=== PATIENT | male | born 1990 | race Caucasian/White ===

== ENCOUNTER → 2020-02-22 15:01 | Outpatient (BNVA) | payer OTHER, SELFPAY | PROVIDERS: PCP Internal Medicine; Visit Provider Internal Medicine Gastroenterology | DX: Z76.89 Persons encountering health services in other specified circumstances (principal) ==

== ENCOUNTER → 2020-03-20 10:11 | Outpatient (BNVA) | payer OTHER, SELFPAY | PROVIDERS: PCP Internal Medicine; Visit Provider Nurse Practitioner Family ==

== ENCOUNTER 2020-04-11 07:03 | Outpatient (REF) | payer OTHER, SELFPAY | END 2020-04-11 07:04 | disposition home or self-care (01) | LOC: HO.RADIR 07:03 | PROVIDERS: Visit Provider Anesthesiology | DX: Z13.89 Encounter for screening for other disorder (principal) ==

== ENCOUNTER 2020-05-02 06:09 | Outpatient (REF) | payer OTHER, SELFPAY ==
--- NOTE | ~2020-05-02 | FL_ITS ---
EXAMINATION: XR FLUOROSCOPY WITH IMAGES CLINICAL INFORMATION: Alcohol and diffuse chronic pancreatitis. COMPARISON: None. TECHNIQUE: Fluoroscopy performed by RHYS Vázquez. Fluoroscopy time: 11.4 minutes DAP: 13.1 Gycm2 Images: 2 FINDINGS: There is a AP and lateral views of the dorsal thoracic or lumbar spine. There is a needle introduced with a right-sided approach in the retroperitoneal region with contrast opacifying right and left retroperitoneal space. No gross bony abnormality seen. FL/FL guidance in treatment room IMPRESSION: Fluoroscopy guidance was utilized by the referring physician for retroperitoneal space opacification..
== END 2020-05-02 06:10 | disposition home or self-care (01) ==
LOC: HO.RADIR 06:09
PROVIDERS: Visit Provider Anesthesiology
DX: K86.0 Alcohol-induced chronic pancreatitis (principal); R10.9 Unspecified abdominal pain; G89.29 Other chronic pain
CPT/HCPCS: 64680; J3300; Q9967

== ENCOUNTER 2020-05-07 09:57 | Emergency (ER) | payer OTHER, SELFPAY ==
--- NOTE | ~2020-05-07 | CT_ITS ---
EXAMINATION: CT ABDOMEN AND PELVIS WITH CONTRAST CLINICAL INFORMATION: Abdominal pain. COMPARISON: Most recent prior CT of the abdomen and pelvis dated 09/28/2019. TECHNIQUE: Multidetector volumetric images were obtained from the superior aspect of the liver through the pubic symphysis following administration of 75 mL of Omnipaque 350 intravenous contrast. Sagittal and coronal reformatted images were obtained on the technologist's workstation. Oral contrast: No This CT examination was performed using dose optimization techniques as appropriate, variously including the following: *Automated exposure control *Adjustment of mA and/or kV according to patient size (this includes techniques or standardized protocols for targeted exams where dose is matched to indication/reason for exam; i.e. extremities or head) *Use of iterative reconstruction technique DLP: 351 mGy-cm FINDINGS: LUNG BASES: The visualized lung bases are unremarkable. LIVER, GALLBLADDER, AND BILIARY TREE: The liver is normal in size, shape, and attenuation. Subtle linear hypodensity around the falciform ligament, most consistent with focal fatty infiltration is noted, similar to prior study. No biliary ductal dilatation is present. The gallbladder is unremarkable with no evidence of radiopaque gallstones, gallbladder wall thickening, or obvious pericholecystic inflammatory changes. PANCREAS: Abnormal, shows diffuse punctate calcifications throughout the entire pancreatic gland, similar to prior study, consistent with chronic calcific pancreatitis. No evidence of any peripancreatic fluid collection, ductal dilatation, mass or lymphadenopathy present, unchanged. SPLEEN: Unremarkable. ADRENAL GLANDS: Unremarkable. KIDNEYS AND URETERS: The kidneys are normal in size, shape, and attenuation. No hydronephrosis, hydroureter, or calculi seen. No perinephric stranding. BLADDER: Distended, likely physiologic. GASTROINTESTINAL TRACT: The small and large bowel are unremarkable. The appendix is unremarkable (image #37 series 5). ABDOMINAL WALL: No significant hernia is appreciated. LYMPH NODES: Normal. VASCULAR: Unremarkable. PELVIC VISCERA: Unremarkable. No evidence of any free fluid or free air present. Multiple phleboliths are seen. OSSEOUS STRUCTURES: Unremarkable. CT/CT abdomen pelvis w con IMPRESSION: 1. No CT evidence of any acute intra-abdominal and/or intrapelvic pathology is present. 2. Evidence of chronic calcific pancreatitis without any superimposed acute complication, appears similar to prior study dated 09/28/2019. 3. Distended urinary bladder, likely physiologic.
[2020-05-07 10:14] VITALS: BP 123/86; BP 142/90; PULSE 65; PULSE 82; RESP 20; TEMP 36.7; O2SAT 100; O2SAT 99; BMI 21.5
--- NOTE | 2020-05-07 11:08 | ED.ABDPAIN ---
HPI - Abdominal Pain General Chief Complaint: Abdominal Pain Stated Complaint: abd pain, chronic pancreatitis Time Seen by Provider: 05/07/20 10:57 Source: EMS Mode of arrival: EMS Limitations: no limitations History of Present Illness HPI narrative: 29-year-old male with history of anxiety disorder and chronic pancreatitis in the setting of alcohol abuse has had chronic recurrent abdominal pain secondary to this last drink alcohol 2 years ago being seen by Gastroenterology here as well as pain management most recently on 05/02/2020 (5 days ago) has had celiac plexus block pain management here he presents via EMS with complaint of diffuse upper abdominal pain in the epigastrium and left upper quadrant states it feels like bout of pancreatitis. States he has had significant pain and associated nausea with several episodes of vomiting. States the nerve block felt like it helped for a day however has not had much relief since. Denies any diarrhea, fever, chest pain or shortness of breath. No recent URI. MD elicited complaint: abdominal pain Onset (ago): hour(s) Pain Consistency: constant Location: diffuse Severity: severe Quality: aching and sharp Migration to: no migration Exacerbating factors: eating Relieving factors: nothing Associated symptoms: nausea and vomiting Related Data Home Medications Medication Instructions Recorded Confirmed clonazepam 2 mg tablet 1 mg PO BID 02/22/20 05/07/20 diclofenac potassium 50 mg tablet 50 mg PO DAILY 02/22/20 05/07/20 trazodone 100 mg tablet 100 mg PO BID 03/20/20 05/07/20 Previous Rx's Medication Instructions Recorded mirtazapine 15 mg tablet 15 mg PO BEDTIME #30 tab 02/22/20 enqfpb-gdyytjdo-odqriyn 3 cap PO TID 30 Days #270 cap 03/16/20 12,000-38,000-60,000 unit capsule,delayed rel hyoscyamine sulfate 0.125 mg 0.125 mg PO BID-QID PRN #60 tab 03/30/20 disintegrating tablet linaclotide 290 mcg capsule 290 mcg PO QAM 30 Days #30 cap 04/19/20 diazepam 5 mg tablet 5 mg PO ONCE PRN #2 tab 04/30/20 dicyclomine 20 mg PO BID #10 tab 05/07/20 ondansetron HCl [Zofran] 4 mg PO Q8H PRN #10 tab 05/07/20 Allergies Allergy/AdvReac Type Severity Reaction Status Date / Time No Known Allergies Allergy Verified 05/02/20 14:50 [No Known Allergies*] Review of Systems Review of Systems Constitutional: No Weight loss, No Fever, No Chills, No Night Sweats, No Fatigue, No Malaise ENT/Mouth: No Hearing loss, No Ear Pain, No Nasal Congestion, No Sinus Pain, No Hoarseness, No sore throat, No Rhinorrhea, No Swallowing Difficulty Eyes: No Eye Pain, No Swelling, No Redness, No Foreign Body, No Discharge, No Vision Changes Cardiovascular: No Chest Pain, No SOB, No Dyspnea on Exertion, No Orthopnea, No Edema, No Palpitations Respiratory: No Cough, No Sputum, No Wheezing, No Smoke Exposure, No Dyspnea Gastrointestinal: As noted per HPI, No Hematochezia, No Melena Genitourinary: No Dysuria, No Urinary Frequency, No Hematuria, No Urinary Incontinence, No Urgency, No Flank Pain, No Urinary Flow Changes, No Hesitancy Musculoskeletal: No joint pain, No Myalgias, No Joint Swelling Skin: No Skin Lesions, No rash Neuro: No Weakness, No Numbness, No Paresthesias, No Loss of Consciousness, No Dizziness, No Headache Psych: No Anxiety/Panic, No Depression, No SI/HI/AH/VH Heme/Lymph: No Bruising, No Bleeding,No Lymphadenopathy Endocrine: No Polyuria, No Polydipsia, No Temperature Intolerance Yes all other systems are reviewed and are negative Physical Exam Vital Signs: Vital Signs: Last Vital Signs Temp 97.6 F 05/07/20 12:49 Pulse 82 05/07/20 15:38 Resp 16 05/07/20 15:38 BP 130/72 05/07/20 15:38 Pulse Ox 97 05/07/20 15:38 Body Mass Index 21.5 Reviewed Const: General: acute distress (Appears uncomfortable in pain grimacing) moderate; No intoxicated appearing Nutritional Appearance: average body habitus Orientation/consciousness: patient oriented x3 HENMT: Head: Yes normal to inspection Ears: hearing grossly normal bilaterally Eyes: General: appearance normal, both eyes and all related structures Visual Rolle: normal visual rolle by confrontation Neck: Neck: Yes normal visual inspection, No positive Brudzinski's sign, No positive Kernig's sign and No tender Thyroid: Thyroid normal Chest: Chest palpation & inspection: normal inspection of the chest Resp: Effort & Inspection: normal respiratory effort Auscultation: clear to auscultation bilaterally Cardio: Jugular venous distension: no JVD Rhythm: regular rhythm Heart sounds: S1 normal heart sound present and S2 normal heart sound present GI: Inspection: Yes normal to inspection Palpation (GI): Soft to palpation and Tenderness to palpation present (GI) in the epigastrum and in the LUQ Percussion: Yes normal to percussion Auscultation: normal bowel sounds : General: Yes no CVA tenderness Back/Spine/Pelvis: Back: no CVA tenderness Skin: General skin exam: no rashes or lesions noted Neuro: General: patient oriented x3 Extrem: General: Yes normal to inspection Psych: Other: Anxious appearing MDM - Abdominal Pain MDM Narrative Medical decision making narrative: Requiring several rounds of pain medication though labs were stable given the significant pain CT of the abdomen pelvis done to rule out acute pathology this was negative. After receiving hydromorphone felt better at this time would like to go home and will follow-up closely with GI and pain management. Will give her short course of Zofran and Bentyl. Mass pat reviewed he is already on maintenance tramadol. Tolerating p.o. intake well. Abdominal exam remained stable. No evidence of peritonitis. Stable for discharge. Differential Diagnosis Differential diagnosis: Likely abdominal pain, gastritis and pancreatitis; Unlikely aortic dissection, acute appendicitis, bowel perforation, calculus of kidney, constipation, diverticulitis, endometriosis, gastroenteritis, renal colic and small bowel obstruction Medical Records Attestation: I reviewed the patient's medical records. Medical records narrative: Pain management note from 05/02/2020 regarding the nerve block GI note from 02/22/2020 Lab Data Attestation: I reviewed the patient's lab results. Result diagrams: 05/07/20 12:00 05/07/20 12:00 Labs: Lab Results 05/07/20 05/07/20 05/07/20 Range/Units 12:00 12:00 12:00 WBC 7.4 (4.8-10.8) X10*3/uL RBC 4.78 (4.60-5.80) X10*6/uL Hgb 14.4 (14.0-18.0) g/dl Hct 41.6 L (42-52) % MCV 87.0 (80-98) fL MCH 30.1 (27.0-33.0) pg MCHC 34.6 (31.0-36.0) g/dl RDW 11.9 (11.0-16.0) % Plt Count 278 (160-400) X10*3/uL MPV 11.6 (9.4-12.4) fL Immature Gran % (Auto) 0.3 (0.0-0.4) % Neut % (Auto) 73.6 H (45-73) % Lymph % (Auto) 20.4 (20-40) % [place] % (Auto) 5.4 (2-11) % Eos % (Auto) 0.0 (0-4) % Baso % (Auto) 0.3 (0-2) % Lymph # (Auto) 1.5 (1.2-4.9) X10*3/uL [place] # (Auto) 0.4 (0.1-1.2) X10*3/uL Eos # (Auto) 0.0 (0.0-0.4) X10*3/uL Baso # (Auto) 0.0 (0.0-0.2) X10*3/uL Abs Immat Gran (auto) 0.02 (0.00-0.03) X10*3/uL Absolute Neuts (auto) 5.4 (2.0-8.3) X10*3/uL Absolute Nucleated RBC 0.000 (0.0-0.012) X10*3/uL Nucleated RBC % (auto) 0.0 (0.0-0.2) /100WBC PT 13.5 H (10.8-13.0) SEC INR 1.1 (0.9-1.1) APTT 33.1 (24.1-38.0) SEC Sodium 139 (135-145) mmol/L Potassium 4.0 (3.3-5.1) mmol/L Chloride 102 (96-108) mmol/L Carbon Dioxide 21 L (22-29) mmol/L Anion Gap 20 (12-20) BUN 18 H (9-16) mg/dL Creatinine 0.81 (0.5-1.4) mg/dL Estim Creat Clear Calc 127.1 Estimated GFR > 60 Random Glucose 106 (60-115) mg/dL Calcium 10.5 H (8.4-10.2) mg/dL Total Bilirubin 1.0 (0.0-1.0) mg/dL AST 15 (5-37) U/L ALT 10 (0-40) U/L Alkaline Phosphatase 74 (39-117) U/L Total Protein 9.2 H (6.5-8.0) g/dL Albumin 5.5 H (3.5-5.0) g/dL Amylase (28-100) U/L Lipase (8-78) U/L Ethyl Alcohol mg/dL 05/07/20 05/07/20 Range/Units 12:00 12:00 WBC (4.8-10.8) X10*3/uL RBC (4.60-5.80) X10*6/uL Hgb (14.0-18.0) g/dl Hct (42-52) % MCV (80-98) fL MCH (27.0-33.0) pg MCHC (31.0-36.0) g/dl RDW (11.0-16.0) % Plt Count (160-400) X10*3/uL MPV (9.4-12.4) fL Immature Gran % (Auto) (0.0-0.4) % Neut % (Auto) (45-73) % Lymph % (Auto) (20-40) % [place] % (Auto) (2-11) % Eos % (Auto) (0-4) % Baso % (Auto) (0-2) % Lymph # (Auto) (1.2-4.9) X10*3/uL [place] # (Auto) (0.1-1.2) X10*3/uL Eos # (Auto) (0.0-0.4) X10*3/uL Baso # (Auto) (0.0-0.2) X10*3/uL Abs Immat Gran (auto) (0.00-0.03) X10*3/uL Absolute Neuts (auto) (2.0-8.3) X10*3/uL Absolute Nucleated RBC (0.0-0.012) X10*3/uL Nucleated RBC % (auto) (0.0-0.2) /100WBC PT (10.8-13.0) SEC INR (0.9-1.1) APTT (24.1-38.0) SEC Sodium (135-145) mmol/L Potassium (3.3-5.1) mmol/L Chloride (96-108) mmol/L Carbon Dioxide (22-29) mmol/L Anion Gap (12-20) BUN (9-16) mg/dL Creatinine (0.5-1.4) mg/dL Estim Creat Clear Calc Estimated GFR Random Glucose (60-115) mg/dL Calcium (8.4-10.2) mg/dL Total Bilirubin (0.0-1.0) mg/dL AST (5-37) U/L ALT (0-40) U/L Alkaline Phosphatase (39-117) U/L Total Protein (6.5-8.0) g/dL Albumin (3.5-5.0) g/dL Amylase 76 (28-100) U/L Lipase 12 (8-78) U/L Ethyl Alcohol < 10 mg/dL Imaging Data Abdomen/pelvis IV contrast: Radiologist's impression: [address] [id number] Scan ReportSigned Patient: Kt IbrahimMR#: [id number]: [id number]:[id number]/Sex: 29 / MADM Date: 05/07/20Loc: [address] Dr: Ordering Physician: James Chavez NP Date of Service: 05/07/20 Procedure(s): CT abdomen pelvis w con Accession Number(s): [id number] cc: 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 COMPARISON: Most recent prior CT of the abdomen and pelvis dated 09/28/2019. TECHNIQUE: Multidetector volumetric images were obtained from the superior aspect of the liver through the pubic symphysis following administration of 75 mL of Omnipaque 350 intravenous contrast. Sagittal and coronal reformatted images were obtained on the technologist's workstation. Oral contrast: No This CT examination was performed using dose optimization techniques as appropriate, variously including the following: *Automated exposure control *Adjustment of mA and/or kV according to patient size (this includes techniques or standardized protocols for targeted exams where dose is matched to indication/reason for exam; i.e. extremities or head) *Use of iterative reconstruction technique DLP: 351 mGy-cm FINDINGS: LUNG BASES: The visualized lung bases are unremarkable. LIVER, GALLBLADDER, AND BILIARY TREE: The liver is normal in size, shape, and attenuation. Subtle linear hypodensity around the falciform ligament, most consistent with focal fatty infiltration is noted, similar to prior study. No biliary ductal dilatation is present. The gallbladder is unremarkable with no evidence of radiopaque gallstones, gallbladder wall thickening, or obvious pericholecystic inflammatory changes. PANCREAS: Abnormal, shows diffuse punctate calcifications throughout the entire pancreatic gland, similar to prior study, consistent with chronic calcific pancreatitis. No evidence of any peripancreatic fluid collection, ductal dilatation, mass or lymphadenopathy present, unchanged. SPLEEN: Unremarkable. ADRENAL GLANDS: Unremarkable. KIDNEYS AND URETERS: The kidneys are normal in size, shape, and attenuation. No hydronephrosis, hydroureter, or calculi seen. No perinephric stranding. BLADDER: Distended, likely physiologic. GASTROINTESTINAL TRACT: The small and large bowel are unremarkable. The appendix is unremarkable (image #[id number] series 5). ABDOMINAL WALL: No significant hernia is appreciated. LYMPH NODES: Normal. VASCULAR: Unremarkable. PELVIC VISCERA: Unremarkable. No evidence of any free fluid or free air present. Multiple phleboliths are seen. OSSEOUS STRUCTURES: Unremarkable. CT/CT abdomen pelvis w con IMPRESSION: 1. No CT evidence of any acute intra-abdominal and/or intrapelvic pathology is present. 2. Evidence of chronic calcific pancreatitis without any superimposed acute complication, appears similar to prior study dated 09/28/2019. 3. Distended urinary bladder, likely physiologic. 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 Follow-up pain management Return if any concerns or worsening symptoms Thank you Prescriptions: New ondansetron HCl [Zofran] 4 mg tablet 4 mg PO Q8H PRN (Reason: nausea and vomiting) Qty: 10 RF: 0 dicyclomine 20 mg tablet 20 mg PO BID Qty: 10 RF: 0 No Action Creon 12,000-38,000 -60,000 unit capsule,delayed release(DR/EC) 3 cap PO TID 30 Days Qty: 270 RF: 6 hyoscyamine sulfate 0.125 mg tablet,disintegrating 0.125 mg PO BID-QID PRN (Reason: dyspepsia) Qty: 60 RF: 2 Linzess 290 mcg capsule 290 mcg PO QAM 30 Days Qty: 30 RF: 2 diazepam [Valium] 5 mg tablet 5 mg PO ONCE PRN (Reason: anxiety) Qty: 2 RF: 0 diclofenac potassium 50 mg tablet 50 mg PO DAILY RF: 0 clonazepam 2 mg tablet 1 mg PO BID RF: 0 mirtazapine [Remeron] 15 mg tablet 15 mg PO BEDTIME Qty: 30 RF: 2 trazodone 100 mg tablet 100 mg PO BID RF: 0 Referrals: Josh Velez MD [Primary Care Provider] - 2 days Lucas Latham MD [Physician] - 2 days [facility] Past Medical History Medical History (Updated 05/07/20 @ 17:15 by James Chavez NP) Anxiety Chronic abdominal pain Chronic pancreatitis Family History Family History (Updated 02/22/20 @ 15:06 by Beth Elkins CMA) Father No problems noted. Mother No problems noted. Social History Social History (Updated 02/22/20 @ 15:27 by Lucas Latham MD) Alcohol intake: former Smoking Status: Former smoker Use of substances other than those prescribed or required for medical reasons: No Advance Directives: No Advance Directives Information Provided: No
[2020-05-07] MEDS: Morphine Sulfate 4 MG/ML CARTRIDGE IVPUSH ×2 (11:37→12:40)
[2020-05-07] MEDS: diphenhydrAMINE HCL 50 MG/ML VIAL 25 MG IVPUSH (11:39)
[2020-05-07] MEDS: Lidocaine HCl Viscous 2 % 15 ML SOLUTION 10 ML MUCOUS MEM (11:46)
[2020-05-07] MEDS: Magnesium Hydrox/Alum Hydrox 30 ML ORAL.SUSP PO (11:46)
[2020-05-07] MEDS: 0.9 % Sodium Chloride 1,000 ML 999 ML IV (11:47)
[2020-05-07 11:48] VITALS: BP 123/80
[2020-05-07 12:09] LABS: MANUAL DIFF FLAG NO
[2020-05-07 12:11] LABS: Basophils Percent Auto 0.3 % (0-2); Hematocrit 41.6 % (42-52); Hemoglobin 14.4 g/dl (14.0-18.0); Imm Gran Abs Auto 0.02 X10*3/uL (0.00-0.03); Imm Gran Pct Auto 0.3 % (0.0-0.4); Lymphocytes Absolute Auto 1.5 X10*3/uL (1.2-4.9); Lymphocytes Percent Auto 20.4 % (20-40); Mean Corpuscular HGB Conc 34.6 g/dl (31.0-36.0); Mean Corpuscular Hemoglobin 30.1 pg (27.0-33.0); Mean Platelet Volume 11.6 fL (9.4-12.4); Monocytes Absolute Auto 0.4 X10*3/uL (0.1-1.2); Monocytes Percent Auto 5.4 % (2-11); Neutrophils Absolute Auto 5.4 X10*3/uL (2.0-8.3); Neutrophils Percent Auto 73.6 % (45-73); Platelet Count 278 X10*3/uL (160-400); Red Blood Count 4.78 X10*6/uL (4.60-5.80); Red Cell Distribution Width 11.9 % (11.0-16.0); White Blood Count 7.4 X10*3/uL (4.8-10.8)
[2020-05-07 12:16] LABS: INTERNATIONAL NORM RATIO 1.1 (0.9-1.1); Prothrombin Time 13.5 SEC (10.8-13.0)
[2020-05-07 12:19] LABS: Partial Thromboplastin Time 33.1 SEC (24.1-38.0)
[2020-05-07 12:30] LABS: Ethanol < 10 mg/dL
[2020-05-07 12:40] LABS: Alanine Aminotransferase 10 U/L (0-40); Albumin Level 5.5 g/dL (3.5-5.0); Alkaline Phosphatase 74 U/L (39-117); Anion Gap 20 (12-20); Aspartate Amino Transferase 15 U/L (5-37); Blood Urea Nitrogen 18 mg/dL (9-16); Calcium 10.5 mg/dL (8.4-10.2); Carbon Dioxide 21 mmol/L (22-29); Chloride 102 mmol/L (96-108); Creatinine Clr Calc Pharmacy 127.1; Estimated Glomerular Filt Rate > 60; Glucose Random 106 mg/dL (60-115); Sodium 139 mmol/L (135-145); Total Protein 9.2 g/dL (6.5-8.0)
[2020-05-07 12:42] LABS: Amylase 76 U/L (28-100); Lipase 12 U/L (8-78)
[2020-05-07 12:49] VITALS: BP 126/82; PULSE 57; TEMP 36.4; O2SAT 100
[2020-05-07] MEDS: iohexoL 350 MG/ML 75 ML INFUS..BTL IV (14:38)
[2020-05-07 15:38] VITALS: BP 130/72; PULSE 82; RESP 16; O2SAT 97
[2020-05-07] MEDS: HYDROmorphone HCl 0.5 MG/0.5 ML SYRINGE IVPUSH (16:15)
[2020-05-07] MEDS: oxyCODONE HCl Immed Release 5 MG TABLET 10 MG PO (18:05)
== END 2020-05-07 18:33 | disposition home or self-care (01) ==
PROVIDERS: Nurse Practitioner Primary Care; Emergency Provider Emergency Medicine; PCP Internal Medicine
DX: K86.0 Alcohol-induced chronic pancreatitis (principal); Z79.899 Other long term (current) drug therapy
CPT/HCPCS: 36415; 74177; 80053; 80320; 82150; 83690; 85025; 85610; 85730; 96361; 96365; 96375; 96376; 99284; J1170; J1200; J2270; Q9967

== ENCOUNTER → 2020-05-17 09:52 | Outpatient (BNVA) | payer OTHER, SELFPAY | PROVIDERS: PCP Internal Medicine; Visit Provider Nurse Practitioner Family ==

== ENCOUNTER → 2020-06-06 09:07 | Outpatient (BNVA) | payer OTHER, SELFPAY | PROVIDERS: PCP Internal Medicine; Visit Provider Internal Medicine Gastroenterology ==

== ENCOUNTER → 2020-07-13 15:27 | Outpatient (BNVA) | payer OTHER, SELFPAY | PROVIDERS: PCP Internal Medicine; Visit Provider Internal Medicine Gastroenterology ==

== ENCOUNTER → 2021-02-16 08:25 | Outpatient (BNVA) | payer OTHER, SELFPAY | PROVIDERS: PCP Internal Medicine; Visit Provider Internal Medicine Gastroenterology ==

== ENCOUNTER 2021-05-25 16:06 | Outpatient (REF) | payer OTHER, SELFPAY ==
[2021-05-25 17:46] LABS: MANUAL DIFF FLAG NO
[2021-05-25 18:01] LABS: Estimated Average Glucose 120 mg/dL; Hemoglobin A1C 152.4806 umol/L; Hemoglobin A1c % 5.8 %
[2021-05-25 18:11] LABS: Alanine Aminotransferase 76 U/L (0-40); Albumin Level 4.9 g/dL (3.5-5.0); Alkaline Phosphatase 107 U/L (39-117); Anion Gap 18 (12-20); Aspartate Amino Transferase 46 U/L (5-37); Bilirubin Total 0.5 mg/dL (0.0-1.0); Blood Urea Nitrogen 14 mg/dL (9-16); Calcium 10.3 mg/dL (8.4-10.2); Carbon Dioxide 26 mmol/L (22-29); Chloride 100 mmol/L (96-108); Estimated Glomerular Filt Rate > 60; Glucose Random 82 mg/dL (60-115); Potassium 4.4 mmol/L (3.3-5.1); Sodium 140 mmol/L (135-145); Total Protein 8.8 g/dL (6.5-8.0)
[2021-05-25 18:16] LABS: Basophils Percent Auto 0.4 % (0-2); Hematocrit 43.2 % (42.0-52.0); Hemoglobin 14.3 g/dl (14.0-18.0); Imm Gran Abs Auto 0.03 X10*3/uL (0.00-0.03); Imm Gran Pct Auto 0.4 % (0.0-0.4); Lymphocytes Absolute Auto 3.4 X10*3/uL (1.2-4.9); Lymphocytes Percent Auto 40.6 % (20-40); Mean Corpuscular HGB Conc 33.1 g/dl (31.0-36.0); Mean Corpuscular Hemoglobin 28.9 pg (27.0-33.0); Mean Corpuscular Volume 87.4 fL (80.0-98.0); Monocytes Absolute Auto 0.6 X10*3/uL (0.1-1.2); Neutrophils Absolute Auto 4.3 x10*3/uL (2.0-8.3); Neutrophils Percent Auto 51.6 % (45-73); Platelet Count 288 X10*3/uL (160-400); Red Blood Count 4.94 X10*6/uL (4.60-5.80); Red Cell Distribution Width 12.6 % (11.0-16.0); White Blood Count 8.3 X10*3/uL (4.8-10.8)
[2021-05-25 18:35] LABS: Thyroid Stimulating Hormone 1.65 uIU/mL (0.32-4.0)
== END 2021-05-25 16:07 | disposition home or self-care (01) ==
LOC: HO.MANLDS 16:06
PROVIDERS: PCP Internal Medicine; Visit Provider Internal Medicine
DX: R63.5 Abnormal weight gain (principal)
CPT/HCPCS: 36415; 80053; 83036; 84443; 85025

== ENCOUNTER → 2021-06-06 14:49 | Outpatient (BNVA) | payer OTHER, SELFPAY | PROVIDERS: PCP Internal Medicine; Visit Provider Anesthesiology | DX: Z13.89 Encounter for screening for other disorder (principal) ==

== ENCOUNTER → 2021-06-15 10:14 | Outpatient (BNVA) | payer OTHER, SELFPAY | PROVIDERS: PCP Internal Medicine; Visit Provider Internal Medicine Gastroenterology | DX: Z13.89 Encounter for screening for other disorder (principal) ==

== ENCOUNTER 2021-12-26 09:58 | Outpatient (REF) | payer OTHER, MEDICAID, SELFPAY ==
--- NOTE | ~2021-12-26 | MR_ITS ---
EXAMINATION: MRI ABDOMEN WITH AND WITHOUT CONTRAST CLINICAL INFORMATION: Alcohol-induced chronic pancreatitis. COMPARISON: CT 05/07/2020 TECHNIQUE: Multiple routine MRI sequences through the abdomen were obtained on a high-field 1.5 Gme MRI before and after the uneventful administration of 10 mL of Gadavist gadolinium-based IV contrast. Dynamic post-contrast images were obtained. FINDINGS: LUNG BASES: Lung bases are clear. LIVER: Mild loss of signal on opposed phase gradient echo T1 weighted images suggesting mild hepatic steatosis. Liver enhances normally. No focal lesion seen. Hepatic and portal veins enhance normally. GALLBLADDER AND BILIARY TREE: There are 2 tiny 1 to 2 mm T2 dark structures along the dependent posterior wall of the gallbladder series 4 image 12/25. These could represent tiny stones or polyps. They were not definitely seen on prior CT scan. Gallbladder otherwise well distended with no pericholecystic fluid or inflammatory changes. SPLEEN: Normal. Normal size. No focal lesion. PANCREAS: The pancreas is mildly atrophic. There is diffuse irregularity and mild dilation of the pancreatic duct measuring up to 4 mm. The pancreatic duct in the head of the pancreas is not visualized extending to the distal common bile duct at the ampulla. No accessory duct is visualized. ADRENAL GLANDS: Normal. No adrenal mass. KIDNEYS AND URETERS: Normal symmetric renal enhancement. No hydronephrosis or mass. LYMPHOVASCULAR STRUCTURES: Normal caliber aorta. IVC patent. No pathologically enlarged abdominal or retroperitoneal lymphadenopathy by short axis size criteria. OSSEOUS STRUCTURES: No acute or suspicious osseous abnormalities. MR/MR abdomen wo/w con IMPRESSION: Abnormal appearance of the pancreatic duct which is diffusely irregular and mildly dilated, consistent with findings of chronic calcific pancreatitis on prior CT scan. No discrete pancreatic mass seen. No acute peripancreatic inflammatory changes. There is an approximately 1 cm segment of the pancreatic duct in the head of the pancreas which is not visualized. This could be due to a stricture and/or obstructing calculus. Pancreas divisum is not seen. 2 tiny 1-2 mm nodular structures along the posterior wall the gallbladder could represent tiny stones or polyps. Consider correlation with ultrasound.
== END 2021-12-26 09:59 | disposition home or self-care (01) ==
LOC: HO.MRI 09:58
PROVIDERS: PCP Internal Medicine; Visit Provider Internal Medicine Gastroenterology
DX: K86.0 Alcohol-induced chronic pancreatitis (principal); G89.4 Chronic pain syndrome
CPT/HCPCS: 74183; A9585

== ENCOUNTER → 2022-04-12 11:16 | Outpatient (BNVA) | payer MEDICAID, OTHER, SELFPAY | PROVIDERS: PCP Internal Medicine; Visit Provider Internal Medicine Gastroenterology | DX: Z13.89 Encounter for screening for other disorder (principal) ==

== ENCOUNTER → 2022-06-07 09:59 | Outpatient (BNVA) | payer MEDICAID, OTHER, SELFPAY | PROVIDERS: PCP Internal Medicine; Visit Provider Internal Medicine Gastroenterology ==

== ENCOUNTER 2022-07-12 10:15 | Outpatient (REF) | payer MEDICARE, MEDICAID, SELFPAY ==
--- NOTE | ~2022-07-12 | MR_ITS ---
EXAMINATION: MRI ABDOMEN WITH AND WITHOUT CONTRAST CLINICAL INFORMATION: H/O PANCREATITIS COMPARISON: Prior studies including the 12/26/2021 MRI TECHNIQUE: Multiple routine MRI sequences through the abdomen were obtained on a high-field 1.5Tesla MRI. Pre-and postcontrast images with 9 mL of Gadavist intravenous contrast were obtained. This included a dynamic contrast-enhanced technique. FINDINGS: Lung bases: The visualized lung bases are unremarkable. Liver: The liver is normal in size, shape, and signal. No suspicious focal hepatic lesions seen. Specifically no suspicious arterial phase enhancing lesions or suspicious washout of contrast on later phases. No biliary ductal dilatation. No intraluminal filling defects seen within the common bile duct Gallbladder: Gallbladder is currently contracted but otherwise unremarkable. No suspicious gallstones or filling defects. No gallbladder wall thickening or pericholecystic inflammatory changes. Pancreas: There is diffuse loss of the normal T1 bright pancreatic parenchymal signal suggesting sequela of prior pancreatitis. I do not appreciate any acute peripancreatic inflammatory changes or fluid. Pancreatic duct is irregular in contour measuring up to 0.5 cm in maximal diameter in the pancreatic head/neck region. I do not appreciate significant acinarization. Even on the thin slice images the pancreatic duct in the region of the distal pancreatic head is not well assessed or well visualized. Again this could represent sequela of prior pancreatitis. Extensive pancreatic parenchymal calcifications seen on the prior CT scan are not readily apparent on the MRI. Spleen: Unremarkable Adrenals: Unremarkable Kidneys: Kidneys are normal in size, shape, and signal. No suspicious renal mass lesion seen. No hydronephrosis or perinephric edema. Other: No bulky adenopathy MR/MR abdomen wo/w con IMPRESSION: There is diffuse loss of the normal T1 signal within the pancreas suggesting sequela of prior pancreatitis. I do not appreciate any acute peripancreatic inflammatory changes or fluid. The pancreatic duct is irregular in contour measuring up to 0.5 cm in maximal diameter in the pancreatic head/neck region. Even on the thin slice images the pancreatic duct in the region of the distal pancreatic head is not well assessed or well visualized. Again these findings likely represent sequela of prior/chronic pancreatitis. Extensive pancreatic parenchymal calcifications seen on the prior CT scan are not readily apparent on the MRI.
== END 2022-07-12 10:16 | disposition home or self-care (01) ==
LOC: HO.MRI 10:15
PROVIDERS: PCP Internal Medicine; Visit Provider Internal Medicine Gastroenterology
DX: G89.4 Chronic pain syndrome (principal); K86.1 Other chronic pancreatitis
CPT/HCPCS: 74183; A9585

== ENCOUNTER 2022-09-16 06:07 | Outpatient (REF) | payer MEDICARE, MEDICAID, SELFPAY ==
--- NOTE | ~2022-09-16 | XR_ITS ---
EXAMINATION: XR ABDOMEN KUB CLINICAL INDICATION: Chronic pain syndrome COMPARISON: 05/07/2020 TECHNIQUE: AP view of the abdomen. FINDINGS: No gross evidence of intra-abdominal free air and supine positioning. Bowel gas pattern is nonobstructive. Large amount of stool is present. Pancreatic calcifications are consistent with chronic pancreatitis. Phleboliths are present in the pelvis. Limited included lung bases appear well-aerated. XR/XR KUB IMPRESSION: Large volume of stool. Chronic pancreatitis.
== END 2022-09-16 06:08 | disposition home or self-care (01) ==
LOC: HO.XRAY 06:07
PROVIDERS: PCP Internal Medicine; Visit Provider Internal Medicine Gastroenterology
DX: R10.9 Unspecified abdominal pain (principal); G89.4 Chronic pain syndrome
CPT/HCPCS: 74018

== ENCOUNTER 2022-10-11 08:55 | Outpatient (AMB) | payer MEDICARE, MEDICAID, SELFPAY ==
--- NOTE | 2022-10-11 08:55 | A.OFFVIS_ITS ---
Intake Intake Visit Reasons: Medication discuss Intake Note: Kt presents as a video call today. CC: He feels like he wants to switch to Amitriptline and stop medication that he is currently on. He is having discomfort and pains in his pancreas area. On and off between constipation and diarrhea. Linzess seems to be helping. 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 he was c/o general body aches ? he feels constipated and takes miralax which helps, if not taking will not go to toilet for 1 week ? been that way for years, since even as a young child ? lots of anxiety ? has abdominal pain around umbilicus, soreness, can be 10/10 in severity ? if he passes stool or gas helps reduce pain ? appetite is fair, trying gluten free diet ? occ gerd, no dysphagia ? has joint pains, aches in general, no swollen joints he was on lyrica for pain but was changed to gabapentin He has been alcohol free for long time now ? CTe abdo-- 09/2019--calcified and atrophic pancreas, mild accentuation of the valvulae conniventes mid to distal jejunum and mid ileum without focal wall thickening He had been following up with pain mx, he had celiac axis blockade with short term benefit, he also failed nerve stimulator Gene testing: neg for SPINK and CFTR, for some reason PRSS was not checked MRI: 12/2021 atrophic pancreas, dilated, irreg PD, possible stricture of panc head but not well visualized MRI 2022 PD 5 mm--irregular sequela of chronic panc noted, no masses ? INTERIM: He is asking to try TCA for pain control and depression he was recently commenced on viladozone, and has been titrated up just now to 40 mg he feels it has not helped his depression at all or pain he is taking trazodone v occasionally, has also been given topirimate but he doesn't like taking it as he feels it does not help pain comes and goes, constipaiton also a problem, but linazlotide helps, taking gabapentin 600 mg TID occ nausea --no vomiting, appetite has been fair He thinks trental does help but can forget to take EXAM: relaxed, talking easily not distressed good color Assessment & Plan (1) Chronic calcific pancreatitis: Assessments ? 1. epigastric pain 2/2 Alcohol-induced chronic pancreatitis , ongoing not fully controlled with meds, he might benefit from Beatriz or Puestow procedure but he wants to try TCA first --have to [facility] 2. constipation--managed with linaclotide, ? PLAN 1/? ?cont with DIANA 600 mg TID, cont trental--can take BID, 2/ check with his psych provider abt stopping vilazodne and adding TCA-- refer surgery for Puestow procedure if ongoing issues ?? [facility] Medical History Anxiety Chronic abdominal pain Chronic pain syndrome Chronic pancreatitis Family History Father No problems noted. Mother No problems noted. Maternal Grandmother Pancreatic cancer Social History Household Members: Family and None Alcohol intake: current Alcohol intake frequency: does not drink Substance Use Type: Marijuana Assessment & Plan Assessment & Plan (1) Chronic pain syndrome: Code(s): G89.4 - Chronic pain syndrome (2) Chronic pancreatitis: Code(s): K86.1 - Other chronic pancreatitis Qualifiers: Pancreatitis type: alcohol induced Qualified Code(s): K86.0 - Alcohol- induced chronic pancreatitis Telehealth Telehealth Location of provider rendering services: practice address Location of patient: address on file Patient Identification confirmed using: Name, : Yes Telehealth method: video Patient verbally consented to treatment: Yes Patient verbally consented to billing insurance company: Yes Patient informed of any privacy concerns related to visit: Yes Minutes spent on Phone/Video with Pt.: 15 Coding Level of Care Code Tele Est Pt Level 3 (15721) Diagnoses Chronic pain syndrome G89.4 Chronic pancreatitis K86.0 Pancreatitis type: alcohol induced
== END 2022-10-11 10:14 | disposition home or self-care (01) ==
LOC: HO.HGI 08:55
PROVIDERS: PCP Internal Medicine; Visit Provider Internal Medicine Gastroenterology
DX: G89.4 Chronic pain syndrome (principal); K86.0 Alcohol-induced chronic pancreatitis; R10.13 Epigastric pain
CPT/HCPCS: 99213

== ENCOUNTER → 2022-10-11 08:55 | Outpatient (BNVA) | payer MEDICARE, MEDICAID, SELFPAY | PROVIDERS: PCP Internal Medicine; Visit Provider Internal Medicine Gastroenterology | DX: K86.0 Alcohol-induced chronic pancreatitis (principal); G89.4 Chronic pain syndrome | CPT/HCPCS: Q3014 ==

== ENCOUNTER 2023-02-10 10:29 | Outpatient (AMB) | payer MEDICARE, MEDICAID, SELFPAY ==
--- NOTE | 2023-02-10 10:29 | MHC.OFFVIS ---
Intake Intake Visit Reasons: 4 month follow up Intake Note: Kt presents as a video call for a 4 month follow up. CC: Food not digesting from his stomach to pancreas and he feels a lot of pressure and pains. Having both constipation and diarrhea. Allergies No Known Allergies [No Known Allergies*] Allergy (Verified 02/10/23 10:30) HPI 4 month follow up HPI Details 32 yr old m being called for f/u for chronic pancreatitis RECAP; Hx of chronic pancreatitis related to alcohol he was c/o general body aches he feels constipated and takes miralax which helps, if not taking will not go to toilet for [address] for years, since even as a young child lots of anxiety has abdominal pain around umbilicus, soreness, can be 10/10 in severity if he passes stool or gas helps reduce pain appetite is fair, trying gluten free diet occ gerd, no dysphagia has joint pains, aches in general, no swollen joints he was on lyrica for pain but was changed to gabapentin He has been alcohol free for long time now CTe abdo-- 09/2019--calcified and atrophic pancreas, mild accentuation of the valvulae conniventes mid to distal jejunum and mid ileum without focal wall thickening He had been following up with pain mx, he had celiac axis blockade with short term benefit, he also failed nerve stimulator Gene testing: neg for SPINK and CFTR, for some reason PRSS was not checked MRI: 12/2021 atrophic pancreas, dilated, irreg PD, possible stricture of panc head but not well visualized MRI 2022 PD 5 mm--irregular sequela of chronic panc noted, no masses INTERIM: he still has issues with constipation and fullness he takes MOM which seems to work the best depression can be low at times he got changed from vilazodone to lexapro, and seems to be helping depression pain can be strong and intense at times linaclotide every day also helps trental not really helping weight has been going down a little occ nausea -doesnt last long though has EGD coming up for further evaluation EXAM: relaxed, talking easily not distressed good color Assessments 1. epigastric pain 2/2 Alcohol-induced chronic pancreatitis , ongoing not fully controlled with meds, he might benefit from Beatriz or Puestow procedure ((Latosha Rios, [facility], ), might have superimposed epigastric pain syndrome 2. constipation--managed with linaclotide, MOM, lactulose PLAN 1/ trial of reglan for short time to see if helps, only on lexapro 10 mg, advised to call me if any movement problems, jerking etc --might help constipation as well 2/ refer surgery for Puestow procedure if ongoing issues but wait for EGD first with balloon dilation of pylorus PFSH Medical History Anxiety Chronic abdominal pain Chronic pain syndrome Chronic pancreatitis Family History Father No problems noted. Mother No problems noted. Maternal Grandmother Pancreatic cancer Social History Household Members: Family and None Alcohol intake: current Alcohol intake frequency: does not drink Substance Use Type: Marijuana Assessment & Plan Assessment & Plan (1) Chronic pancreatitis: Code(s): K86.1 - Other chronic pancreatitis Qualifiers: Pancreatitis type: alcohol induced Qualified Code(s): K86.0 - Alcohol-induced chronic pancreatitis Plan see above Medications: New metoclopramide HCl 5 mg PO DAILY 10 tabs 0RF Refilled lactulose 30 mL PO BID 946 mL 2RF Discontinued pentoxifylline ER must administer with a meal/food Discontinued Reason: Doctor's Order 400 mg PO TID 90 tabs 2RF Telehealth Telehealth Location of provider rendering services: practice address Location of patient: address on file Patient Identification confirmed using: Name, : Yes Telehealth method: video Patient verbally consented to treatment: Yes Patient verbally consented to billing insurance company: Yes Patient informed of any privacy concerns related to visit: Yes Minutes spent on Phone/Video with Pt.: 15 Coding Level of Care Code Tele Est Pt Level 3 (41560) Diagnoses Alcohol-induced chronic pancreatitis K86.0 Pancreatitis type: alcohol induced
== END 2023-02-10 13:58 | disposition home or self-care (01) ==
LOC: HO.HGI 10:29
PROVIDERS: PCP Internal Medicine; Visit Provider Internal Medicine Gastroenterology
DX: K86.0 Alcohol-induced chronic pancreatitis (principal)
CPT/HCPCS: 99213

== ENCOUNTER → 2023-02-10 10:29 | Outpatient (BNVA) | payer MEDICARE, MEDICAID, SELFPAY | PROVIDERS: PCP Internal Medicine; Visit Provider Internal Medicine Gastroenterology ==

== ENCOUNTER 2023-03-06 10:58 | Day surgery (SDC) | payer MEDICARE, MEDICAID, SELFPAY ==
[2023-03-06] VITALS (7 sets, daily range): BP systolic 93–112; BP diastolic 55–70; PULSE 58–65; RESP 16–19; TEMP 36.3–36.7; O2SAT 98–100; BMI 27.3
--- NOTE | 2023-03-06 11:49 | PC.NURSE ---
fleets enema given x2 with clear results patients sts no appetite for mths havenot eaten solid food for 3 days only drinking water
--- NOTE | 2023-03-06 12:20 | HO.ANESPROP2 ---
Documented by User: Hardeep Roach MD 03/06/23 12:22 [facility] Active Problems Active Problems: All Active Problems (Updated 03/06/23 @ 11:34 by Rosario Stevens RN) Chronic pain syndrome (Acute) Anxiety (Acute) Chronic pancreatitis (Acute) Chronic abdominal pain (Acute) Past Medical History Medical History Depression Chronic pain syndrome Anxiety Chronic abdominal pain Chronic pancreatitis Family History Family History Father No problems noted. Mother No problems noted. Maternal Grandmother Pancreatic cancer Social History Social History Household Members: Family and None Alcohol intake: current Alcohol intake frequency: does not drink Patient Tobacco Use Status: Former Tobacco user Tobacco use type: Smokeless Tobacco Substance Use Type: Marijuana Are you DNR?: No Advance Directives: No Advance Directives Information Provided: Yes Recently lost weight without trying: Yes Meds Allergies Allergy/AdvReac Type Severity Reaction Status Date / Time No Known Allergies Allergy Verified 02/10/23 10:30 [No Known Allergies*] Active Medications: Current Medications Lactated Ringer's (Lr) 1,000 mls @ 50 mls/hr IVCONT .Q20H BARTOLOME Last Admin: 03/06/23 11:30 Dose: 50 mls/hr Ondansetron HCl (Ondansetron Hcl 4 Mg/2 Ml Vial) 4 mg IVPUSH ONCE PRN PRN Reason: Nausea and Vomiting Sodium Biphosphate/Sodium Phosphate (Sodium Phosphate,[place]-Dibasic 133 Ml Enema) 133 ml NH ONCE PRN PRN Reason: Consult order Last Admin: 03/06/23 11:45 Dose: 133 ml Home Medications Medication Instructions Recorded Confirmed Last Taken Type atomoxetine 18 mg capsule 18 mg PO QAM 12/07/21 03/06/23 03/05/23 History buspirone 15 mg tablet 15 mg PO TID 12/07/21 03/06/23 03/05/23 History clonazepam 1 mg tablet 1 mg PO DAILY PRN anxiety 12/07/21 03/06/23 03/06/23 History tizanidine 4 mg tablet 4 mg PO Q6H PRN Spasms 10/11/22 03/06/2303/05/24 History escitalopram oxalate 10 mg tablet 10 mg PO DAILY 02/10/23 03/06/23 03/05/23 History mirtazapine 15 mg tablet 15 mg PO BEDTIME 02/10/23 03/06/23 03/05/23 History Exam Height,Weight and Vital Signs: Height 5 ft 10 in Weight 86.409 kg Last Vital Signs Temp 98.1 F 03/06/23 11:15 Pulse 65 03/06/23 11:15 Resp 19 03/06/23 11:15 BP 108/67 03/06/23 11:21 Pulse Ox 98 03/06/23 11:15 O2 Del Method Room Air 03/06/23 11:15 Documented by User: Noah Grissom MD 03/06/23 12:39 HPI - Anesthesia Eval Consult details Narrative: Chronic Pancreatitis PMFSH Past Medical History Medical History Depression Chronic pain syndrome Anxiety Chronic abdominal pain Chronic pancreatitis Family History Family History Father No problems noted. Mother No problems noted. Maternal Grandmother Pancreatic cancer Family history of problems with anesthesia: No Surgical History History of Problems with Anesthesia: No Social History Social History Household Members: Family and None Alcohol intake: current Alcohol intake frequency: does not drink Patient Tobacco Use Status: Former Tobacco user Tobacco use type: Smokeless Tobacco Substance Use Type: Marijuana Are you DNR?: No Advance Directives: No Advance Directives Information Provided: Yes Recently lost weight without trying: Yes Meds Allergies Allergy/AdvReac Type Severity Reaction Status Date / Time No Known Allergies Allergy Verified 02/10/23 10:30 [No Known Allergies*] Home Medications Medication Instructions Recorded Confirmed Last Taken Type atomoxetine 18 mg capsule 18 mg PO QAM 12/07/21 03/06/23 03/05/23 History buspirone 15 mg tablet 15 mg PO TID 12/07/21 03/06/23 03/05/23 History clonazepam 1 mg tablet 1 mg PO DAILY PRN anxiety 12/07/21 03/06/23 03/06/23 History tizanidine 4 mg tablet 4 mg PO Q6H PRN Spasms 10/11/22 03/06/23 03/05/23 History escitalopram oxalate 10 mg tablet 10 mg PO DAILY 02/10/23 03/06/23 03/05/23 History mirtazapine 15 mg tablet 15 mg PO BEDTIME 02/10/23 03/06/23 03/05/23 History Exam Airway Mallampati Class: II TM Dist: >3cm Neck ROM: Full Loose/Missing/Broken Teeth: No Heart: [id number]+[id number] Lungs: cta b/l Assessment and Plan Assessment Anesthesia Assessment: Anesthesia Plan Discussed and Chart Reviewed Final Anesthetic Review Family History of Problems with Anesthesia: No History of Problems with Anesthesia: No NPO: Yes ASA Class: III Final Preanesthetic Review: No Changes in Pt Med Stat, Meds/Allgs Chart Reviewed, Consent Obtained/Reviewed and Anes Risks/Benef Reviewed Patient Risk: Intermediate Procedure Risk: Intermediate Assessment/Block/Sedation in SS: Assess/Block/Sedation-SS Anesthetic Plan Anesthetic Plan: MAC: and Agree w/ Assess. and Plan Disposition: Standard PACU
--- NOTE | 2023-03-06 12:31 | MHC.SHP ---
Pre-Procedural Eval Section A Date of Service: 03/06/23 Section B Chief Complaint: Other chronic pancreatitis,chronic pain Relevant Family History (Specify if Yes): No Relevant Social History: None Present Medications: see Short Stay Collaborative assessment Medical History: Significant History (anxiety, pancreatitis, ex alcohol abuse) History of Previous Operations: No relevant previous surgery Allergies: Allergies Allergy/AdvReac Type Severity Reaction Status Date / Time No Known Allergies Allergy Verified 02/10/23 10:30 [No Known Allergies*] Review of Systems Sugical H&P ROS: Negative: Constitution, Cardiovascular, Respiratory, Neurological, Psychiatric, Hem-Onc, Allergic/Immunologic, Gastrointestinal, Genitourinary, Musculoskeletal, Integumentary, Endocrine and Eyes/Ears/Nose/Throat Exam Surgical H&P Exam: Normal: HEENT, Normal: Heart, Normal: Lungs, Normal: Extremities, Normal: Abdomen, Normal: Skin and Normal: Neurological Plan Diagnosis/Plan: Unchanged I have reviewed the history and physical and performed a pertinent physical examination on my patient. No changes have occurred unless specified. Time Spent With Patient Time: Total time managing care of this patient today ____ minutes.
--- NOTE | 2023-03-06 12:32 | W.PM.OPN ---
Operative Note Operative Note Date of Service: 03/06/23 Narrative: Procedure Description: EGD Indication: abdominal pain and constipation, chronic Anesthesia: MAC FLEXIBLE TRANSORAL UPPER GASTROINTESTINAL ENDOSCOPY UPPER ENDOSCOPY Consent: Indications for the procedure and potential complications of bleeding, perforation, reaction to medications and missed diagnosis were discussed with the patient and informed consent was obtained. Instrument: Olympus GIF H 190 J mid size upper endoscope Monitoring: Vital signs and clinical assessment, continuous EKG monitoring, Pulse oximetry, Carbon Dioxide monitoring and blood pressure monitoring were done throughout the procedure. Procedure: The patient was placed in the left lateral decubitis position and pre-procedure medications were administered and a bite block was placed. The endoscope was inserted into the mouth and advanced under direct vision to the third part of duodenum. A careful inspection was made as the upper endoscope was withdrawn including a retroflexed examination of the proximal stomach; Findings and interventions are described below. Findings: Larynx:normal Esophagus: GE junction at 38 cm, diaphragm hiatus at 38 cm, no varices or esophagitis. Stomach: Diffuse patchy gastric erythema with bile acid refluxate noted. Biopsies were obtained. Grade 2 flap valve on retroflexed examination of the cardia. The pylorus was dilated with wire guided balloon and increased peristalsis was noted thereafter. Duodenum: Normal bulb and descending duodenum, Intervention: Biopsies as noted above, wire guided balloon dilation Sigmoidoscopy Instrument: Upper endoscope Colonoscopy Monitoring: Vital signs and clinical assessment, continuous EKG monitoring, Pulse oximetry, Carbon Dioxide monitoring and blood pressure monitoring were done throughout the procedure. Procedure: The patient was placed in the left lateral decubitis position and pre-procedure medications were administered. After a digital rectal examination of the ano-rectum, the video colonoscope was inserted into the rectum and advanced through the colon to the transverse colon. The scope was slowly withdrawn in a retrograde panoramic fashion and the colon mucosa was carefully examined including a retroflexed view of the rectum. Findings and interventions are described below. Procedure Difficulty: easy Findings: Transverse Colon -normal Descending Colon:normal Sigmoid Colon: normal Rectum: Retroflexion with small internal hemorrhoids, grade I--From mid rectum a codl snare was used to take a tissue sample for r/o Hirschsprungs.The area was bleeding and x 4 clips applied with hemospray with good effect Anorectum - normal Colon preparation: good Impression and Post Procedure Diagnosis: internal hemorrhoids bile acid reflux gastritis Plan: trial of bile acid binder- welchol US doppler r/o SMA thrombosis await rectal bx Above findings were reviewed with the patient and relevant handouts were provided if indicated.
== END 2023-03-06 14:52 | disposition home or self-care (01) ==
PROVIDERS: PCP Internal Medicine; Visit Provider Internal Medicine Gastroenterology
PROC: 0DJ08ZZ Inspection of Upper Intestinal Tract, Via Natural or Artificial Opening Endoscopic (ICD-10-PCS; CPT 43235; principal; 2023-03-06 14:40)
DX: G89.4 Chronic pain syndrome (principal); K59.04 Chronic idiopathic constipation; K64.0 First degree hemorrhoids; K63.89 Other specified diseases of intestine; K86.1 Other chronic pancreatitis; K86.81 Exocrine pancreatic insufficiency; K31.9 Disease of stomach and duodenum, unspecified; R19.2 Visible peristalsis; E78.70 Disorder of bile acid and cholesterol metabolism, unspecified; K29.50 Unspecified chronic gastritis without bleeding; B96.81 Helicobacter pylori [H. pylori] as the cause of diseases classified elsewhere; K44.9 Diaphragmatic hernia without obstruction or gangrene
CPT/HCPCS: 45338; 43245; 43239; 88305; 88341; 88342; C1726; J2704; J3010

== ENCOUNTER → 2023-03-06 10:58 | Outpatient (BNV) | payer MEDICARE, MEDICAID, SELFPAY | PROVIDERS: PCP Internal Medicine; Visit Provider Internal Medicine Gastroenterology | DX: K59.04 Chronic idiopathic constipation (principal); K29.70 Gastritis, unspecified, without bleeding | CPT/HCPCS: 43239; 43245; 45385 ==

== ENCOUNTER 2023-05-12 09:03 | Outpatient (AMB) | payer MEDICARE, MEDICAID, SELFPAY ==
--- NOTE | 2023-05-12 09:04 | A.OFFVIS_ITS ---
Intake Intake Visit Reasons: s/P EGD; Dr. Latham Intake Note: Kt presents as a video to go over results of last procedures. CC: significant weight gain since procedures. Has had both constipation and diarrhea. E Business Specialist Required: No Allergies No Known Allergies [No Known Allergies*] Allergy (Verified 05/12/23 09:04) HPI s/P EGD; Dr. Latham HPI Details 32 yr old m being called for f/u for chr onic pancreatitis RECAP; Hx of chronic pancreatitis related to alcohol he was c/o general body aches he feels constipated and takes miralax which helps, if not taking will not go to toilet for [address] for years, since even as a young child lots of anxiety has abdominal pain around umbilicus, soreness, can be 10/10 in severity if he passes stool or gas helps reduce pain appetite is fair, trying gluten free diet occ gerd, no dysphagia has joint pains, aches in general, no swollen joints he was on lyrica for pain but was changed to gabapentin He has been alcohol free for long time now CTe abdo-- 09/2019--calcified and atrophic pancreas, mild accentuation of the valvulae conniventes mid to distal jejunum and mid ileum without focal wall thickening He had been following up with pain mx, he had celiac axis blockade with short term benefit, he also failed nerve stimulator Gene testing: neg for SPINK and CFTR, for some reason PRSS was not checked MRI: 12/2021 atrophic pancreas, dilated, irreg PD, possible stricture of panc head but not well visualized MRI 2022 PD 5 mm--irregular sequela of chronic panc noted, no masses EGD/colo: 03/2023 Impression and Post Procedure Diagnosis: internal hemorrhoids bile acid reflux gastritis Plan: trial of bile acid binder- welchol US doppler r/o SMA thrombosis await rectal bx bx: pos h pylori, pos ganglion cells on staining, some rectal congestion INTERIM: he completed course of H pylori treatment, he feels his digestion is improved since procedure he takes linalcotide and MOM for constipation which helps he is worried about weight gain, not as physically depression is not too bad, but 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 constipation, controlled 2. h pylori 3. chronic pancreatitis due to alcohol, stable PLAN: / --h pylori breath test 2/ advised on diet and exercise, can loo k at intermittent fasting, increase exe rcise, [place] >2500 [place] , [place] [address] 3/ offered nutrition consult --declined [facility] Medical History Depression Chronic pain syndrome Anxiety Chronic abdominal pain Chronic pancreatitis Family History Father No problems noted. Mother No problems noted. Maternal Grandmother Pancreatic cancer Social History Household Members: Family and None Alcohol intake: current Alcohol intake frequency: does not drink Patient Tobacco Use Status: Former Tobacco user Tobacco use type: Smokeless Tobacco Substance Use Type: Marijuana Assessment & Plan Assessment & Plan (1) Chronic pancreatitis: Code(s): K86.1 - Other chronic pancreatitis Qualifiers: Pancreatitis type: alcohol induced Qualified Code(s): K86.0 - Alcohol- induced chronic pancreatitis Plan: Assessments 1. constipation, controlled 2. h pylori PLAN: /1 --h pylori breath test 2/ advised on diet and exercise, can look at intermittent fasting, increase exercise, [place] >2500 [place] , [place] [address] 3/ offered nutrition consult --declined Telehealth Telehealth Location of provider rendering services: practice address Location of patient: address on file Patient Identification confirmed using: Name, : Yes Telehealth method: video Patient verbally consented to treatment: Yes Patient verbally consented to billing insurance company: Yes Patient informed of any privacy concerns related to visit: Yes Minutes spent on Phone/Video with Pt.: 11 Coding Level of Care Code Tele Est Pt Level 3 (70767) Diagnoses Alcohol-induced chronic pancreatitis K86.0 Pancreatitis type: alcohol induced
== END 2023-05-12 09:47 | disposition home or self-care (01) ==
LOC: HO.HGI 09:03
PROVIDERS: PCP Internal Medicine; Visit Provider Internal Medicine Gastroenterology
DX: K86.0 Alcohol-induced chronic pancreatitis (principal)
CPT/HCPCS: 99213

== ENCOUNTER → 2023-05-12 09:03 | Outpatient (BNVA) | payer MEDICARE, MEDICAID, SELFPAY | PROVIDERS: PCP Internal Medicine; Visit Provider Internal Medicine Gastroenterology ==

== ENCOUNTER 2023-05-22 08:21 | Outpatient (REF) | payer MEDICARE, MEDICAID, SELFPAY ==
[2023-05-24 14:38] LABS: H Pylori Breath Test Negative (Negative)
== END 2023-05-22 08:22 | disposition home or self-care (01) ==
LOC: HO.LNP 08:21
PROVIDERS: PCP Internal Medicine; Visit Provider Internal Medicine Gastroenterology
DX: Z11.2 Encounter for screening for other bacterial diseases (principal)
CPT/HCPCS: 83013; 99211

== ENCOUNTER 2023-08-06 09:53 | Day surgery (SDC) | payer MEDICARE, MEDICAID, SELFPAY ==
--- NOTE | 2023-08-05 10:10 | P.CONAN_ITS ---
Documented by User: Carlee Beyer NP 08/05/23 10:11 HPI - Anesthesia Eval Consult details Narrative: 32yo M for Upper Endoscopy with pyloric Dilitation s/p EGD 03/2023 with MAC PMFSH Active Problems Active Problems: All Active Problems Weight gain (Acute) Chronic pain syndrome (Acute) Anxiety (Acute) Chronic pancreatitis (Acute) Chronic abdominal pain (Acute) Past Medical History Medical History (Updated 08/06/23 @ 10:53 by Noelle Pearson RN) GERD (gastroesophageal reflux disease) Depression Chronic pain syndrome Anxiety Chronic abdominal pain Chronic pancreatitis Family History Family History Father No problems noted. Mother No problems noted. Maternal Grandmother Pancreatic cancer Family history of problems with anesthesia: No Surgical History Surgical History (Updated 08/06/23 @ 10:53 by Noelle Pearson RN) History of esophagogastroduodenoscopy (EGD) History of Problems with Anesthesia: No Social History Social History Household Members: Family and None Alcohol intake: current Alcohol intake frequency: former alcohol drinker Patient Tobacco Use Status: Current everyday Tobacco user Tobacco use type: Smokeless Tobacco Substance Use Type: Marijuana Meds Allergies Allergy/AdvReac Type Severity Reaction Status Date / Time No Known Allergies Allergy Verified 08/06/23 10:53 [No Known Allergies*] Home Medications ?Medication ?Instructions ?Recorded ?Confirmed ?Last Taken ?Type atomoxetine 18 mg capsule 18 mg PO QAM 12/07/21 03/06/23 03/05/23 History buspirone 15 mg tablet 15 mg PO TID 12/07/21 03/06/23 03/05/23 History clonazepam 1 mg tablet 1 mg PO DAILY PRN anxiety 12/07/21 03/06/23 03/06/23 History tizanidine 4 mg tablet 4 mg PO Q6H PRN Spasms 10/11/22 03/06/23 03/05/23 History mirtazapine 15 mg tablet 15 mg PO BEDTIME 02/10/23 03/06/23 03/05/23 History escitalopram oxalate 20 mg tablet mg PO 05/12/23 Unknown History Assessment and Plan Assessment Anesthesia Assessment: Chart Reviewed Final Anesthetic Review Family History of Problems with Anesthesia: No History of Problems with Anesthesia: No Documented by User: Shabnam Simeon MD 08/06/23 11:32 [facility] Past Medical History Medical History (Updated 08/06/23 @ 10:53 by Noelle Pearson, RN) GERD (gastroesophageal reflux disease) Depression Chronic pain syndrome Anxiety Chronic abdominal pain Chronic pancreatitis Family History Family History Father No problems noted. Mother No problems noted. Maternal Grandmother Pancreatic cancer Surgical History Surgical History (Updated 08/06/23 @ 10:53 by Noelle Pearson RN) History of esophagogastroduodenoscopy (EGD) Social History Social History Household Members: Family and None Alcohol intake: current Alcohol intake frequency: former alcohol drinker Patient Tobacco Use Status: Current everyday Tobacco user Tobacco use type: Smokeless Tobacco Substance Use Type: Marijuana Meds Allergies Allergy/AdvReac Type Severity Reaction Status Date / Time No Known Allergies Allergy Verified 08/06/23 10:53 [No Known Allergies*] Home Medications ?Medication ?Instructions ?Recorded ?Confirmed ?Last Taken ?Type atomoxetine 18 mg capsule 18 mg PO QAM 12/07/21 03/06/23 03/05/23 History buspirone 15 mg tablet 15 mg PO TID 12/07/21 03/06/23 03/05/23 History clonazepam 1 mg tablet 1 mg PO DAILY PRN anxiety 12/07/21 03/06/23 03/06/23 History tizanidine 4 mg tablet 4 mg PO Q6H PRN Spasms 10/11/22 03/06/23 03/05/23 History mirtazapine 15 mg tablet 15 mg PO BEDTIME 02/10/23 03/06/23 03/05/23 History escitalopram oxalate 20 mg tablet mg PO 05/12/23 Unknown History Exam Airway Mallampati Class: II TM Dist: >3cm Neck ROM: Full Heart: rrr Lungs: cta Assessment and Plan Assessment Anesthesia Assessment: Anesthesia Plan Discussed Final Anesthetic Review NPO: Yes ASA Class: III Final Preanesthetic Review: No Changes in Pt Med Stat, Meds/Allgs Chart Reviewed and Consent Obtained/Reviewed Patient Risk: Intermediate Procedure Risk: Intermediate Anesthetic Plan Anesthetic Plan: MAC: Disposition: Standard PACU
[2023-08-06 10:42] VITALS: BMI 30.8
[2023-08-06 10:54] VITALS: BP 113/69; PULSE 66; RESP 15; TEMP 36.7; O2SAT 97
--- NOTE | 2023-08-06 11:09 | PC.NURSE ---
pt states passes out with ivs sometimes. laid flat, o2 2l applied and cool cloth to forehead. iv tolerated well. didn''t pass out but hr down to 33 with average in mid 40's and dizzy. bp 99/44. bolusing ivf. recheck bp 104/67. dizziness subsided and sat up.
[2023-08-06] MEDS: Lactated Ringers 1,000 ML 100 ML IVCONT (11:19)
--- NOTE | 2023-08-06 12:57 | P.HPSUR_ITS ---
Pre-Procedural Eval Section A - 24 Hr Update-Section A only Date of Service: 08/06/23 Section B - Complete if H&P > 30 days Chief Complaint: Alcohol-induced chronic pancreatitis Relevant Family History (Specify if Yes): No Relevant Social History: Other (specify) Present Medications: see Short Stay Collaborative assessment Medical History: Significant History ( GERD (gastroesophageal reflux disease) De pression Chronic pain syndrome Anxiety Chronic abdominal pain Chronic pancreatitis) History of Previous Operations: Relevant previous surgery/procedure and date(s) ( History of esophagogastroduodenoscopy (EGD)) Allergies: Allergies Allergy/AdvReac Type Severity Reaction Status Date / Time No Known Allergies Allergy Verified 08/06/23 10:53 [No Known Allergies*] Review of Systems Sugical H&P ROS: Negative: Constitution, Cardiovascular, Respiratory, Neurological, Psychiatric, Hem-Onc, Allergic/Immunologic, Gastrointestinal, Genitourinary, Musculoskeletal, Integumentary, Endocrine and Eyes/Ears/Nose/Throat Exam Surgical H&P Exam: Normal: HEENT, Normal: Heart, Normal: Lungs, Normal: Extremities, Normal: Abdomen, Normal: Skin and Normal: Neurological Plan Diagnosis/Plan: Unchanged I have reviewed the history and physical and performed a pertinent physical examination on my patient. No changes have occurred unless specified. Time Spent With Patient Time: Total time managing care of this patient today ____ minutes.
--- NOTE | 2023-08-06 13:11 | W.PM.OPN ---
Operative Note Operative Note Date of Service: 08/06/23 Narrative: Procedure Description: EGD Indication: abdominal pain Anesthesia: MAC FLEXIBLE TRANSORAL UPPER GASTROINTESTINAL ENDOSCOPY UPPER ENDOSCOPY Consent: Indications for the procedure and potential complications of bleeding, perforation, reaction to medications and missed diagnosis were discussed with the patient and informed consent was obtained. Instrument: Olympus GIF H 190 J mid size upper endoscope Monitoring: Vital signs and clinical assessment, continuous EKG monitoring, Pulse oximetry, Carbon Dioxide monitoring and blood pressure monitoring were done throughout the procedure. Procedure: The patient was placed in the left lateral decubitis position and pre-procedure medications were administered and a bite block was placed. The endoscope was inserted into the mouth and advanced under direct vision to the third part of duodenum. A careful inspection was made as the upper endoscope was withdrawn including a retroflexed examination of the proximal stomach; Findings and interventions are described below. Findings: Larynx:normal Esophagus: GE junction at 38 cm, diaphragm hiatus at 38 cm, normal mucosa Stomach: patchy erythema and nodularity . Biopsies were obtained. Grade 2 flap valve on retroflexed examination of the cardia. Bile acid reflux noted in stomach Duodenum: Normal bulb and descending duodenum, bx taken Intervention: Biopsies as noted above, Impression/Findings: gastritis bile acid reflux PLAN: can consider trial of urosdiol or welchol and see if helps
[2023-08-06 13:21] VITALS: BP 100/58; PULSE 55; RESP 16; TEMP 36.6; O2SAT 95
[2023-08-06 13:30] VITALS: BP 105/64; PULSE 58; RESP 16; O2SAT 96
[2023-08-06 13:45] VITALS: BP 113/68; PULSE 66; RESP 16; O2SAT 97
[2023-08-06 14:00] VITALS: BP 116/67; PULSE 63; RESP 16; TEMP 36.6; O2SAT 97
[2023-08-06] MEDS: HYDROcodone Bit/Acetam 5/325 TABLET 1 TAB PO (14:19)
== END 2023-08-06 14:54 | disposition home or self-care (01) ==
PROVIDERS: PCP Internal Medicine; Visit Provider Internal Medicine Gastroenterology
PROC: (CPT 43239; principal; 2023-08-06 12:40)
DX: K29.70 Gastritis, unspecified, without bleeding (principal); E78.70 Disorder of bile acid and cholesterol metabolism, unspecified; K86.0 Alcohol-induced chronic pancreatitis
CPT/HCPCS: 43239; 88305; 88313; 88342; J2704

== ENCOUNTER → 2023-08-06 09:53 | Outpatient (BNV) | payer MEDICARE, MEDICAID, SELFPAY | PROVIDERS: PCP Internal Medicine; Visit Provider Internal Medicine Gastroenterology | DX: K29.70 Gastritis, unspecified, without bleeding (principal); K21.9 Gastro-esophageal reflux disease without esophagitis | CPT/HCPCS: 43239 ==

== ENCOUNTER 2023-09-08 08:55 | Outpatient (AMB) | payer MEDICARE, MEDICAID, SELFPAY ==
--- NOTE | 2023-09-08 08:56 | A.OFFVIS_ITS ---
Intake Visit Reasons: 4 month follow up Chronic pancreatitis Intake Note: Kt presents in the office as a 4 month follow up. CC: He states that he was diagnosed with gastroparesis and states that he is having issues with this diagnoses. Product Manager Medical Device Required: No Allergies No Known Allergies [No Known Allergies*] Allergy (Verified 08/06/23 10:53) HPI HPI 4 month follow up Chronic pancreatitis: Details: 33 yr old m being called for f/u for chronic pancreatitis RECAP; Hx of chronic pancreatitis related to alcohol he was c/o general body aches he feels constipated and takes miralax which helps, if not taking will not go to toilet for [address] for years, since even as a young child lots of anxiety has abdominal pain around umbilicus, soreness, can be 10/10 in severity if he passes stool or gas helps reduce pain appetite is fair, trying gluten free diet occ gerd, no dysphagia has joint pains, aches in general, no swollen joints he was on lyrica for pain but was changed to gabapentin He has been alcohol free for long time now CTe abdo-- 09/2019--calcified and atrophic pancreas, mild accentuation of the valvulae conniventes mid to distal jejunum and mid ileum without focal wall thickening He had been following up with pain mx, he had celiac axis blockade with short term benefit, he also failed nerve stimulator Gene testing: neg for SPINK and CFTR, for some reason PRSS was not checked MRI: 12/2021 atrophic pancreas, dilated, irreg PD, possible stricture of panc head but not well visualized MRI 2022 PD 5 mm--irregular sequela of chronic panc noted, no masses EGD/colo: 03/2023 Impression and Post Procedure Diagnosis: internal hemorrhoids bile acid reflux gastritis Plan: trial of bile acid binder- welchol US doppler r/o SMA thrombosis await rectal bx bx: pos h pylori, pos ganglion cells on staining, some rectal congestion H pylori: negative Repeat EGD 08/24 due to ongoing sx: again bile acid noted no h pylori seen INTERIM: he has appointment at [facility] for weight loss assessment he just got the colestipol right now his main complaint is feeling of being weighed down not sure if it is coming from depression not taking his depression meds regularly tried lexipro, having bad constipation --feels linaclotide helps sometimes no suicidal ideation EXAM: relaxed, talking easily not distressed good color low affect Assessments 1. constipation, controlled 2. h pylori --cured 3. 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 depression, possible causing somatic complaints PLAN: / --He will f/u with psychiatry for his lance, encouraged on hobbies, exercise --if no response from psych I would try him citalopram, also he will send me list of meds he has tried before 2/ cont with bile acid binder 3/ advised on low fat diet, exercise, PFSH Medical History GERD (gastroesophageal reflux disease) Depression Chronic pain syndrome Anxiety Chronic abdominal pain Chronic pancreatitis Surgical History History of esophagogastroduodenoscopy (EGD) Family History Father No problems noted. Mother No problems noted. Maternal Grandmother Pancreatic cancer Social History Household Members: Family and None Alcohol intake: current Alcohol intake frequency: former alcohol drinker Patient Tobacco Use Status: Current everyday Tobacco user Tobacco use type: Smokeless Tobacco Substance Use Type: Marijuana Telehealth Telehealth Telehealth Platform: [facility] Location of provider rendering services: practice address Location of patient: address on file Patient Identification confirmed using: Name, : Yes Telehealth method: video Patient verbally consented to treatment: Yes Patient verbally consented to billing insurance company: Yes Patient informed of any privacy concerns related to visit: Yes Minutes spent on Phone/Video with Pt.: 15 Assessment & Plan Assessment & Plan (1) Anxiety: Code(s): F41.9 - Anxiety disorder, unspecified Category: Medical Plan: see above Coding Level of Care Code Tele Est Pt Level 3 (29070) Diagnoses Anxiety F41.9
== END 2023-09-08 10:01 | disposition home or self-care (01) ==
LOC: HO.HGI 08:56
PROVIDERS: PCP Internal Medicine; Visit Provider Internal Medicine Gastroenterology
DX: K86.1 Other chronic pancreatitis (principal); F41.9 Anxiety disorder, unspecified
CPT/HCPCS: 99213

== ENCOUNTER → 2023-09-08 08:55 | Outpatient (BNVA) | payer MEDICARE, MEDICAID, SELFPAY | PROVIDERS: PCP Internal Medicine; Visit Provider Internal Medicine Gastroenterology ==

== ENCOUNTER 2024-01-12 08:14 | Outpatient (AMB) | payer MEDICARE, MEDICAID, SELFPAY ==
--- NOTE | 2024-01-12 08:15 | A.OFFVIS_ITS ---
Intake Visit Reasons: 4 month follow up Chronic pancreatitis Intake Note: Kt's mom and dad are presenting on his behalf today per patient. He wants Dr Latham and Parents to be on the same page as he has severe anxiety. Lauren Ibrahim [phone] Supply Technician Required: No Allergies No Known Allergies [No Known Allergies*] Allergy (Verified 01/12/24 08:16) HPI HPI 4 month follow up Chronic pancreatitis: Details: 33 yr old m being called for f/u for chronic pancreatitis RECAP; Hx of chronic pancreatitis related to alcohol he was c/o general body aches he feels constipated and takes miralax which helps, if not taking will not go to toilet for [address] for years, since even as a young child lots of anxiety has abdominal pain around umbilicus, soreness, can be 10/10 in severity if he passes stool or gas helps reduce pain appetite is fair, trying gluten free diet occ gerd, no dysphagia has joint pains, aches in general, no swollen joints he was on lyrica for pain but was changed to gabapentin He has been alcohol free for long time now CTe abdo-- 09/2019--calcified and atrophic pancreas, mild accentuation of the valvulae conniventes mid to distal jejunum and mid ileum without focal wall thickening He had been following up with pain mx, he had celiac axis blockade with short term benefit, he also failed nerve stimulator Gene testing: neg for SPINK and CFTR, for some reason PRSS was not checked MRI: 12/2021 atrophic pancreas, dilated, irreg PD, possible stricture of panc head but not well visualized MRI 2022 PD 5 mm--irregular sequela of chronic panc noted, no masses EGD/colo: 03/2023 Impression and Post Procedure Diagnosis: internal hemorrhoids bile acid reflux gastritis Plan: trial of bile acid binder- welchol US doppler r/o SMA thrombosis await rectal bx bx: pos h pylori, pos ganglion cells on staining, some rectal congestion H pylori: negative Repeat EGD 08/24 due to ongoing sx: again bile acid noted no h pylori seen INTERIM: He was admitted to [facility] for 4 d for gastroparesis and apparently he had sepsis he received ABX he feels came on after orgaine supplement, he did have diarrhea he feels better now anxiety is better he feels trental is feeling he has chronic pain from the pancreatitis, EXAM: relaxed, talking easily not distressed good color Assessments 1. gastroparesis 2. h pylori --cured 3. 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 depression, possible causing somatic complaints--seems better PLAN: /1 -- Will increase reglan to 10 mg BID, 2/ can consider motegrity, he has controlled depression, no SI 3/ refilled on trental PFSH Medical History GERD (gastroesophageal reflux disease) Depression Chronic pain syndrome Anxiety Chronic abdominal pain Chronic pancreatitis Surgical History History of esophagogastroduodenoscopy (EGD) Family History Father No problems noted. Mother No problems noted. Maternal Grandmother Pancreatic cancer Social History Household Members: Family and None Alcohol intake: current Alcohol intake frequency: former alcohol drinker Patient Tobacco Use Status: Current everyday Tobacco user Tobacco use type: Smokeless Tobacco Substance Use Type: Marijuana Telehealth Telehealth Telehealth Platform: [employer] Location of provider rendering services: practice address Location of patient: address on file Patient Identification confirmed using: Name, : Yes Telehealth method: video Patient verbally consented to treatment: Yes Patient verbally consented to billing insurance company: Yes Patient informed of any privacy concerns related to visit: Yes Assessment & Plan Assessment & Plan (1) Chronic pain syndrome: Code(s): G89.4 - Chronic pain syndrome Category: Medical Plan: see above (2) Chronic pancreatitis: Code(s): K86.1 - Other chronic pancreatitis Category: Medical Qualifiers: Pancreatitis type: alcohol induced Qualified Code(s): K86.0 - Alcohol- induced chronic pancreatitis Plan: see above Medications: New pentoxifylline ER administer with meals 400 mg PO TID 90 tabs 2RF Refilled metoclopramide HCl 5 mg PO TID 30 days PRN 90 tabs 1RF nausea and vomiting Coding Level of Care Code Tele Est Pt Level 3 (85166) Diagnoses Chronic pain syndrome G89.4 Alcohol-induced chronic pancreatitis K86.0 Pancreatitis type: alcohol induced
== END 2024-01-12 10:31 | disposition home or self-care (01) ==
LOC: HO.HGI 08:14
PROVIDERS: PCP Internal Medicine; Visit Provider Internal Medicine Gastroenterology
DX: K86.0 Alcohol-induced chronic pancreatitis (principal); G89.4 Chronic pain syndrome
CPT/HCPCS: 99213

== ENCOUNTER → 2024-01-12 08:14 | Outpatient (BNVA) | payer MEDICARE, MEDICAID, SELFPAY | PROVIDERS: PCP Internal Medicine; Visit Provider Internal Medicine Gastroenterology ==

== ENCOUNTER 2024-02-20 09:48 | Outpatient (AMB) | payer MEDICARE, MEDICAID, SELFPAY ==
--- NOTE | 2024-02-20 09:49 | A.OFFVIS_ITS ---
Intake Visit Reasons: abdominal pains Intake Note: Patient follow up for abdominal pain Patient cc: constipation, nauseas and abdominal pain. Denies any other GI issues. Gasoline Service Attendant Required: No Allergies No Known Allergies [No Known Allergies*] Allergy (Verified 02/20/24 09:49) HPI HPI abdominal pains: Details: 33 yr old m being called for f/u for chronic pancreatitis RECAP; Hx of chronic pancreatitis related to alcohol he was c/o general body aches he feels constipated and takes miralax which helps, if not taking will not go to toilet for [address] for years, since even as a young child lots of anxiety has abdominal pain around umbilicus, soreness, can be 10/10 in severity if he passes stool or gas helps reduce pain appetite is fair, trying gluten free diet occ gerd, no dysphagia has joint pains, aches in general, no swollen joints he was on lyrica for pain but was changed to gabapentin He has been alcohol free for long time now CTe abdo-- 09/2019--calcified and atrophic pancreas, mild accentuation of the valvulae conniventes mid to distal jejunum and mid ileum without focal wall thickening He had been following up with pain mx, he had celiac axis blockade with short term benefit, he also failed nerve stimulator Gene testing: neg for SPINK and CFTR, for some reason PRSS was not checked MRI: 12/2021 atrophic pancreas, dilated, irreg PD, possible stricture of panc head but not well visualized MRI 2022 PD 5 mm--irregular sequela of chronic panc noted, no masses EGD/colo: 03/2023 Impression and Post Procedure Diagnosis: internal hemorrhoids bile acid reflux gastritis Plan: trial of bile acid binder- welchol US doppler r/o SMA thrombosis await rectal bx bx: pos h pylori, pos ganglion cells on staining, some rectal congestion H pylori: negative Repeat EGD 08/24 due to ongoing sx: again bile acid noted no h pylori seen INTERIM: he has noted his bowel motions are more full he is taking linaclotide he has discomfort some times, can flare up sometimes he conts with trental and feels it helps his sx he never got call from [facility] depression is better EXAM: relaxed, talking easily not distressed good color Assessments 1. gastroparesis 2. h pylori --cured 3. 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 depression, possible causing somatic complaints--seems better PLAN: /1 add azithromycin prn for gastroparesis flare 2/ tamia [facility] referral [facility] Medical History GERD (gastroesophageal reflux disease) Depression Chronic pain syndrome Anxiety Chronic abdominal pain Chronic pancreatitis Surgical History History of esophagogastroduodenoscopy (EGD) Family History Father No problems noted. Mother No problems noted. Maternal Grandmother Pancreatic cancer Social History Household Members: Family and None Alcohol intake: current Alcohol intake frequency: former alcohol drinker Patient Tobacco Use Status: Current everyday Tobacco user Tobacco use type: Smokeless Tobacco Substance Use Type: Marijuana Telehealth Telehealth Telehealth Platform: [employer] Location of provider rendering services: practice address Location of patient: address on file Patient Identification confirmed using: Name, : Yes Telehealth method: video Patient verbally consented to treatment: Yes Patient verbally consented to billing insurance company: Yes Patient informed of any privacy concerns related to visit: Yes Minutes spent on Phone/Video with Pt.: 10 Assessment & Plan Assessment & Plan (1) Chronic pancreatitis: Code(s): K86.1 - Other chronic pancreatitis Category: Medical Qualifiers: Pancreatitis type: alcohol induced Qualified Code(s): K86.0 - Alcohol- induced chronic pancreatitis Plan see above Medications: New azithromycin for gastroparesis take for no more than 3 d prn 500 mg PO .prn 14 days 9 tabs 0RF Coding Level of Care Code Tele Est Pt Level 3 (52526) Diagnoses Alcohol-induced chronic pancreatitis K86.0 Pancreatitis type: alcohol induced
== END 2024-02-20 10:57 | disposition home or self-care (01) ==
LOC: HO.HGI 09:48
PROVIDERS: PCP Internal Medicine; Visit Provider Internal Medicine Gastroenterology
DX: K86.0 Alcohol-induced chronic pancreatitis (principal)
CPT/HCPCS: 99213

== ENCOUNTER 2024-06-28 09:40 | Outpatient (AMB) | payer MEDICARE, MEDICAID, SELFPAY ==
--- NOTE | 2024-06-28 09:42 | A.OFFVIS_ITS ---
Intake Visit Reasons: ED follow up Intake Note: Kt presents as a telehealth today. CC: States that he was seen in the ED at [facility] but unfortunately I am unable to get records at the moment. 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 he was c/o general body aches he feels constipated and takes miralax which helps, if not taking will not go to toilet for [address] for years, since even as a young child lots of anxiety has abdominal pain around umbilicus, soreness, can be 10/10 in severity if he passes stool or gas helps reduce pain appetite is fair, trying gluten free diet occ gerd, no dysphagia has joint pains, aches in general, no swollen joints he was on lyrica for pain but was changed to gabapentin He has been alcohol free for long time now CTe abdo-- 09/2019--calcified and atrophic pancreas, mild accentuation of the valvulae conniventes mid to distal jejunum and mid ileum without focal wall thickening He had been following up with pain mx, he had celiac axis blockade with short term benefit, he also failed nerve stimulator Gene testing: neg for SPINK and CFTR, for some reason PRSS was not checked MRI: 12/2021 atrophic pancreas, dilated, irreg PD, possible stricture of panc head but not well visualized MRI 2022 PD 5 mm--irregular sequela of chronic panc noted, no masses EGD/colo: 03/2023 Impression and Post Procedure Diagnosis: internal hemorrhoids bile acid reflux gastritis Plan: trial of bile acid binder- welchol US doppler r/o SMA thrombosis await rectal bx bx: pos h pylori, pos ganglion cells on staining, some rectal congestion H pylori: negative Repeat EGD 08/24 due to ongoing sx: again bile acid noted no h pylori seen INTERIM: he has had 3 attendances at ED for vomiting, fast HR and swollen legs he went to [facility] he had various tests, but nothing definitive per his report he was suggested to stop zofran ? Qtc prolongation he feels back to normal apart from mild ankle swelling he is still taking trental and linszess EXAM: relaxed, talking easily not distressed good color Assessments 1. gastroparesis 2. h pylori --cured 3. 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 depression, possible causing somatic complaints--seems better PLAN: /1 - low dose celebrex for 1 weeks for resdiual abdominal discomfort 2/ [facility] referral --still not heard 3/ rechekc ECG and get notes from [facility] 4/ [facility]rental [facility]ins[facility] Medical History GERD (gastroesophageal reflux disease) Depression Chronic pain syndrome Anxiety Chronic abdominal pain Chronic pancreatitis Surgical History History of esophagogastroduodenoscopy (EGD) Family History Father No problems noted. Mother No problems noted. Maternal Grandmother Pancreatic cancer Social History Household Members: Family and None Alcohol intake: current Alcohol intake frequency: former alcohol drinker Patient Tobacco Use Status: Current everyday Tobacco user Tobacco use type: Smokeless Tobacco Substance Use Type: Marijuana Telehealth Telehealth Telehealth Platform: [employer] Location of provider rendering services: practice address Location of patient: address on file Patient Identification confirmed using: Name, : Yes Telehealth method: video Patient verbally consented to treatment: Yes Patient verbally consented to billing insurance company: Yes Patient informed of any privacy concerns related to visit: Yes Minutes spent on Phone/Video with Pt.: 16 Assessment & Plan Assessment & Plan (1) Chronic pancreatitis: Code(s): K86.1 - Other chronic pancreatitis Category: Medical Qualifiers: Pancreatitis type: alcohol induced Qualified Code(s): K86.0 - Alcohol- induced chronic pancreatitis Plan: as above Orders: Orders ECG 12 lead EKG Today K86.0 - Alcohol-induced chronic pancreatitis Medications: New prochlorperazine maleate 5 mg (1/2 x 10 mg) PO DAILY PRN 30 tabs 1RF nausea and vomiting celecoxib (Celebrex) 100 mg PO BID 14 caps 0RF Refilled linaclotide (Linzess) 290 mcg PO QAM 30 caps 4RF pentoxifylline ER administer with meals 400 mg PO TID 90 tabs 2RF Discontinued lactulose Discontinued Reason: Doctor's Order 30 mL PO BID 946 mL 2RF peg-electrolyte soln 420 gram until fecal effluent is clear; do not exceed a total volume of 2,000 mL Discontinued Reason: No Longer Medically Relevant 240 mL PO Q10M 4,000 mL 0RF Coding Level of Care Code Tele Est Pt Level 4 (76375) Diagnoses Alcohol-induced chronic pancreatitis K86.0 Pancreatitis type: alcohol induced
--- OUTSIDE RECORDS SUMMARY | 2024-06-28 10:48 | XMS_ITS | Encounter Summary ---
Author Organization [facility] Address [address] [place] [address] Care Team Providers Care Route Relief Driver Name Role Phone Josh Velez Primary Care Provider [phone] Reason for Visit * Reason Comments Lower Extremity Issue WAS SEEN HERE 06/14 , 06/15 FOR PANCREATITIS AND NOW MY LOWER EXTREMITIES ARE SWELLING, LEFT > RIGHT Encounter Details Date Type Department Care Team (Late st Contact Info) Description 06/23/2024 10:13 PM EDT - 06/24/2024 2:49 AM EDT Emergency [facility] Emergency [address] [place] [address] Bilateral lower extremity edema (Primary Dx) Discharge Disposition: Home or Self Care Social History Tobacco Use Types Packs/Day Years Used Date Smoking Tobacco: Some Days Smokeless Tobacco: Never Comments:Current vape use wi th nicotine cartridges Alcohol Use Standard Drinks/Week Comments Not Currently 0 (1 standard drink = 0.6 oz pur e alcohol) Sober since 2018 Housing Instability Answer Date Recorde d Are you worried that in the next 2 months you may not have stable housing? Patient declined 06/06/2024 Food Access & Nutrition Answer Date Rec orded Do you have access to a vari ety of food including fruits and vegetables? Patient declined 06/06/2024 Health Literacy Answer Date Recorded How often do you need to hav e someone help you when you read instructions, pamphlets, or other written material from your doctor or pharmacy? Patient declined 06/06/2024 Caregiver: How often do you need to have someone help you when you read instructions, pamphlets, or other written material from your doctor or pharmacy? Not on file 025 Financial Risk Answer Date Recorded How hard is it for you to pa y for the very basics like food, housing, medical care, and air conditioning / heating? Patient declined 06/06/2024 Transportation Answer Date Recorded Has the lack of transportati on kept you from meetings, work, or from getting things needed for daily living? Patient declined 06/06/2024 Has the lack of transportati on kept you from medical appointments or from getting medications? Patient declined 06/06/2024 Social Isolation Answer Date Recorded How often do you feel lonely or isolated from those around you? Patient declined 06/06/2024 Food Risk Answer Date Recorded Within the past 12 months we worried whether our food would run out before we got money to buy more. Patient declined 025 Within the past 12 months th e food we bought just didn't last and we didn't have money to get more. Patient declined 08/2024 Dependent Care Answer Date Recorded Do you need help finding or paying for care for your loved ones. For example, early childhood coordinator or elderly care for an older adult? Patient declined 06/06/2024 Education Answer Date Recorded Do you think completing more education or training, like finishing a GED, going to college, or learning a trade, would be helpful for you? Patient declined 06/06/2024 Employment and Income Answer Date Recor ded During the last four weeks, have you been actively looking for work? Patient declined 06/06/2024 Living Situation Answer Date Recorded What is your living situation? 0 06/06/2024 Interpersonal Safety Answer Date Record ed Physical Abuse 06/14/2024 Verbal Abuse 06/14/2024 Sex and Gender Information Value Date Recorded Sex Assigned at Male 06/09/2024 3:18 AM EDT Legal Sex Male 6:17 PM EDT Gender Identity Male 06/09/2024 3:18 AM EDT Sexual Orientation Choose not to disclose 2024 8:13 PM EDT Sexual Orientation Straight 06/13/2024 8: 13 PM EDT documented as of this encounter Last Filed Vital Signs Vital Sign Reading Time Taken Comments Blood Pressure 146/89 06/24/2024 12:03 AM EDT Pulse 105 06/24/2024 12:03 AM EDT Temperature 36.7 ??C (98.1 ??F) 06/24/2024 12:03 AM E DT Respiratory Rate 19 06/24/2024 12:03 AM EDT Oxygen Saturation 100% 06/24/2024 12:03 AM EDT Inhaled Oxygen Concentration - - Weight 81.6 kg (180 lb) 06/23/2024 7:20 PM EDT Height 177.8 cm (5' 10 ) 06/23/2024 7:20 PM EDT Body Mass Index 25.83 06/23/2024 7:20 PM EDT documented in this encounter Functional Status * Are you deaf or do you have serious difficulty hearing? Answer Date of Assessment Author No 06/24/2024 1:04 AM EDT Yesenia Garza RN * Are you blind or do you have serious difficulty seeing, even when wearing glasses? Answer Date of Assessment Author No 06/24/2024 1:04 AM EDT Yesenia Garza RN * Do you have serious difficulty walking or climbing stairs? Answer Date of Assessment Author No 06/24/2024 1:04 AM EDT Yesenia Garza RN * Do you have serious difficulty dressing or bathing? Answer Date of Assessment Author No 06/24/2024 1:04 AM EDT Yesenia Garza RN * Because of a physical, mental, or emotional condition, do you have serious difficulty doing errandsalone such as visiting the doctor? Answer Date of Assessment Author No 06/24/2024 1:04 AM EDT Yesenia Garza RN documented as of this encounter Mental Status * Because of a physical, mental, or emotional condition, do you have serious difficulty concentrating, remembering, or making decisions? (5 years old or older) Answer Entry Date Author No 06/24/2024 1:04 AM EDT Yesenia Garza RN documented in this encounter Discharge Instructions * Discharge Instructions* DAVE Sparks - 06/24/2024 2:03 AM EDT Your physical exam was reassuring. Blood work did not show any concerning findings. EKG and cardiac enzymes (troponin levels) were normal. This does not appear to be related to your heart. I did not see any concerning findings on your chest x- ray either. The radiologist will review these images in the morning, and if they disagree with my assessment, someone from the hospital will call you with those results. Take Lasix once daily for the next 5 days. This is a water pill that will make you urinate more often. Also recommend decreasing your fluid intake, it is possible that your liquid diet is causingfluid retention. Wear compression stockings as prescribed. Follow-up with your primary care provider regarding your symptoms and your visit with us today. Continue all previously-prescribed medications. Return to the ER with any new or worsening symptoms, specifically worsening swelling, chest pain, shortness of breath, or coughing at night, or if you have any other signs or symptoms that are concerning to you. * Attachments The following attachments cannot be sent through Care Everywhere. * Edema: Leg and Ankle (Telugu) documented in this encounter Medications at Time of Discharge busPIRone (BUSPAR) 15 mg tablet Take 1 tablet (15 mg total) by mouth 3 (three) times a day. celecoxib (CeleBREX) 200 mg capsule Take 1 capsule (200 mg total) by mouth 2 (two) times a day. clonazePAM (KlonoPIN) 1 mg tablet Take 1 mg by mouth 2 times daily as needed. doxepin (SINEquan) 10 mg capsule Take 3 capsules (30 mg total) by mouth at bedtime. 06/08/2024 furosemide (LASIX) 20 mg tablet Take 1 tablet (20 mg total) by mouth 1 (one) time each day for 5 days. 5 each 06/24/2024 hyoscyamine (ANASPAZ,LEVSIN) 0.125 mg tablet Take 1 tablet (0.125 mg total) by mouth every 6 (six) hours if needed for cramping. linaCLOtide (LINZESS) 290 mcg capsule Take 1 capsule (290 mcg total) by mouth 1 (one) time each day. methadone (DOLOPHINE) 10 mg tabletIndications :opioid use disorder Take 10.5 tablets (105 mg total) by mouth 1 (one) time each day at the same time. VERIFIED WITH [facility] [address], LAST DOSED / naloxone (NARCAN) 4 mg/0.1 mL nasal sprayIndications: opioid overdose,opioid-i nduced respiratory depression Administer 1 each (4 mg total) into affected nostril(s) if needed for opioid reversal or respiratory depression. Give 4 mg (1 spray) into one nostril. May repeat every 2-3 minutes if needed, alternating nostrils, until medical assistance becomes available. 2 each 06/07/2024 6 ondansetron (ZOFRAN) 4 mg tablet Take 1 tablet (4 mg total) by mouth every 8 (eight) hours if needed for nausea or vomiting. pancrelipase, Vjc-Smao-Uacw, (CREON) 12,000-38,000 -60,000 unit capsule Take 3 Caps by mouth 3 times daily. polyethylene glycol (MIRALAX) 17 gram packet Take 17 g by mouth 1 (one) time each day if needed for constipation. 30 packet 06/07/2024 prochlorperazine (COMPAZINE) 10 mg tablet Take 1 tablet (10 mg total) by mouth 3 (three) times a day if needed for nausea. 20 tablet 06/14/2024 5 tiZANidine (ZANAFLEX) 4 mg capsule Take 2 capsules (8 mg total) by mouth every 6 (six) hours if needed for muscle spasms. vilazodone (VIIBRYD) 20 mg tablet Take 1 tablet (20 mg total) by mouth 1 (one) time each day. documented as of this encounter Ordered Prescriptions Prescription Sig Dispense Quantity Refills Last Filled Start Date End Date furosemide (LASIX) 20 mg tablet Take 1 tablet (20 mg total) by mouth 1 (one) time each day for 5 days. 5 each 06/24/2024 06/29/2024 documented in this encounter Discharge Disposition Disposition Code Departure Means Destination Comment s Home or Self Care documented in this encounter Progress Notes * Keven Holguin RN - 06/23/2024 7:19 PM EDT Pt states he has issues with swollen legs. States left leg is more swollen than right. Attempted tosee PCP about the issue and was told to come to the ED. * DAVE Sparks - 06/23/2024 6:48 PM EDT [facility] Emergency Department Encounter Note Patient Name: Kt Ibrahim Initial Evaluation: 06/23/2024 : 1990 Patient's PCP: Josh Velez DO Emergency Physician: DAVE Lopez History of Present Illness Chief Complaint: Chief Complaint Patient presents with Lower Extremity Issue WAS SEEN HERE 06/14, 06/15 FOR PANCREATITIS AND NOW MY LOWER EXTREMITIES ARE SWELLING, LEFT > RIGHT HPI: Kt is a pleasant 33-year-old male with documented history of chronic pancreatitis, gastroparesis, chronic opioid dependence maintained on methadone, history of EtOH abuse-sober since 2019, anxiety/depression; presents for evaluation of bilateral lower extremity edema. Reports this to be intermittent nature over the last 1.5 weeks now. Somewhat improved in the machine spring former hours, progressive with any standing or ambulation. He has been wearing tight socks as well as compression stockings to help alleviate some of the swelling with moderate relief. He denies any associated dyspnea or chest pains. Denies any paroxysmal nocturnal dyspnea. He states that the symptoms are isolated to his feet. Denies any trauma or skin changes. No associated fevers or chills. He does report being on a liquid diet . Review of EMR shows that he was admitted on 06/13/2024 with presenting complaints of abdominal pain,nausea/vomiting and lower extremity edema. He was found to have elevated (though downtrending) troponins and admitted for cardiac monitoring. CTA showed no aneurysm or PE. LLE ultrasound negative forDVT. TTE on 06/14/2024 showed normal left ventricular size with EF ranging between 60-65%, no regional LV wall motion abnormalities noted. He did not have any chest pain or dyspnea at the time of that admission. Patient ultimately left AMA. ROS: I have performed a ROS with the pertinent positives and negatives documented in the history ofpresent illness. Previous History Past Medical History: Diagnosis Date Anxiety Chronic alcoholic pancreatitis (CMS/HCC V24, CMS/HCC V28) Depression DX:Depression Gastroparesis History of alcohol abuse Reports Sobriety since 2019 Opioid abuse ([facility] V24, [facility] V28) On methadone / with use of nasal fentanyl Pancreatitis Chronic Pancreatitis Prolonged Q-T interval on ECG Past Surgical History: Procedure Laterality Date OTHER SURGICAL HISTORY PROCEDURE: DENIES PREVIOUS SURGERY Social History Tobacco Use Smoking status: Some Days Smokeless tobacco: Never Tobacco comments: Current vape use with nicotine cartridges Vaping Use Vaping status: Some Days Substance Use Topics Alcohol use: Not Currently Comment: Sober since 2019 Drug use: Yes Types: Fentanyl Comment: Nasal using 200 bags per day Family History Problem Relation Name Age of Onset Hypertension Other Father's Side Diabetes Other Father's Side Pancreatitis Other Mother's side has No Known Allergies. No current facility-administered medications on file prior to encounter. Current Outpatient Medications on File Prior to Encounter Medication Sig Dispense Refill busPIRone (BUSPAR) 15 mg tablet Take 1 tablet (15 mg total) by mouth 3 (three) times a day. celecoxib (CeleBREX) 200 mg capsule Take 1 capsule (200 mg total) by mouth 2 (two) times a day. clonazePAM (KlonoPIN) 1 mg tablet Take 1 mg by mouth 2 times daily as needed. doxepin (SINEquan) 10 mg capsule Take 3 capsules (30 mg total) by mouth at bedtime. hyoscyamine (ANASPAZ,LEVSIN) 0.125 mg tablet Take 1 tablet (0.125 mg total) by mouth every 6 (six) hours if needed for cramping. linaCLOtide (LINZESS) 290 mcg capsule Take 1 capsule (290 mcg total) by mouth 1 (one) time each day. methadone (DOLOPHINE) 10 mg tablet Take 10.5 tablets (105 mg total) by mouth 1 (one) time each day at the same time. VERIFIED WITH [facility] [address], LAST DOSED / naloxone (NARCAN) 4 mg/0.1 mL nasal spray Administer 1 each (4 mg total) into affected nostril(s) if needed for opioid reversal or respiratory depression. Give 4 mg (1 spray) into one nostril. May repeat every 2-3 minutes if needed, alternating nostrils, until medical assistance becomes available. 2 each 11 ondansetron (ZOFRAN) 4 mg tablet Take 1 tablet (4 mg total) by mouth every 8 (eight) hours if needed for nausea or vomiting. pancrelipase, Zcx-Ofat-Gaug, (CREON) 12,000-38,000 -60,000 unit capsule Take 3 Caps by mouth 3 times daily. polyethylene glycol (MIRALAX) 17 gram packet Take 17 g by mouth 1 (one) time each day if needed forconstipation. 30 packet 0 prochlorperazine (COMPAZINE) 10 mg tablet Take 1 tablet (10 mg total) by mouth 3 (three) times a day if needed for nausea. 20 tablet 0 tiZANidine (ZANAFLEX) 4 mg capsule Take 2 capsules (8 mg total) by mouth every 6 (six) hours if needed for muscle spasms. vilazodone (VIIBRYD) 20 mg tablet Take 1 tablet (20 mg total) by mouth 1 (one) time each day. Physical Exam ED Triage Vitals Temp Heart Rate Resp BP 06/23/24191906/23/24191906/23/24191906/23/241919 36.9 ??C (98.4 ??F) (!) 114 18 (!) 130/99 SpO2 Temp Source Heart Rate Source Patient Position 06/23/24191906/23/24191906/23/24191906/23/241919 99 % Oral Monitor Sitting BP Location FiO2 (%) 06/24/24 0003 -- Left arm GENERAL: Non-toxic appearing, no acute distress. SKIN: [place], warm, dry. HEENT: Normocephalic, atraumatic. EOMI. NECK: Supple, full ROM. CARDIOVASCULAR: 1+ pitting edema of the bilateral feet up to the level of the ankles. RRR, no MRG. PULMONARY: Breathing adequately on room air. CTAB. ABDOMINAL: Nontender throughout. Nondistended. No active GI upset. MUSCULOSKELETAL: Nonpainful and purposeful movements of all extremities bilaterally, equal strengthbilaterally NEURO: AOx3 PSYCHIATRIC: Normal affect, fluid speech, good eye contact and appropriate demeanor. Results Labs Reviewed CBC WITH AUTO DIFFERENTIAL - Abnormal Result Value WBC 9.2 RBC 4.40 (*) Hemoglobin 12.5 (*) Hematocrit 39.2 (*) MCV 89.7 MCH 28.6 MCHC 31.9 (*) RDW 15.3 (*) Platelets 277 MPV 12.4 (*) NRBC 0.0 NRBC Absolute 0.00 Neutrophils Relative 62.2 Lymphocytes Relative 28.1 Monocytes Relative 9.0 Eosinophils Relative 0.1 Basophils Relative 0.4 Immature Granulocytes Relative 0.2 Neutrophils Absolute 5.69 Lymphocytes Absolute 2.57 Monocytes Absolute 0.82 Eosinophils Absolute 0.01 Basophils Absolute 0.04 Immature Granulocytes Absolute 0.02 COMPREHENSIVE METABOLIC PANEL - Abnormal Sodium 143 Potassium 4.0 Chloride 109 CO2 26 Anion Gap 8 Glucose 117 (*) BUN 23 Creatinine 1.07 eGFR 93 BUN/Creatinine Ratio 21.5 Calcium 9.3 AST (SGOT) 49 (*) ALT (SGPT) 32 Alkaline Phosphatase 73 Total Protein 7.6 Albumin 3.9 Total Bilirubin 0.4 B-TYPE NATRIURETIC PEPTIDE - Normal BNP 29 MAGNESIUM - Normal Magnesium 2.0 TROPONIN I HIGH SENSITIVITY - Normal High Sensitivity Troponin I 14 Narrative: High levels of biotin in samples may falsely decrease hsTroponin values. Use caution when interpreting hsTroponin results in patients taking biotin who exhibit renal impairment (eGFR <60) or in patients taking more than 20 mg/day of biotin. TROPONIN I HIGH SENSITIVITY - Normal High Sensitivity Troponin I 12 Narrative: High levels of biotin in samples may falsely decrease hsTroponin values. Use caution when interpreting hsTroponin results in patients taking biotin who exhibit renal impairment (eGFR <60) or in patients taking more than 20 mg/day of biotin. CBC AND DIFFERENTIAL Narrative: The following orders were created for panel order CBC and differential. Procedure Abnormality Status --------- ------ CBC auto differential[[id number]] Abnormal Final result Please view results for these tests on the individual orders. Abnormal Labs Reviewed CBC WITH AUTO DIFFERENTIAL - Abnormal; Notable for the following components: Result Value RBC 4.40 (*) Hemoglobin 12.5 (*) Hematocrit 39.2 (*) MCHC 31.9 (*) RDW 15.3 (*) MPV 12.4 (*) All other components within normal limits COMPREHENSIVE METABOLIC PANEL - Abnormal; Notable for the following components: Glucose 117 (*) AST (SGOT) 49 (*) All other components within normal limits XR Chest 2 Views (Results Pending) I have discussed the incidental/abnormal imaging and/or lab abnormalities with the patient and haveinstructed them the need for further evaluation and workup with their primary care doctor. I have provided the patient with a paper copy of the abnormality. The laboratory results, imaging results and other diagnostic exam results were reviewed in the EMR. Differential Diagnosis Venous insufficiency Dependent edema CHF Liver failure Cellulitis-no evidence of DVT-doubt ? Medical Decision Making On initial assessment he is nontoxic-appearing, no acute distress, tachycardic to 114 otherwise hemodynamically stable and afebrile. Apart from a mild degree of bilateral lower extremity pitting edema, reassuring examination. He does not appear to be overtly fluid overloaded as he has no rales or JVD, or history of CHF as per recent echocardiogram. I am also reassured by the fact that he has no symptoms of chest pain or dyspnea. No skin changes in the form of erythema or heat to suggest underlying cellulitis, also less likely considering bilateral nature. He had a negative DVT study of the LLE with last admission, he has no significant signs or symptoms of DVT. No indication to repeat ultrasonography here today. That being said, with his elevated troponins on last admission, cardiac workup ensued. Labs showed no leukocytosis or significant anemia. No gross electrolyte abnormalities. BNP and troponins WNL. CXR does not appear to be significantly fluid overloaded or with any acute process by my independent assessment. On reassessment he remains grossly without complaint, resting comfortably. Advised to continue withcompression stockings. Will put him on a short course of Lasix. Advised to decrease his p.o. fluid intake. Medically and hemodynamically stable, safe for discharge. Discussed this plan with the patient who is agreeable. Red flag symptoms and return precautions discussed, all questions asked and answered, plan for discharge with outpatient follow-up. *All documented times are approximate and may not reflect exact time of care rendered or intervention.* Clinical Impressions as of 06/24/24 0246 Bilateral lower extremity edema Medications furosemide (LASIX) tablet 20 mg (20 mg oral Given 06/24/24 0110) ketorolac (TORADOL) injection 15 mg (15 mg intravenous Given 06/24/24 0154) ondansetron (PF) (ZOFRAN) injection 4 mg (4 mg intravenous Given 06/24/24 0209) Procedures Procedures Diagnosis 1. Bilateral lower extremity edema Disposition Discharge ED Prescriptions Medication Sig Dispense Start Date End Date Auth. Provider furosemide (LASIX) 20 mg tablet Take 1 tablet (20 mg total) by mouth 1 (one) time each day for 5 days. 5 each 06/24/2024 06/29/2024 DAVE Sparks Physician Attestation Electronically signed by DAVE Lopez PA 06/24/24 0050 DAVE Sparks 06/24/24 0246 DAVE Sparks 06/24/24 0246 Cosigned by Lorelei Cornejo MD at 06/25/2024 6:19 AM EDT documented in this encounter Plan of Treatment Not on file documented as of this encounter Procedures Procedure Name Priority Date/Time Associated Diagnosis Comments ECG ANNOTATED 06/25/2024 TROPONIN I HIGH SENSITIVITY STAT 06/24/2024 12:26 AM EDT XR CHEST 2 VIEWS STAT 06/23/2024 11:5 6 PM EDT TROPONIN I HIGH SENSITIVITY STAT 06/23/2024 11:19 PM EDT CBC WITH AUTO DIFFERENTIAL STAT 06/23/2024 11:19 PM EDT CBC AND DIFFERENTIAL STAT 06/23/2024 11:19 PM EDT B-TYPE NATRIURETIC PEPTIDE STAT 06/23/2024 11:19 PM EDT MAGNESIUM STAT 06/23/2024 11:19 PM EDT COMPREHENSIVE METABOLIC PANEL STAT 06/23/2024 11:19 PM EDT ECG 12-LEAD STAT 06/23/2024 10:22 PM EDT documented in this encounter Results * ECG-Annotated (06/25/2024) Provider Onbase MD ECG ORDERABLES Final Result * Troponin I high sensitivity (06/24/2024 12:26 AM EDT) High Sensitivity Troponin I 12 <=79 ng/L LAB CHEMISTRY METHOD 06/24/2024 2:18 AM EDT [facility] Blood Venous blood specimen / Unknown Venipuncture / Unknown 06/24/2024 12:26 AM EDT 06/24/2024 1:38 AM EDT Narrative [facility] - 06/24/2024 2:18 AM EDT High levels of biotin in samples may falsely decrease hsTroponin values. ??Use caution when interpreting hsTroponin results in patients taking biotin who exhibit renal impairment (eGFR <60) or in patients taking more than 20 mg/day of biotin. Bart [facility] LAB BLOOD ORDERABLES Huma l Result [facility] [address] [place] [address], * XR Chest 2 Views (06/23/2024 11:56 PM EDT) Anatomical Region Laterality Modality Body Radiographic Soumya ging 06/24/2024 8:05 AM EDT Impressions 06/24/2024 8:05 AM EDT No acute findings. -------- FINAL REPORT -------- Dictated By: Clovis Wagner Dictated Date: 06/24/2024 08:05 ET Assigned Physician: Clovis Wagner Reviewed and Electronically Signed By: Clovis Wagner Signed Date: 06/24/2024 08:05 ET Workstation ID: [id number] Transcribed By: Self Edit Transcribed Date: 06/24/2024 08:05 ET Narrative 06/24/2024 8:05 AM EDT PROCEDURE: PA and lateral radiographs of the chest. HISTORY: pain. COMPARISON: 06/13/2024. FINDINGS: Incidental note of an azygos fissure. ??Lungs, pleural spaces, pulmonary vasculature, and cardiomediastinal contours are normal. Procedure Note Clovis Wagner MD - 06/24/2024 PROCEDURE: PA and lateral radiographs of the chest. HISTORY: pain. COMPARISON: 06/13/2024. FINDINGS: Incidental note of an azygos fissure. Lungs, pleural spaces, pulmonaryvasculature, and cardiomediastinal contours are normal. IMPRESSION: No acute findings. -------- FINAL REPORT -------- Dictated By: Clovis Wagner Dictated Date: 06/24/2024 08:05 ET Assigned Physician: Clovis Wagner Reviewed and Electronically Signed By: Clovis Wagner Signed Date: 06/24/2024 08:05 ET Workstation ID: [id number] Transcribed By: Self Edit Transcribed Date: 06/24/2024 08:05 ET us Bart [facility] IMG XR PROCEDURES Final R esult * (ABNORMAL) Comprehensive metabolic panel (06/23/2024 11:19 PM EDT) Sodium 143 133 - 145 mmol/L LAB CHEMISTRY METHOD 06/24/2024 12:22 AM [facility] Potassium 4.0 3.5 - 5.5 mmol/L LAB CHEMISTRY METHOD 06/24/2024 12:22 AM [facility] Comment:Hemolysis present Chloride 109 96 - 110 mmol/L LAB CHEMISTRY METHOD 06/24/2024 12:22 AM [facility] CO2 26 21 - 32 mmol/L LAB CHEMISTRY METHOD 06/24/2024 12:22 AM [facility] Anion Gap 8 3 - 11 LAB CHEMISTRY METHOD 06/24/2024 12:22 AM [facility] Glucose 117(H) 70 - 100 mg/dL LAB CHEMISTRY METHOD 06/24/2024 12:22 AM [facility] BUN 23 5 - 25 mg/dL LAB CHEMISTRY METHOD 06/24/2024 12:22 AM [facility] Creatinine 1.07 0.70 - 1.30 mg/dL LAB CHEMISTRY METHOD 06/24/2024 12:22 AM [facility] eGFR 93 >=60 mL/min/1. 73m2 LAB CHEMISTRY METHOD 06/24/2024 12:22 AM [facility] Comment:Calculation based on the??Chronic Kidney Disease Epidemiology Collaboration (CKD-EPI) equation refit??without adjustment for race. BUN/Creatinine Ratio 21.5 LAB CHEMISTRY METHOD 06/24/2024 12:22 AM [facility] Calcium 9.3 8.5 - 10.5 mg/dL LAB CHEMISTRY METHOD 06/24/2024 12:22 AM [facility] AST (SGOT) 49(H) 10 - 42 unit/L LAB CHEMISTRY METHOD 06/24/2024 12:22 AM [facility] Comment:Hemolysis present ALT (SGPT) 32 10 - 60 unit/L LAB CHEMISTRY METHOD 06/24/2024 12:22 AM [facility] Alkaline Phosphatase 73 42 - 121 unit/L LAB CHEMISTRY METHOD 06/24/2024 12:22 AM [facility] Total Protein 7.6 6.0 - 8.0 g/dL LAB CHEMISTRY METHOD 06/24/2024 12:22 AM [facility] Albumin 3.9 3.2 - 5.0 g/dL LAB CHEMISTRY METHOD 06/24/2024 12:22 AM [facility] Total Bilirubin 0.4 0.0 - 1.4 mg/dL LAB CHEMISTRY METHOD 06/24/2024 12:22 AM [facility] Blood Venous blood specimen / Unknown Venipuncture / Unknown 06/23/2024 11:19 PM EDT 06/23/2024 11:42 PM EDT us Bart ACOSTA LAB BLOOD ORDERABLES Huma cartwright Result [facility] [address] [place] [address], [place] [phone] * (ABNORMAL) CBC auto differential (06/23/2024 11:19 PM EDT) WBC 9.2 4.8 - 10.8 K/mcL LAB HEMETOLOGY METHOD 06/23/2024 11:49 PM EDT [facility] RBC 4.40(L) 4.50 - 5.50 M/mcL LAB HEMETOLOGY METHOD 06/23/2024 11:49 PM EDT [facility] Hemoglobin 12.5(L) 13.5 - 17.5 g/dL LAB HEMETOLOGY METHOD 06/23/2024 11:49 PM EDT [facility] Hematocrit 39.2(L) 42.0 - 54.0 % LAB HEMETOLOGY METHOD 06/23/2024 11:49 PM EDT [facility] MCV 89.7 79.0 - 98.0 FL LAB HEMETOLOGY METHOD 06/23/2024 11:49 PM EDT [facility] MCH 28.6 27.0 - 32.0 pcg LAB HEMETOLOGY METHOD 06/23/2024 11:49 PM EDT [facility] MCHC 31.9(L) 32.0 - 37.0 g/dL LAB HEMETOLOGY METHOD 06/23/2024 11:49 PM EDT [facility] RDW 15.3(H) 11.0 - 15.0 % LAB HEMETOLOGY METHOD 06/23/2024 11:49 PM EDT [facility] Platelets 277 130 - 400 K/mcL LAB HEMETOLOGY METHOD 06/23/2024 11:49 PM [facility] MPV 12.4(H) 7.0 - 11.0 FL LAB HEMETOLOGY METHOD 06/23/2024 11:49 PM [facility] NRBC 0.0 <1.0 % LAB HEMETOLOGY METHOD 06/23/2024 11:49 PM [facility] NRBC Absolute 0.00 <0.10 K/mcL LAB HEMETOLOGY METHOD 06/23/2024 11:49 PM [facility] Neutrophils Relative 62.2 % LAB HEMETOLOGY METHOD 06/23/2024 11:49 PM [facility] Lymphocytes Relative 28.1 % LAB HEMETOLOGY METHOD 06/23/2024 11:49 PM [facility] Monocytes Relative 9.0 % LAB HEMETOLOGY METHOD 06/23/2024 11:49 PM [facility] Eosinophils Relative 0.1 % LAB HEMETOLOGY METHOD 06/23/2024 11:49 PM [facility] Basophils Relative 0.4 % LAB HEMETOLOGY METHOD 06/23/2024 11:49 PM [facility] Immature Granulocytes Relative 0.2 % LAB HEMETOLOGY METHOD 06/23/2024 11:49 PM [facility] Neutrophils Absolute 5.69 1.50 - 7.00 K/mcL LAB HEMETOLOGY METHOD 06/23/2024 11:49 PM [facility] Lymphocytes Absolute 2.57 1.00 - 5.00 K/mcL LAB HEMETOLOGY METHOD 06/23/2024 11:49 PM [facility] Monocytes Absolute 0.82 0.20 - 1.00 K/mcL LAB HEMETOLOGY METHOD 06/23/2024 11:49 PM [facility] Eosinophils Absolute 0.01 0.00 - 0.50 K/mcL LAB HEMETOLOGY METHOD 06/23/2024 11:49 PM EDT [facility] Basophils Absolute 0.04 0.00 - 0.20 K/[facility] LAB HEMETOLOGY METHOD 06/23/2024 11:49 PM EDT [facility] Immature Granulocytes Absolute 0.02 0.00 - 0.03 K/[facility] LAB HEMETOLOGY METHOD 06/23/2024 11:49 PM EDT [facility] Blood Venous blood specimen / Unknown Venipuncture / Unknown 06/23/2024 11:19 PM EDT 06/23/2024 11:42 PM EDT Bart ACOSTA LAB BLOOD ORDERABLES Huma l Result Performing Organization Address [facility] Co de Phone Number [facility] [address] [place] [address], * Troponin I high sensitivity (06/23/2024 11:19 PM EDT) [facility] High Sensitivity Troponin I 14 <=79 ng/L LAB CHEMISTRY METHOD 06/24/2024 12:08 AM EDT [facility] Blood Venous blood specimen / Unknown Venipuncture / Unknown 06/23/2024 11:19 PM EDT 06/23/2024 11:42 PM EDT Narrative [facility] - 06/24/2024 12:08 AM EDT High levels of biotin in samples may falsely decrease hsTroponin values. ??Use caution when interpreting hsTroponin results in patients taking biotin who exhibit renal impairment (eGFR <60) or in patients taking more than 20 mg/day of biotin. Bart ACOSTA LAB BLOOD ORDERABLES Huma l Result Performing Organization Address [facility]/ZIP Co de Phone Number [facility] [address] [place] [address], * Magnesium (06/23/2024 11:19 PM EDT) Pathologist [facility] Magnesium 2.0 1.9 - 2.6 mg/dL LAB CHEMISTRY METHOD 06/24/2024 12:22 AM EDT [facility] Comment:Hemolysis present Blood Venous blood specimen / Unknown Venipuncture / Unknown 06/23/2024 11:19 PM EDT 06/23/2024 11:42 PM EDT Bart ACOSTA LAB BLOOD ORDERABLES Huma l Result [facility] [address] [place] [address], [place] [phone] * B-type natriuretic peptide (06/23/2024 11:19 PM EDT) [facility] BNP 29 <=100 pcg/mL LAB CHEMISTRY METHOD 06/24/2024 12:15 AM EDT [facility] Blood Venous blood specimen / Unknown Venipuncture / Unknown 06/23/2024 11:19 PM EDT 06/23/2024 11:42 PM EDT Bart ACOSTA LAB BLOOD ORDERABLES Huma l Result [facility] [address] [place] [address], [place] [phone] * ECG 12 lead (06/23/2024 10:22 PM EDT) Pathologist [facility] Ventricular Rate ECG 107 BPM GEMUSE Atrial Rate 107 BPM GEMUSE P-R Interval 168 ms GEMUSE QRS Duration 80 ms GEMUSE Q-T Interval 314 ms GEMUSE QTc 419 ms GEMUSE P Wave Proctor 59 degrees GEMUSE R Proctor 44 degrees GEMUSE T Proctor 74 degrees GEMUSE ECG Interpretation Sinus tachycardia Possible Left atrial enlargement Borderline ECG When compared with ECG of 14-JUN-2024 09:42, No significant change was found Confirmed by Lu HENDRICKS YUFENG ([id number]) on 06/24/2024 12:54:49 PM GEMUSE 06/23/2024 10:2 2 PM EDT 06/24/2024 12:54 PM EDT us Bart ACOSTA ECG ORDERABLES Final Res ult GEMVICKIE documented in this encounter Visit Diagnoses Diagnosis Bilateral lower extremity edema- Primary Acute cystitis with hematuria Hyperglycemia Other abnormal glucose documented in this encounter Administered Medications Inactive Administered Medications - up to 3 most recent administrations Medication Order MAR Action Action Date Dose Rate Site furosemide (LASIX) tablet 20 mg 20 mg, oral, Once, On Poornima 06/24/24 at 0042, For 1 dose Given 06/24/2024 1:10 AM EDT 20 mg ketorolac (TORADOL) injection 15 mg 15 mg, intravenous, Once, On Poornima 06/24/24 at 0136, For 1 dose Given 06/24/2024 1:54 AM EDT 15 mg ondansetron (PF) (ZOFRAN) injection 4 mg 4 mg, intravenous, Once, On Poornima 06/24/24 at 0203, For 1 dose Given 06/24/2024 2:09 AM EDT 4 mg documented in this encounter Active and Recently Administered Medications Times are shown in EDT. Scheduled Medication Order 06/22/2024 06/23/2024 06/24/2024 furosemide (LASIX) tablet 20 mg (COMPLETED) 20 mg, oral, Once, On Poornima 06/24/24 at 0042, For 1 dose 0110 (Given - Provid er: Yesenia Garza RN) ketorolac (TORADOL) injection 15 mg (COMPLETED) 15 mg, intravenous, Once, On Poornima 06/24/24 at 0136, For 1 dose 0154 (Given - Provid er: Yesenia Garza, RN) ondansetron (PF) (ZOFRAN) injection 4 mg (COMPLETED) 4 mg, intravenous, Once, On Poornima 06/24/24 at 0203, For 1 dose 0209 (Given - Provid er: Yesenia Garza, RN) documented in this encounter Orders Medications Ordered That Russ ht Not Have Been Administered Count Last Ordered Date First Ordered Date cefTRIAXone (ROCEPHIN) 1 g i n sterile water 10 mL IV syringe 1 06/23/2024 HYDROmorphone (PF) injection 0.5 mg 1 06/23 General Supply Count Last Ordered Date First Or dered Date COMPRESSION STOCKINGS 1 06/24/2024 documented in this encounter Care Teams Route Relief Driver Relationship Specialty Start Date End Date Josh Velez DO [address] [facility] [address] [place], [place] PCP - General Internal Medicine 06/06/24 documented as of this encounter
--- OUTSIDE RECORDS SUMMARY | 2024-06-28 10:49 | XMS_ITS | Data Portability ---
Author Organization [facility] Address [address] [place] [address] Assessment Encounter Date Assessment Date Assessment LastModified by Organization Details LastModified Time 04/10/2022 04/10/2022 Patient agreed and verbally consents to this audio and video Telehealth appt via a secure platform [email or web address] Not available 04/10/2022 11:53:29 08/13/2022 08/13/2022 Patient agreed and verbally consents to this audio and video Telehealth appt via a secure platform [email or web address] Not available 08/13/2022 15:55:38 12/20/2022 12/20/2022 Patient agreed and verbally consents to this audio and video Telehealth appt via a secure platform [email or web address] Not available 12/20/2022 11:45:23 04/02/2023 04/02/2023 Patient agreed and verbally consents to this audio and video Telehealth appt via a secure platform [email or web address] Not available 04/02/2023 11:04:41 04/07/2024 04/07/2024 Patient agreed and verbally consents to this audio and video Telehealth appt via a secure platform [email or web address] Not available 04/07/2024 13:58:38 Plan of Treatment Reminders Order Date Submit Date Provider Last Modified By Organization Details Last Modified Time Details Appointments None recorded. Lab None recorded. Referral None recorded. Procedures None recorded. Surgeries None recorded. Imaging None recorded. Medication Orders erythromyci n 250 mg tablet 2024 025 [id number], [address], [place], [id number], 5 14:17:28 sucralfate 1 gram tablet 2024 025 [facility] #[id number], [address], [place], [id number], 5 14:17:31 celecoxib 200 mg capsule 2024 025 [facility] #[id number], [address], [place], [id number], 5 14:17:32 tizanidine 4 mg tablet 2023 024 [facility] #[id number], [address], [place], [id number], 4 11:04:27 suvorexant 10 mg tablet 2022 023 [facility][id number], [address] [place], [address], 3 12:16:09 tizanidine 4 mg tablet 2022 023 [facility] #[id number], [address], [place], [id number], 3 11:40:12 tramadol 50 mg tablet 2022 023 [facility] #[id number], [address], [place], [id number], 4 10:58:07 tizanidine 2 mg tablet 2022 023 [facility] #[id number], [address], [place], [id number], 3 11:40:20 prednisone 20 mg tablet 2022 023 [facility] #54705, [address], [place], [id number], 4 11:03:19 nabumetone 750 mg tablet 2022 023 [facility] #[id number], [address], [place], [id number], 4 11:02:08 Patient TargetsNo targets recorded. Patient InstructionsNo instructions recorded. Reason for Referral None Reported. Results Created Date Observation Date Name Description Value Unit Range Abnormal Flag Note LastModifiedBy Organization Detail LastModifiedTime 12/26/19 24 12/26/2023 XR, chest , 2 view No observ ation record ed. [facility] [address] [place], [address], 04/07/2024 14:23:09 12/26/19 24 12/26/2023 CT, abdom en + pelvi s, w/o contr ast No observ ation record ed. [facility] [address] [place], [address], 04/07/2024 14:23:09 12/27/19 24 12/27/2023 XR, abdom en No observ ation record ed. [facility] [address] [place], [address], 04/07/2024 14:23:09 Result Notes None recorded. Problems Name Problem SNOMED Code Status Onset Date Resolution Date Notes Provider Name and Address Organization Details Recorded Time History of Lyme disease 928406162 Active 2019 OMAR Lebron [address] [place], [address], [facility] 0 16:06:20 Chronic pancreat itis 927436556 Active 2019 Josh Velez DO [address] [place], [address], [facility] 0 16:34:38 Cellulit is of left lower limb [id number] 898237 Active 2020 Josh Velez DO [address] [place] [address], [address], [facility] 1 12:09:20 Substanc e abuse 71784959 Active 2020 DAVE BERGER [address] [place] [address], [address], [facility] 1 15:22:24 Spasm of back muscles 013265595 Active 2022 DAVE BERGER [address] [place] [address], [address], [facility] 3 11:48:30 Muscle pain 23557509 Active 2022 DAVE BERGER [address] [place] [address], [address], [facility] 3 11:52:50 Insomnia 585707507 Active 2022 DAVE BERGER [address] [place] [address], [address], [facility] 3 11:43:48 Chronic insomnia 894075228 Active 2022 Josh Velez DO [address] [place] [address], [address], [facility] 3 08:44:37 Alcohol dependen ce 17452938 Active 2023 DAVE BERGER [address] [place] [address], [address], [facility] 4 11:04:45 Panic attack 021321716 Active 2023 DAVE BERGER [address] [place] [address], [address], [facility] 4 08:35:[address] of pancreas 303134503 Active 2023 Josh A. Bigda, [address], [address], [facility] 4 09:33:58 Steatoti c liver disease 413820420 Active 2023 Josh Velez, [address], [address], [facility] 4 09:34:15 Gastropa resis syndrome 968246224 Active 2024 DAVE BERGER [address] [place] [address], [address], [facility] 5 13:58:18 Acute pancreat itis 847857562 Completed 201702/07/2020/2 to ETOH Josh Velez, [address], [address], [facility] 0 16:32:50 Anxiety 77345211 [facility] 8 11:29:44 History of depressi on 488821510 [facility] 8 11:29:58 Harmful pattern of use of alcohol 89738303 [facility] [address], [address], [facility] 8 16:15:50 Attentio n deficit hyperact ivity disorder 736901544 Active 2017 [facility] [address], [address], [facility] 8 16:42:44 Depressi ve disorder 27347535 Active 2017 [facility] [address], [address], [facility] 8 16:45:52 Problem Notes None recorded. Procedures Surgical History None recorded. Imaging Results Imaging Date Name Status LastModified by Organiz ation Details LastModified Time 12/26/2023 XR, chest, 2 view completed [facility] [address] [place], [address], 04/07/2024 14:23:09 12/26/2023 CT, abdomen + pelvis, w/o contrast completed [facility] [address] [place], [address], 04/07/2024 14:23:09 12/27/2023 XR, abdomen completed [facility] [address] [place], [address], 04/07/2024 14:23:09 Procedure Notes None recorded. Medical Equipment None Reported. Allergies No known drug allergies Medications Name Sig Start Date Stop Date Status Note LastModified by Organization Details LastModified Time carisoprodo l 350 mg tablet TK 1 T PO TID PRN 02/06 completed Not Available Not Available Not Available quetiapine 25 mg tablet TAKE 1 TABLET BY MOUTH TWICE DAILY active Not Available Not Available No t Available celecoxib 200 mg capsule TAKE 1 CAPSULE BY MOUTH TWICE DAILY active Not Available Not Available No t Available cyclobenzap rine 10 mg tablet TAKE 1 TABLET BY MOUTH THREE TIMES DAILY FOR 7 DAYS 05/25 completed Not Available Not Available Not Available amoxicillin 500 mg capsule TAKE ONE CAPSULE BY MOUTH TWICE DAILY FOR 14 DAYS 04/02 completed Not Available Not Available Not Available methocarbam ol 500 mg tablet 05/25 completed Not Available Not Available Not Available buspirone 5 mg tablet TAKE 1 TABLET BY MOUTH 2 TO 3 TIMES A DAY DIRECTED 04/02 completed Not Available Not Available Not Available doxepin 50 mg capsule 03/05 completed Not Available Not Available Not Available clonidine HCl 0.1 mg tablet TAKE 1 TABLET BY MOUTH THREE TIMES DAILY 05/25 completed Not Available Not Available Not Available venlafaxine ER 75 mg capsule,ext ended release 24 hr 03/05 completed Not Available Not Available Not Available gabapentin 600 mg tablet TAKE 1 TABLET BY MOUTH THREE TIMES DAILY 04/07 completed Not Available Not Available Not Available nabumetone 750 mg tablet TAKE 1 TABLET BY MOUTH TWICE DAILY WITH MEALS 04/02 completed Not Available Not Available Not Available tizanidine 2 mg tablet TAKE 1 TABLET BY MOUTH EVERY 6 HOURS FOR 7 DAYS NEEDED 12/20 completed Not Available Not Available Not Available trazodone 50 mg tablet TAKE 1 TABLET BY MOUTH AT BEDTIME FOR SLEEP 12/20 completed Not Available Not Available Not Available Lidocaine Viscous 2 % mucosal solution 07/04 completed Not Available Not Available Not Available tizanidine 4 mg tablet Take 2 tables po q 6 hours prn 2024 active Not Available Not Available Not Avai lable sucralfate 1 gram tablet TAKE 1 TABLET BY MOUTH FOUR TIMES DAILY FOR 14 DAYS DIRECTED active Not Available Not Available No t Available naltrexone 50 mg tablet 07/04 completed Not Available Not Available Not Available ondansetron HCl 4 mg tablet TAKE 1 TABLET BY MOUTH EVERY 8 HOURS NEEDED FOR NAUSEA OR VOMITING active Not Available Not Available No t Available prednisone 20 mg tablet TAKE 1 TABLET BY MOUTH EVERY DAY FOR 7 DAYS 04/02 completed Not Available Not Available Not Available clonazepam 0.5 mg tablet TAKE 2 TABLETS BY MOUTH DAILY. MAY TAKE AN ADDITIONA L 0.5 MG TABLET NEEDED FOR SEVERE ANXIETY 09/22 completed Not Available Not Available Not Available gabapentin 400 mg capsule TAKE 2 CAPSULES BY MOUTH TWICE DAILY 04/02 completed Not Available Not Available Not Available clonazepam 1 mg tablet TAKE 1 TABLET BY MOUTH TWICE DAILY NEEDED active Not Available Not Available No t Available Milk of Magnesia 400 mg/5 mL oral suspension TAKE 5MLS BY MOUTH EVERY DAY NEEDED FOR STOMACH UPSET 04/02 completed Not Available Not Available Not Available phentermine 15 mg capsule TAKE 1 CAPSULE BY MOUTH EVERY DAY IN THE MORNING 04/07 completed Not Available Not Available Not Available hydroxyzine pamoate 50 mg capsule TAKE ONE CAPSULE BY MOUTH EVERY 8 HOURS NEEDED FOR ANXIETY OR SLEEP 11/28 completed Not Available Not Available Not Available topiramate 25 mg tablet TAKE 1 TABLET BY MOUTH EVERY DAY 12/20 completed Not Available Not Available Not Available risperidone 0.25 mg tablet TAKE 1 TABLET BY MOUTH EVERY DAY 04/02 completed Not Available Not Available Not Available acetaminoph en 300 mg-codeine 30 mg tablet 07/04 completed Not Available Not Available Not Available levofloxaci n 250 mg tablet TAKE 1 TABLET BY MOUTH DAILY WITH BREAKFAST 04/02 completed Not Available Not Available Not Available doxepin 10 mg capsule TAKE 3 CAPSULES BY MOUTH EVERY NIGHT AT BEDTIME active Not Available Not Available No t Available peg-electro lyte solution 420 gram oral solution USE DIRECTED 04/02 completed Not Available Not Available Not Available omeprazole 40 mg capsule,del ayed release TAKE 1 CAPSULE BY MOUTH DAILY 04/02 completed Not Available Not Available Not Available tramadol 50 mg tablet Take 1 tablet every 8 hours by oral route as needed for 7 days. 04/02 completed Not Available Not Available Not Available amoxicillin 500 mg tablet 07/04 completed Not Available Not Available Not Available pentoxifyll ine ER 400 mg tablet,exte nded release TAKE 1 TABLET BY MOUTH THREE TIMES DAILY WITH MEALS active Not Available Not Available No t Available lamotrigine 25 mg tablet TAKE 1 TABLET BY MOUTH EVERY DAY 04/02 completed Not Available Not Available Not Available pantoprazol e 20 mg tablet,ruben yed release TAKE 1 TABLET BY MOUTH TWICE DAILY FOR 2 WEEKS 04/07 completed Not Available Not Available Not Available erythromyci n 250 mg tablet TAKE 1 TABLET BY MOUTH EVERY 8 HOURS NEEDED active Not Available Not Available No t Available Vistaril 100 mg capsule Take 1 capsule twice a day by oral route. 03/05 completed Not Available Not Available Not Available amitriptyli ne 25 mg tablet TAKE 1 TABLET BY MOUTH EVERY DAY 04/02 completed Not Available Not Available Not Available metoclopram negro 5 mg tablet TAKE 1 TABLET BY MOUTH THREE TIMES DAILY NEEDED FOR NAUSEA OR VOMITING active Not Available Not Available No t Available methocarbam ol 750 mg tablet TAKE 1 TABLET BY MOUTH THREE TIMES DAILY FOR 7 DAYS NEEDED 05/25 completed Not Available Not Available Not Available trazodone 100 mg tablet TAKE 1 TABLET BY MOUTH AT BEDTIME FOR SLEEP 12/20 completed Not Available Not Available Not Available dicyclomine 20 mg tablet TAKE 1 TABLET BY MOUTH THREE TIMES DAILY 12/20 completed Not Available Not Available Not Available lorazepam 2 mg tablet TAKE 1 TABLET BY MOUTH TWICE A DAY NEEDED FOR 3 DAYS 05/08 completed Not Available Not Available Not Available diazepam 2 mg tablet Take 1 tablet twice a day by oral route. 03/05 completed Not Available Not Available Not Available hyoscyamine 0.125 mg disintegrat ing tablet DISSOLVE 1 TABLET ON THE TONGUE 2 TO 4 TIMES A DAY NEEDED FOR INDIGESTI ON 04/02 completed Not Available Not Available Not Available cephalexin 500 mg capsule Take 1 capsule every 6 hours by oral route for 7 days. 05/08 completed Not Available Not Available Not Available nortriptyli ne 10 mg capsule TAKE 2 CAPSULES BY MOUTH AT BEDTIME 06/14 completed Not Available Not Available Not Available mirtazapine 30 mg tablet TAKE 1 TABLET BY MOUTH AT BEDTIME 11/28 completed Not Available Not Available Not Available trazodone 150 mg tablet TAKE 1 TABLET BY MOUTH AT BEDTIME FOR SLEEP 12/20 completed Not Available Not Available Not Available buspirone 10 mg tablet TAKE 1 TABLET BY MOUTH TWICE DAILY 05/25 completed Not Available Not Available Not Available hyoscyamine 0.125 mg sublingual tablet DISSOLVE 1 TABLET UNDER THE TONGUE 2 TO 4 TIMES A DAY NEEDED FOR INDIGESTI ON 04/07 completed Not Available Not Available Not Available clonazepam 2 mg tablet TAKE 1 TABLET BY MOUTH EVERY DAY NEEDED active Not Available Not Available No t Available nicotine 21 mg/24 hr daily transdermal patch APPLY ONE PATCH DAILY EVERY 24 HOURS 04/07 completed Not Available Not Available Not Available dextroamphe tamine-amph etamine 15 mg tablet Take 1 tablet every day by oral route for 30 days. 04/21 completed Not Available Not Available Not Available Gas Relief Extra Strength 125 mg capsule TAKE ONE CAPSULE BY MOUTH FOUR TIMES DAILY NEEDED FOR ABDOMINAL PAIN 04/02 completed Not Available Not Available Not Available pramipexole 0.25 mg tablet 03/05 completed Not Available Not Available Not Available gabapentin 300 mg capsule TAKE 1 CAPSULE BY MOUTH AT BEDTIME 04/02 completed Not Available Not Available Not Available diclofenac sodium 75 mg tablet,ruben yed release TAKE 1 TABLET BY MOUTH TWICE DAILY NEEDED 05/25 completed Not Available Not Available Not Available simethicone 125 mg chewable tablet CHEW AND SWALLOW 1 TABLET BY MOUTH THREE TIMES DAILY NEEDED FOR ABDOMINAL PAIN 12/20 completed Not Available Not Available Not Available folic acid 1 mg tablet 05/25 completed Not Available Not Available Not Available hydroxyzine HCl 25 mg tablet TAKE 1 TABLET BY MOUTH FOUR TIMES DAILY NEEDED FOR ANXIETY 11/28 completed Not Available Not Available Not Available mupirocin 2 % topical ointment APPLY A SMALL AMOUNT TO THE AFFECTED AREA BY TOPICAL ROUTE 4 TIMES PER DAY 05/09 completed Not Available Not Available Not Available furosemide 20 mg tablet Take 1 tablet every day by oral route. 2024 active Not Available Not Available Not Avai lable mirtazapine 15 mg tablet TAKE 1 TABLET BY MOUTH EVERY NIGHT 04/07 completed Not Available Not Available Not Available gabapentin 100 mg capsule TAKE 1 CAPSULE BY MOUTH TWICE DAILY 11/20 completed Not Available Not Available Not Available ibuprofen 600 mg tablet 05/25 completed Not Available Not Available Not Available cefuroxime axetil 500 mg tablet 03/05 completed Not Available Not Available Not Available polyethylen e glycol 3350 17 gram/dose oral powder MIX 17 GRAMS IN LIQUID AND DRINK BY MOUTH DAILY active Not Available Not Available No t Available dextroamphe tamine-amph etamine ER 30 mg 24hr capsule,ext end release Take 1 capsule every day by oral route for 30 days. 04/21 completed Not Available Not Available Not Available propranolol 20 mg tablet TAKE 1 TABLET BY MOUTH TWICE A DAY 02/06 completed Not Available Not Available Not Available colestipol 5 gram oral packet TAKE 5 GRAMS BY MOUTH TWICE DAILY 04/02 completed Not Available Not Available Not Available fluoxetine 20 mg capsule TAKE 1 CAPSULE BY MOUTH EVERY MORNING 04/02 completed Not Available Not Available Not Available colestipol 1 gram tablet 04/07 completed Not Available Not Available Not Available doxycycline hyclate 100 mg tablet TAKE 1 TABLET BY MOUTH TWICE DAILY WITH MEALS FOR ACUTE OPIOID THERAPY DAYS 04/10 completed Not Available Not Available Not Available dicyclomine 10 mg capsule TAKE 1 CAPSULE BY MOUTH THREE TIMES DAILY 04/07 completed Not Available Not Available Not Available risperidone 0.5 mg tablet TAKE 1 TABLET BY MOUTH EVERY DAY 04/02 completed Not Available Not Available Not Available diazepam 5 mg tablet TAKE 1 TO2 TABLETS BY MOUTH 1 HOURS BEFORE PROCEDURE . DONT TAKE WITH CLONAZEPA M 05/16 completed Not Available Not Available Not Available finasteride 1 mg tablet TAKE ONE TABLET BY MOUTH ONCE DAILY 04/02 completed Not Available Not Available Not Available amoxicillin 875 mg-potassiu m clavulanate 125 mg tablet TAKE 1 TABLET BY MOUTH TWICE DAILY 04/07 completed Not Available Not Available Not Available buspirone 15 mg tablet TAKE 1 TABLET BY MOUTH THREE TIMES DAILY active Not Available Not Available No t Available hydroxyzine pamoate 25 mg capsule TAKE 1 CAPSULE BY MOUTH TWICE DAILY NEEDED FOR ANXIETY 05/25 completed Not Available Not Available Not Available C-1000 1,000 mg tablet TAKE 1 TABLET BY MOUTH EVERY DAY 04/07 completed Not Available Not Available Not Available dextroamphe tamine-amph etamine ER 25 mg 24hr capsule,ext end release 10/03 completed Not Available Not Available Not Available azithromyci n 500 mg tablet TAKE 1 TABLET BY MOUTH FOR 14 DAYS NEEDED FOR GASTROPAR ESIS TAKE FOR NO MORE THAN 3 DAILY 04/07 completed Not Available Not Available Not Available escitalopra m 10 mg tablet TAKE 1 TABLET BY MOUTH EVERY DAY 04/02 completed Not Available Not Available Not Available escitalopra m 20 mg tablet TAKE 1 TABLET BY MOUTH DAILY 04/07 completed Not Available Not Available Not Available aripiprazol e 10 mg tablet TAKE 1 TABLET BY MOUTH EVERY DAY 04/02 completed Not Available Not Available Not Available atomoxetine 18 mg capsule TAKE 1 CAPSULE BY MOUTH EVERY MORNING 04/02 completed Not Available Not Available Not Available cyclobenzap rine 5 mg tablet TAKE 1 TABLET BY MOUTH THREE TIMES DAILY NEEDED FOR MUSCLE SPAMS 12/20 completed Not Available Not Available Not Available aripiprazol e 5 mg tablet TAKE 1 TABLET BY MOUTH EVERY DAY 04/02 completed Not Available Not Available Not Available escitalopra m 5 mg tablet TAKE 1 TABLET BY MOUTH EVERY DAY 04/02 completed Not Available Not Available Not Available topiramate 50 mg tablet TAKE 1 TABLET BY MOUTH EVERY DAY 04/02 completed Not Available Not Available Not Available glycerin (adult) rectal suppository UNWRAP AND INSERT 1 SUPPOSITO RY RECTALLY DAILY NEEDED FOR CONSTIPAT ION 04/07 completed Not Available Not Available Not Available mirtazapine 7.5 mg tablet TAKE 1 TABLET BY MOUTH EVERY NIGHT 04/07 completed Not Available Not Available Not Available acamprosate 333 mg tablet,ruben yed release 07/04 completed Not Available Not Available Not Available duloxetine 20 mg capsule,del ayed release TAKE 1 CAPSULE BY MOUTH TWICE DAILY 05/25 completed Not Available Not Available Not Available duloxetine 30 mg capsule,del ayed release 05/08 completed Not Available Not Available Not Available duloxetine 60 mg capsule,del ayed release TAKE 1 CAPSULE BY MOUTH EVERY DAY active Not Available Not Available No t Available lactulose 10 gram/15 mL oral solution TAKE 30 ML BY MOUTH TWICE DAILY 04/07 completed Not Available Not Available Not Available eszopiclone 2 mg tablet TAKE 1 TABLET BY MOUTH AT BEDTIME 04/02 completed Not Available Not Available Not Available eszopiclone 1 mg tablet TAKE 1 TABLET BY MOUTH AT BEDTIME 04/02 completed Not Available Not Available Not Available pregabalin 75 mg capsule TAKE 1 CAPSULE BY MOUTH TWICE DAILY 01/10 completed Not Available Not Available Not Available pregabalin 100 mg capsule TAKE 1 CAPSULE BY MOUTH TWICE DAILY 01/11 completed Not Available Not Available Not Available ramelteon 8 mg tablet TAKE 1 TABLET BY MOUTH AT BEDTIME 04/02 completed Not Available Not Available Not Available Effexor 06/30 completed Not Available Not Available Not Available Lexapro 06/30 completed Not Available Not Available Not Available Cymbalta 30mg 03/05 completed Not Available Not Available Not Available lubiproston e 24 mcg capsule TAKE 1 CAPSULE BY MOUTH TWICE DAILY 04/02 completed Not Available Not Available Not Available aripiprazol e 2 mg tablet TAKE 1 TABLET BY MOUTH EVERY DAY 04/02 completed Not Available Not Available Not Available Creon 12,000-38,0 00-60,000 unit capsule,del ayed release TAKE 3 CAPSULES BY MOUTH THREE TIMES DAILY active Not Available Not Available No t Available Creon 6,000-19,00 0-30,000 unit capsule,del ayed release Take 3 capsules 3 times a day by oral route for 14 days. 04/02 completed Not Available Not Available Not Available Xifaxan 550 mg tablet 05/25 completed Not Available Not Available Not Available doxepin 3 mg tablet TAKE 1 TABLET BY MOUTH AT BEDTIME 12/20 completed Not Available Not Available Not Available buprenorphi ne 8 mg-naloxone [address] ONE FILM UNDER THE TONGUE ONCE A DAY 04/02 completed Not Available Not Available Not Available Viibryd 10 mg tablet 03/05 completed Not Available Not Available Not Available vilazodone 40 mg tablet TAKE 1 TABLET BY MOUTH EVERY DAY 12/20 completed Not Available Not Available Not Available vilazodone 20 mg tablet TAKE 1 TABLET BY MOUTH DAILY active Not Available Not Available No t Available Viokace 20,880 unit-78,300 unit-78,300 unit tablet TAKE 1 TO 3 TABLETS BY MOUTH WITH THE FIRST BITE OF EACH MAIN MEAL 04/02 completed Not Available Not Available Not Available Linzess 145 mcg capsule TAKE 1 CAPSULE BY MOUTH DAILY 08/11 completed Not Available Not Available Not Available Linzess 290 mcg capsule TAKE 1 CAPSULE BY MOUTH EVERY MORNING active Not Available Not Available No t Available Suboxone 12 mg-[address] 1 film every day by sublingua l route. 05/09 completed Not Available Not Available Not Available suvorexant 10 mg tablet Take 1 tablet every day by oral route at bedtime for 10 days. 12/27 completed Not Available Not Available Not Available duloxetine 40 mg capsule,del ayed release TAKE 1 CAPSULE BY MOUTH EVERY DAY 06/08 completed Not Available Not Available Not Available E-200 90 mg (200 unit) capsule TAKE ONE CAPSULE BY MOUTH EVERY DAY 04/02 completed Not Available Not Available Not Available Narcan 4 mg/actuatio n nasal spray 05/25 completed Not Available Not Available Not Available Linzess 72 mcg capsule TAKE 1 CAPSULE BY MOUTH DAILY 04/02 completed Not Available Not Available Not Available Vitals None Recorded Social History Question Answer Notes LastModified by Organizat ion Details LastModified Time Tobacco Smoking Status Former Smoker Not Available [facility] 03:36:23 What Was The Date Of Your Most Recent Tobacco Screening? 05/25/2021 [email or web address] Information not available 04/02/2023 How Many Years Have You Smoked Tobacco? 5 [id number] Information not available 01/04/2020 Do You Or Have You Ever Used Any Other Forms Of Tobacco Or Nicotine? No [email or web address] Information not available 04/02/2023 Sex: Unknown Functional Status None recorded. Mental Status None recorded. Family History Nothing Reported. Medical History No medical history recorded. Immunizations Vaccine Type Date Status Note Provider Bert e and Address Organization Details Recorded Time COVID-19, mRNA, LNP-S, PF, 30 mcg/0.3 mL dose 05/20/2020 completed Marissa hargrove [facility] 07/11/2020 11:06:28 COVID-19, mRNA, LNP-S, PF, 30 mcg/0.3 mL dose 06/14/2020 completed Marissa hargrove [facility] 07/11/2020 11:06:33 Past Encounters Encounter ID Performer Location Encounter Start Date Encounter Closed Date Diagnosis/Indication Diagnosis SNOMED-CT Code Diagnosis ICD10 Code Diagnosis Note [id number] June Vi, [facility] [address] [facility],[place] [address] 07/04/2017 15:56:39 07/04/2017 16:41:12 Harmful pattern of use of alcohol 71288354 F10.10 [id number] June [facility] [address] [facility],[place] [address] 08/04/2017 16:18:50 08/04/2017 17:01:51 Harmful pattern of use of alcohol 35248320 F10.10 he does seem to be cutting back. he's on quite a few medication s which I don't particular ly approve of given his alcohol abuse, but this is being managed by his psychiatri st, who per the patient, is aware of the alcohol abuse. he has already had the topamax refilled I've asked patient to reach out to his psychiatri st to let him know that he was started on the topamax for alcohol abuse. he does not consent today for us to send a letter of his summary of care today. continue therapy with [facility]. Anxiety 72905387 F41.[address] khan Depressive disorder 3548 9002 F32.[address] khan Attention deficit hyperactivity disorder 369748905 F90.[address] khan Tick bite 48438025 S00.9 6XA will monitor for bullseye rash [id number] Madai Huang NP, [facility] [address] [facility],[place] [address] 06/17/2018 09:21:30 06/17/2018 13:49:38 Edema of lower extremity 900471191 R60.0 Harmful pa ttern of use of alcohol 80815767 F10.10 [id number] Madai Huang NP, [facility] [address] [facility],[place] [address] 06/30/2018 16:03:16 07/01/2018 09:14:37 Alcohol dependence 94901087 F10.20 Currently sober History of depression 16 8790441 Z86.59 will try low dose Cymbalta Attention deficit hyperactivity disorder 419829386 F90.9 will discuss when returns to work Anxiety 17210320 F41.9 NO BENZO's, will contact psychiatri st Edema of l ower extremity 220112327 R60.0 improved, nml labs [id number] Josh Velez [facility] [address] [facility],[place] [address] 03/05/2019 16:08:10 03/05/2019 16:55:15 Impetigo 24270351 L01.00 try bactroban and cephalexin [id number] [facility] [address] [facility],[place] [address] 05/10/2019 15:14:18 05/10/2019 16:22:09 Depressive disorder 03360842 F32.[address] khan Anxiety 84410307 F41.[address] khan Chronic al coholism in remission 943586853 F10.21 did a rehab in [place], has been sober for 1 year! Adverse re action to drug 06996909 T50.907S will stop the 20 mg dose and write for the 40 mg dose and reevaluate will also get us labs from [facility] [id number] Mine [facility] [place] [facility] [address] [facility],[place] [address] 05/21/2019 15:36:54 05/21/2019 16:17:34 Loss of hair 621625770 L65.9 Anxiety 84740549 F41.9 much better with increased dose of cymbalta Fatigue 77284322 R53.83 no too bad right now will check labs above as well [id number] MINAL ContrerasCINDY [facility] [address] [facility],[place] [address] 06/09/2019 15:56:45 06/09/2019 16:37:55 Anti-nuclear factor detected 793731358 R76.8 1:40 nuclear speckled Muscle pain 31418153 M79 .10 unclear etiology with low positive EDILBERTO, will refer to rheum trial nabumetone Diarrhea 48381404 R19.7 mixed diarrhea/c onstipatio n suggests IBS consider fodmaps diet Constipation 15787300 K5 9.00 Anxiety 82840683 F41.9 much better with increased dose of cymbalta Fatigue 54763323 R53.83 Vitamin D deficiency 347 04428 E55.9 [id number] Josh Velez DO [facility] [address] [facility], [place] [facility] [place] [address] 07/05/2019 15:55:27 07/05/2019 16:26:49 Chronic nonspecific abdominal pain 944373950 R10.9 will consider poss IBD or even biliary as source but will wait for input from GI dr and the Hematology Anxiety 04657450 F41.9 [id number] DAVE BERGER [facility] [address] [facility], [place] [facility] [place] [address] 10/04/2019 09:07:46 10/04/2019 09:49:08 Ankle pain 210563922 M25.579 APAP not helping and Diclofenac is not advised given stomach issues he is currently experienci ng will give him 15 days of tramadol in the meantime for the pain advised to elevate leg and ice it throughout the day will stop Keflex as it is bothering his stomach Harmful pa ttern of use of alcohol 18350466 F10.10 patient is still drinking which may be contributi ng to his stomach, abdominal pain hx of pancreatit is Attention deficit hyperactivity disorder 309598366 F90.9 stable per patient Anxiety 19985864 F41.9 stable per patient Abdominal pain 61528922 R10.9 following up with GI will wait for consult note to see what is going on [id number] Josh Velez [facility] [address] [facility],[place] [address] 11/03/2019 11:22:16 11/03/2019 12:30:35 Tobacco user 073997933 Z72.0 Anxiety 57039205 F41.9 [id number] Josh Velez [facility] [address] [facility],[place] [address] 02/07/2020 15:57:44 02/07/2020 16:42:32 Cellulitis of left lower limb 4973740644 9020666 L03.116 we will need to treat the leg before anything as this is clearly not resolved Chronic pancreatitis 235 704124 K86.1 would like to have kwan see a real pain management spec for the chronic pancreatit is and small bowel dis we will try the nortript route with nsaid and oipening pain meds to try to break the cycle of chronic pain cont to use the creon [id number] Josh Velez [facility] Internal [facility] [address] [facility],[place] [address] 02/18/2020 16:07:21 02/18/2020 16:28:49 Chronic pancreatitis 005594954 K86.1 would like to have kwan see a real pain management spec for the chronic pancreatit is and small bowel dis we will try the nortript route with nsaid and oipening pain meds to try to break the cycle of chronic pain cont to use the creon Intractabl e abdominal pain 0649028282 6856162 R10.9 will refer to a pain management as he is clearly debilitate d by this will go back to tramadol [id number] Josh Velez [facility] [address] [facility],[place] [address] 02/28/2020 12:03:43 02/28/2020 13:56:07 Harmful pattern of use of alcohol 35917787 F10.10 Chronic pancreatitis 235 200064 K86.1 would like to have kwan see a real pain management spec for the chronic pancreatit is and small bowel dis we will try the nortript route with nsaid and oipening pain meds to try to break the cycle of chronic pain cont to use the creon [id number] DAVE BERGER [facility] [address] [facility],[place] [address] 05/08/2020 10:01:38 05/08/2020 10:27:37 Harmful pattern of use of alcohol 26892537 F10.10 patient is still drinking, currently drinking water only, supposed to be no solids Chronic pancreatitis 235 473428 K86.1 will fu with pain management for pain control [id number] Josh Velez DO [facility] [address] [facility],[place] [address] 05/16/2020 11:47:14 05/16/2020 12:26:25 Chronic pancreatitis 492856089 K86.1 seeing pain management and they are trying ti get him some pump device for his chronic pancreatit is in meantime i will cont the tramadol currently is holding his own Cellulitis of left lower limb 7176808861 1758192 L03.116 we will need to treat the leg before anything as this is clearly not resolved [id number] Josh Velez DO [facility] [address] [facility],[place] [address] 06/14/2020 12:00:37 06/14/2020 12:44:26 Cellulitis of left lower limb 1626828347 5296459 L03.116 we will need to treat the leg before anything as this is clearly not resolved Chronic pancreatitis 235 556585 K86.1 seeing pain management and they are trying ti get him some pump device for his chronic pancreatit is in meantime i will cont the tramadol currently is holding his own Auditory hallucinations 40047858 R44.0 [id number] Josh Velez DO [facility] [address] [place] [address] 07/12/2020 12:04:45 07/12/2020 14:29:24 Chronic pancreatitis 554019974 K86.1 seeing pain management and they are trying ti get him some pump device for his chronic pancreatit is in meantime i will cont the tramadol currently is holding his own Cellulitis of left lower limb 9563169829 7680457 L03.116 we will need to treat the leg before anything as this is clearly not resolved Verbal aud itory hallucinations 022908472 R44.0 will speak with his psychiatri st we will wait and see about the meds per the psych visit and if no changes then we thaddeus increase the seroquel to 50 bid. [id number] Josh Velez DO [facility] [address] [facility],[place] [address] 08/11/2020 15:11:58 08/11/2020 16:31:47 Cellulitis of left lower limb 0552413391 6636874 L03.116 we will need to treat the leg before anything as this is clearly not resolved Harmful pa ttern of use of alcohol 13154877 F10.10 he is in recovery History of depression 16 2742280 Z86.59 he is back on abilify and has been on for abput 2 weeks Depressive disorder 7138 9007 F32.9 overall is about the same even on the abilify 2 weeks in to tx and still having the voices Chronic al coholism in remission 488881101 F10.21 relates that he has had a fermented tea called Kampuchea Chronic pancreatitis 235 112259 K86.1 seeing pain management and they are trying ti get him some pump device for his chronic pancreatit is in meantime i will cont the tramadol currently is holding his own [id number] DAVE BERGER [facility] [address] [facility],[place] [address] 11/28/2020 08:17:20 11/28/2020 16:03:59 Anxiety 11250514 F41.1 will start buspar at 5 mg onlyAdvise d patient fu with his psychiatri st for other medication sdiscussed with LUZ Harmful pa ttern of use of alcohol 22719737 F10.10 patient is still drinking, currently drinking water only, supposed to be no solids Substance abuse 03734404 F19.180 stable currently per patient Chronic pancreatitis 235 154454 K86.1 will fu with pain management for pain controlno narcotics through this office due to pain management contract and hx of substance abuse [id number] Josh Velez [facility] [address] [facility],[place] [place] [address] 12/20/2020 10:52:13 12/20/2020 11:33:26 Depressive disorder 58795350 F32.9 overall is about the same even on the abilify 2 weeks in to tx and still having the voices Anxiety 72301260 F41.9 we are contacting cordero abhay for disch summary as he was treated with diazepam and this seemed to help more than others in the past and is requesting for short term use when anxiety becomes uncontroll jeremiah then present nate to dr Khan for aknowledge ment first [id number] Josh Velez [facility] [address] [facility],[place] [address] 05/25/2021 15:14:49 05/25/2021 16:41:32 Chronic pancreatitis 836360222 K86.1 seeing pain management and they are trying ti get him some pump device for his chronic pancreatit is in meantime i will cont the tramadol currently is holding his own Unintentio nal weight gain 7892361225 18531 R63.5 believe this is due to the nethadone 95 he is now taking for the chronic pain of pancreatit iswe will look into livier to see if therie is a counter to the weight gain Substance abuse 79368844 F19.180 he is stable and is currently on methadone 95 [id number] DAVE BERGER [facility] [address] [facility],[place] [address] 04/10/2022 09:11:31 04/10/2022 15:12:52 Spasm of back muscles 411831501 M62.830 will do a combo of short pred burst with nabumetone and tizanidine between every 6 hours as needed Muscle pain 19033769 M79 .18 will up date me with progress on friday [id number] DAVE BERGER [facility] [address] [facility],[place] [address] 08/13/2022 09:25:49 08/13/2022 16:04:09 Spasm of back muscles 197207795 M62.830 will up his dose of tizanidine which seems to work the best Chronic pancreatitis 235 369812 K86.1 MB okay with tramadol7 days courseno other narcotics per contract Substance abuse 92047105 F19.180 stable currently per patient [id number] DAVE BERGER [facility] [address],[place] [facility] [place] [address] 12/20/2022 10:14:04 12/20/2022 12:11:35 Insomnia 548916428 G47.09 will do a week trial, see if we can promote health sleep habits and a week course of belsomra [id number] DAVE BERGER [facility] [address],[place] [address] 04/02/2023 09:04:47 04/02/2023 11:42:14 Spasm of back muscles 425277412 M62.830 will up his dose of tizanidine which seems to work the best Alcohol dependence 37913 003 F10.21 stable Chronic pancreatitis 235 508416 K86.1 will cont monitor through GI Substance abuse 01831696 F19.180 stable per patient [id number] DAVE BERGER [facility] [address],[place] [address] 04/07/2024 11:04:40 04/07/2024 14:46:25 Gastroparesis syndrome 430048509 K31.84 trial alt for better control Chronic pancreatitis 235 235270 K86.1 journavx not on market yet, will check for it when it is available Substance abuse 10429200 F19.180 stable per patient Health Concerns Section Related Observation LastModified by Organization Detai ls LastModified Time None Recorded Concern Status LastModified by Organization Details LastModified Time None Recorded Advance Directives Directive None Recorded Payers Encounter Date Sequence Insurance Name Policy Number Policy Ta Covered Member ID Ta Member ID Guarantor Name 08/13/2022 1 [place] [employer] Kwan Ibrahim [id number] Kwan Ibrahim 08/13/2022 2 [place] Kwan [place] [id number] Kwan [place] 12/20/2022 1 [place] Kwan D [place] [id number] Kwan [place] 12/20/2022 2 [place] Kwan [place] [id number] Kwan [place] 04/02/2023 1 [place] [employer] Kwan D [place] [id number] Kwan [place] 04/02/2023 2 [place] Kwan [place] [id number] Kwan [place] 04/07/2024 1 [place] [employer] Kwan D [place] [id number] Kwan [place] 04/07/2024 2 [place] [facility] Kwan [place] [id number] Kwan [place] Notes Date Note Type Note Provider Name and Address Organization Details Recorded Time 3 text/html c/o back muscle pain the patient has had mid to low back pain, with radiation into the low back from the mid backthe patient reports muscle spasms with tightnessthe patient reports hard time walking due to the discomfortthe patient reports that it worsens with laying flat on his back or sitting up rightthe patient endorses that nothing has been particularly helpful denies bowel changes, urinary changes agreed to a three med treatment plan since he has had variable success in the past with just a MSK or just an anti-inflammatory DAVE BERGER [address] [place], [address], [facility] 04/10/2022 11:55:20 3 text/html f/u pancreatitis flare uptelemed phone callpt consents to phone call the patient is still having pain with his chronic pancreatitisthe patient is now having it radiate to his thoracic backnormal flare upagreed to up tizanidine dosagegiven one course for 7 days of tramadolis not allowed narcotics due to substance abuse hx and with his current medications DAVE BERGER [address] [place], [address], [facility] 08/13/2022 16:00:33 3 text/html c/o insomnia tele-med phone callpatient does not consents to phone call the patient is having trouble with sleepingthe patient is having trouble with staying asleepthe patient denies any changes in his health history has been on several medicationshesitant about ambien due to past drug use hx did concede to trial belsomra, only 7 days to promote healthy sleep and healthy sleep habitswill need to monitor his pancrease and liver functions as well due to current flare up from lack of sleep DAVE BERGER [address] [place], [address], [facility] 12/20/2022 11:49:08 4 text/html medication f/u The patient is participating in this appointment via telemedicine communication with a phone call/video calling service (Doxy)The patient consents to use of these platforms in place of an in-person appointment due to either sick symptoms the patient is presenting with or current office closure due to COVID exposure in order to keep our office staff and patients safe doing okayrecent GI appt with endoscopefound to have H. Pylori, started on treatmentdoes have a fu with them, they may repeat to endo or just do the breath test but theyll need to check for resolution of the infection went through med list with patienteverything he is not taking was cleared off and doses checked no other issuesrefill of tizanidine placed, pays out of pocket DAVE BERGER [address] [place], [address], [facility] 04/02/2023 11:08:20 5 text/html f/u gastroparesis and pancreatitis The patient is participating in this appointment via telemedicine communication with a phone call/video calling service (Doxy)The patient consents to use of these platforms in place of an in-person appointment due to either sick symptoms the patient is presenting with or current office closure due to COVID exposure in order to keep our office staff and patients safe patient was recently in hospital with [facility] for recurrent flare of pancreatitis and sepsiswas treated and released when patient was stableno new d/c meds on filereviewed med list with patient, old meds removed the patient med he was wondering about Journavx is not out in market yet, however will monitor when it is more public available, works as a sodium channel twin to block function of pain receptors instead will start on erythromycin and sucralfate for the gastroparesis given an alt anti inflammatory for pain relief in the meantime DAVE BERGER [address] [place] [address], [place], [address], [facility] 04/07/2024 14:24:31
--- OUTSIDE RECORDS SUMMARY | 2024-06-28 10:49 | XMS_ITS | Clinical Summary ---
Author Organization [facility] Address [address] [place] [address] Phone Care Team Providers Care Floor Cashier Name Role Phone Josh Velez DO Primary Care Provider [phone] Allergies No known active allergies Medications clonazePAM (KlonoPIN) 1 mg tablet Take 1 mg by mouth 2 times daily as needed. Active pancrelipase, Dvw-Dvfb-Ujaz, (CREON) 12,000-38,000 -60,000 unit capsule Take 3 Caps by mouth 3 times daily. Active methadone (DOLOPHINE) 10 mg tabletIndicatio ns:opioid use disorder Take 10.5 tablets (105 mg total) by mouth 1 (one) time each day at the same time. VERIFIED WITH N ON , LAST DOSED 06/02 Active hyoscyamine (ANASPAZ,LEVSIN ) 0.125 mg tablet Take 1 tablet (0.125 mg total) by mouth every 6 (six) hours if needed for cramping. Active tiZANidine (ZANAFLEX) 4 mg capsule Take 2 capsules (8 mg total) by mouth every 6 (six) hours if needed for muscle spasms. Active linaCLOtide (LINZESS) 290 mcg capsule Take 1 capsule (290 mcg total) by mouth 1 (one) time each day. Active ondansetron (ZOFRAN) 4 mg tablet Take 1 tablet (4 mg total) by mouth every 8 (eight) hours if needed for nausea or vomiting. Active celecoxib (CeleBREX) 200 mg capsule Take 1 capsule (200 mg total) by mouth 2 (two) times a day. Active busPIRone (BUSPAR) 15 mg tablet Take 1 tablet (15 mg total) by mouth 3 (three) times a day. Active polyethylene glycol (MIRALAX) 17 gram packet Take 17 g by mouth 1 (one) time each day if needed for constipation. 30 packet 5 Active naloxone (NARCAN) 4 mg/0.1 mL nasal sprayIndication s:opioid overdose,opioid -induced respiratory depression Administer 1 each (4 mg total) into affected nostril(s) if needed for opioid reversal or respiratory depression. Give 4 mg (1 spray) into one nostril. May repeat every 2-3 minutes if needed, alternating nostrils, until medical assistance becomes available. 2 each 5 026 Active doxepin (SINEquan) 10 mg capsule Take 3 capsules (30 mg total) by mouth at bedtime. 5 Active vilazodone (VIIBRYD) 20 mg tablet Take 1 tablet (20 mg total) by mouth 1 (one) time each day. Active prochlorperazin e (COMPAZINE) 10 mg tablet Take 1 tablet (10 mg total) by mouth 3 (three) times a day if needed for nausea. 20 tablet 5 025 Active furosemide (LASIX) 20 mg tablet Take 1 tablet (20 mg total) by mouth 1 (one) time each day for 5 days. 5 each 5 025 Active finasteride (PROPECIA) 1 mg tablet Take 1 mg by mouth daily. 025 Discontin ued(Thera py completed ) DULoxetine (Drizalma Sprinkle) 60 mg capsule, delayed rel sprinkle Take 60 mg by mouth daily. 025 Discontin ued(Thera py completed ) clonazePAM (KlonoPIN) 2 mg tablet Take 1 mg by mouth 2 (two) times a day. Max Daily Amount: 2 mg 025 Discontin ued(Thera py completed ) mineral oil liquid Take 15 mL by mouth 2 (two) times a day for 7 days. 210 mL 04/07/ 025 Discontin ued(Thera py completed ) Active Problems Problem Noted Date Diagnosed Date Acute cystitis with hematuria 06/23/2024 Hyperglycemia 06/23/2024 Elevated troponin 06/13/2024 Chronic pancreatitis, unspec ified pancreatitis type ([facility] V24, [facility] V28) 06/06/2024 Assessment & Plan (06/06/2024 5:03 AM EDT): - Known chronic pancreatitis from alcohol abuse, albeit has a sustained remission of alcohol abuse - Continue pain control; consider input of GI team in further evaluation of possible flareup of chronic pancreatitis Opioid abuse ([facility] V24, [facility] V28) 06/07/19 25 Assessment & Plan (06/06/2024 5:11 AM EDT): - Admits to regular fentanyl use which he acquired from the street; last use was 2 days ago - We reviewed the risks of continued opioid abuse and the health benefits of opioid free lifestyle - He does not appear as though he has made up his mind quitting substance abuse at this time - Low threshold for implementing opiate withdrawal monitoring Alcohol abuse, in remission 06/06/2024 Assessment & Plan (06/06/2024 5:06 AM EDT): - Known alcohol abuse but has achieved sustained remission since 2019, obviate presenting today to the ED with nausea and vomiting and epigastric discomfort - Vital signs showing tachycardia and elevated blood pressure water however for substance withdrawal, especially alcohol or benzo - Consider CIWA guided alcohol withdrawal monitoring should alcohol withdrawal scenario emerges Marijuana smoker, continuous 06/06/2024 Assessment & Plan (06/06/2024 5:05 AM EDT): - Daily marijuana smoker and we have reviewed the risk of continued marijuana smoking and the benefits of marijuana free lifestyle - I will address his questions regarding abstention Overweight (BMI 25.0-29.9) 01/23/2024 Cellulitis 12/05/2023 Depression 12/05/2023 Fatigue 12/05/2023 Pancreatitis 12/05/2023 Resolved Problems Problem Noted Date Diagnosed Date Resolved Date Nausea with vomiting 06/06/2024 025 Assessment & Plan (06/06/2024 5:02 AM EDT): - Being hospitalized for nausea and vomiting significant for pediatric abdominal pain of unclear etiology in the setting of known alcohol chronic pancreatitis - 33-year-old man with multiple medical problems including alcohol abuse in remission since 2019; active substance abuse including marijuana and opioids is being hospitalized - Brought to the ED for nausea and vomiting accompanied by epigastric abdominal discomfort similar to previous experience of acute flare of his chronic pancreatitis; no fever, chills, or diarrhea - In the ED, initial vital signs significant for elevated blood pressure and tachycardia, but afebrile and O2 sat 100% on room air; CBC significant for peripheral leukocytosis to WBC 16.7, normal H/H 14.3/45; comprehensive metabolic panel significant for mild hypokalemia 3.2, anion gap 17, BUN/creatinine 15/1.40 with an estimated GFR 60; serum lipase is less than 10 and lactate stable at 2.1 and 2.3 even after isotonic hydration; D-dimer returns less than 150; concerned about possible acute on chronic pancreatitis; hospital medicine was asked admit for this further evaluation and pain control - Would admit to hospital medicine for nausea and vomiting accompanied by epigastric abdominal pain of unclear etiology but worrisome for an acute on chronic pancreatitis in spite of normal lipase levels; pain control; isotonic hydration; bowel rest; consider involvement of GI team and general surgery Abdominal pain, acute, epigastric 06/06/2024 06/07/2024 Assessment & Plan (06/06/2024 5:04 AM EDT): - Epigastric abdominal pain accompanied by nausea and vomiting of unclear etiology but worrisome for acute on chronic pancreatitis - Achieved pain-free state in the ED at bedside and being hospitalized in further evaluation of stabilized pain control program - Consider GI consult Encounters Date Type Department Care Team Description 06/23/2024 10:13 PM EDT - 06/24/2024 2:49 AM EDT Emergency [facility] Emergency [address] [place] [address] Bilateral lower extremity edema (Primary Dx) Discharge Disposition: Home or Self Care 06/13/2024 8:05 PM EDT - 06/14/2024 5:06 PM EDT Hospital Encounter [facility] Intermediate Care Unit [address] [place] [phone] Vinicio Barnett MD Jones, Christopher, MD Japaridze, Anna, MD Pain (Primary Dx); Elevated troponin I level Discharge Disposition: Left Against Medical Advice 06/05/2024 6:22 PM EDT - 06/07/2024 2:51 PM EDT Hospital Encounter [facility] Care Unit [address] [place] [phone] Jono Sutherland MD Bell, Alistair A, MD Chronic pancreatitis, unspecified pancreatitis type ([facility] V24, [facility] V28) (Primary Dx); Narcotic withdrawal ([facility] V24, [facility] V28); Lactic acidosis; Intractable vomiting Discharge Disposition: Home or Self Care 05/09/2024 11:54 AM EDT - 05/09/2024 6:08 PM EDT Emergency [facility] Emergency [address] [place] [phone] Nick Medel MD Cheng, Ting Ho Danny, DO Acute kidney injury ([facility] V24) (Primary Dx); Encephalopathy acute Discharge Disposition: Home or Self Care from Last 3 Months Surgical History Surgery Date Site/Laterality Comments OTHER SURGICAL HISTORY PROCEDURE: DENIES PREVIOUS SURGERY Medical History Medical History Date Comments Pancreatitis Chronic Pancreat itis Depression DX:Depression Chronic alcoholic pancreatit is ([facility] V24, [facility] V28) History of alcohol abuse Reports Sobriety since 2019 Opioid abuse ([facility] V24, [facility] V28) On methadone / with use of nasal fentanyl Anxiety Gastroparesis Prolonged Q-T interval on ECG Family History Medical History Relation Name Comments Diabetes Other 1 Father's Side Hypertension Other 1 Father's Side Pancreatitis Other 2 Mother's side Relation Name Status Comments Mother Alive Other 1 Father's Side Other 2 Mother's side Alive Social History Tobacco Use Types Packs/Day Years Used Date Smoking Tobacco: Some Days Smokeless Tobacco: Never Tobacco Cessation:Ready to Q uit: Not Asked Comments:Current vape use with nicotine cartridges Alcohol Use Standard Drinks/Week Comments Not Currently 0 (1 standard drink = 0.6 oz pur e alcohol) Sober since 2019 Housing Instability Answer Date Recorde d Are [...] care for your loved ones. For example, child support officer or elderly care for an older adult? [...] Orientation Straight 06/13/2024 8: 13 PM EDT Obstetrics History Last Filed Vital Signs Vital Sign Reading [...] Mass Index 25.83 06/23/2024 7:20 PM EDT Plan of Treatment Health Maintenance Due Date Last Done Comments DTaP,Tdap,and Td Vaccines (1 - Tdap) 09/03/2007 Hepatitis A Vaccines (1 of 2 - Risk 2-dose series) 09/03/2007 Hepatitis B Vaccines (1 of 3 - 19+ 3-dose series) 09/03/2007 Pneumococcal Vaccine: Pediatrics (0 to 5 Years) and At-Risk Patients (6 to 64 Years) (1 of 2 - PCV) 09/03/2007 COVID-19 Vaccine (3 - 2023-2 5 season) 2023 06/14/2020, 05/20/2020 Cholesterol Screening (Lipid Panel) 06/05/2024 Depression Screening 06/05/2024 HIV Screening 06/05/2024 Medicare Annual Wellness Visit 06/05/2024 Influenza Vaccine (Season Ended) 2024 Social Influencers of Health Screening 06/06/2025 06/06/2024 Hepatitis C Screening Completed 06/14/2024 HIB Vaccines Aged Out No longer eligi ble based on patient's age to complete this topic HPV Vaccines Aged Out No longer eligi ble based on patient's age to complete this topic IPV Vaccines Aged Out No longer eligi ble based on patient's age to complete this topic MMR Vaccines Aged Out No longer eligi ble based on patient's age to complete this topic Meningococcal ACWY Vaccine Aged Out N o longer eligible based on patient's age to complete this topic Meningococcal B Vaccine Aged Out No l onger eligible based on patient's age to complete this topic RSV Immunization Patients Under 20 months Aged Out No longer eligible b ased on patient's age to complete this topic Varicella Vaccines Aged Out No longer eligible based on patient's age to complete this topic Procedures Procedure Name Priority Date/Time Associated Diagnosis Comments ECG ANNOTATED 06/25/2024 TROPONIN I HIGH SENSITIVITY STAT 06/24/2024 12:26 AM EDT XR CHEST 2 VIEWS STAT 06/23/2024 11:5 6 PM EDT COMPREHENSIVE METABOLIC PANEL STAT 06/23/2024 11:19 PM EDT CBC WITH AUTO DIFFERENTIAL STAT 06/23/2024 11:19 PM EDT TROPONIN I HIGH SENSITIVITY STAT 06/23/2024 11:19 PM EDT CBC AND DIFFERENTIAL STAT 06/23/2024 11:19 PM EDT MAGNESIUM STAT 06/23/2024 11:19 PM EDT B-TYPE NATRIURETIC PEPTIDE STAT 06/23/2024 11:19 PM EDT ECG 12-LEAD STAT 06/23/2024 10:22 PM EDT ECG ANNOTATED 06/15/2024 TRANSTHORACIC ECHOCARDIOGRAM (TTE) COMPLETE W/ CONTRAST Routine 06/14/2024 2:53 PM EDT Elevated troponin I level ECG 12-LEAD Routine 06/14/2024 9:42 AM EDT BUPRENORPHINE CONFIRMATION, URINE Routine 06/14/2024 5:19 AM EDT METHADONE CONFIRMATION, URINE Routine 06/14/2024 5:19 AM EDT AST, ALT, BILIRUBIN ELR STATE REPORTABLES Routine 06/14/2024 5:08 AM EDT HEPATITIS B SURFACE ANTIGEN CONFIRMATION Routine 06/14/2024 5:08 AM EDT CBC WITH AUTO DIFFERENTIAL Routine 06/14/2024 5:08 AM EDT HEPATITIS PANEL, ACUTE WITH REFLEX TO CONFIRMATION Routine 06/14/2024 5:08 AM EDT SEDIMENTATION RATE Routine 06/14/2024 5: 08 AM EDT CBC AND DIFFERENTIAL Routine 06/14/2024 5:08 AM EDT BASIC METABOLIC PANEL Routine 06/14/2024 5:08 AM EDT US ABDOMEN LIMITED Routine 06/14/2024 4: 04 AM EDT MRSA PCR Routine 06/14/2024 12:32 AM EDT RESPIRATORY VIRUS PANEL MOLECULAR STUDY Routine 06/14/2024 12:32 AM EDT CULTURE BLOOD STAT 06/13/2024 11:59 PM EDT CULTURE BLOOD STAT 06/13/2024 11:58 PM EDT BOWDEN URINE CULTURE TUBE STAT 06/13/2024 10:26 PM EDT URINALYSIS WITH REFLEX MICROSCOPIC AND CULTURE STAT 06/13/2024 10:26 PM EDT DRUG ABUSE SCREEN 8A PANEL, URINE STAT 06/13/2024 10:26 PM EDT URINALYSIS WITH REFLEX MICROSCOPIC AND CULTURE STAT 06/13/2024 10:[address] ANGIO CHEST WO AND/OR W CONTRAST STAT 06/13/2024 9:48 PM EDT Elevated troponin I level TROPONIN I HIGH SENSITIVITY STAT 06/13/2024 8:52 PM EDT ECG 12-LEAD STAT 06/13/2024 8:30 PM EDT XR CHEST 2 VIEWS STAT 06/13/2024 7:19 PM EDT URIC ACID STAT Add-on 06/13/2024 6:54 PM EDT C-REACTIVE PROTEIN Add-On 06/13/2024 6: 54 PM EDT ETHANOL STAT Add-on 06/13/2024 6:54 PM EDT PROCALCITONIN Add-On 06/13/2024 6:54 PM EDT CBC WITH AUTO DIFFERENTIAL STAT 06/13/2024 6:54 PM EDT B-TYPE NATRIURETIC PEPTIDE STAT 06/13/2024 6:54 PM EDT MAGNESIUM STAT 06/13/2024 6:54 PM EDT LIPASE STAT 06/13/2024 6:54 PM EDT COMPREHENSIVE METABOLIC PANEL STAT 06/13/2024 6:54 PM EDT CBC AND DIFFERENTIAL STAT 06/13/2024 6:54 PM EDT TROPONIN I HIGH SENSITIVITY STAT 06/13/2024 6:54 PM EDT VAS US DUPLEX LOWER EXT VENOUS LEFT STAT 06/13/2024 6:00 PM EDT Pain ECG 12-LEAD STAT 06/13/2024 5:15 PM EDT ECG 12-LEAD Routine 06/07/2024 9:20 AM EDT CULTURE BLOOD STAT 06/07/2024 7:43 AM EDT CBC WITH AUTO DIFFERENTIAL Routine 06/07/2024 5:23 AM EDT PHOSPHORUS Routine 06/07/2024 5:23 AM EDT CBC AND DIFFERENTIAL Routine 06/07/2024 5:23 AM EDT BASIC METABOLIC PANEL Routine 06/07/2024 5:23 AM EDT ECG ANNOTATED 06/07/2024 BOWDEN URINE CULTURE TUBE STAT 06/06/2024 5:30 PM EDT URINALYSIS WITH REFLEX MICROSCOPIC AND CULTURE STAT 06/06/2024 5:30 PM EDT URINALYSIS WITH REFLEX MICROSCOPIC AND CULTURE STAT 06/06/2024 5:30 PM EDT US ABDOMEN LIMITED Routine 06/06/2024 11 :23 AM EDT LAVENDER - EDTA Routine 06/06/2024 5:18 AM EDT SST - GOLD Routine 06/06/2024 5:18 AM EDT EXTRA TUBES Routine 06/06/2024 5:18 AM EDT LACTATE Routine 06/06/2024 5:18 AM EDT XR CHEST 2 VIEWS STAT 06/06/2024 2:38 AM EDT D-DIMER STAT 06/06/2024 2:09 AM EDT CULTURE BLOOD STAT 06/06/2024 1:20 AM EDT LACTATE, WITH REFLEX Timed 06/06/2024 12:51 AM EDT LACTATE, WITH REFLEX STAT 06/05/2024 9:[address] ABDOMEN PELVIS W CONTRAST STAT 06/05/2024 8:49 PM EDT ECG 12-LEAD STAT 06/05/2024 8:35 PM EDT ETHANOL Add-On 06/05/2024 6:57 PM EDT CBC WITH AUTO DIFFERENTIAL STAT 06/05/2024 6:57 PM EDT LIPASE STAT 06/05/2024 6:57 PM EDT MAGNESIUM STAT 06/05/2024 6:57 PM EDT COMPREHENSIVE METABOLIC PANEL STAT 06/05/2024 6:57 PM EDT CBC AND DIFFERENTIAL STAT 06/05/2024 6:57 PM EDT ECG ANNOTATED 05/10/2024 ECG OUTSIDE 05/10/2024 ECG OUTSIDE 05/10/2024 CT HEAD WO CONTRAST STAT 05/09/2024 3 :48 PM EDT TROPONIN I HIGH SENSITIVITY STAT 05/09/2024 3:39 PM EDT ECG 12-LEAD STAT 05/09/2024 3:33 PM EDT VENOUS BLOOD GAS STAT 05/09/2024 3:31 PM EDT LACTATE STAT 05/09/2024 3:22 PM EDT CREATINE KINASE Add-On 05/09/2024 12:40 PM EDT THYROID STIMULATING HORMONE STAT 05/09/2024 12:40 PM EDT CBC WITH AUTO DIFFERENTIAL STAT 05/09/2024 12:40 PM EDT SALICYLATE LEVEL STAT 05/09/2024 12:4 0 PM EDT ACETAMINOPHEN LEVEL STAT 05/09/2024 1 2:40 PM EDT ETHANOL STAT 05/09/2024 12:40 PM EDT COMPREHENSIVE METABOLIC PANEL STAT 05/09/2024 12:40 PM EDT CBC AND DIFFERENTIAL STAT 05/09/2024 12:40 PM EDT ECG 12-LEAD STAT 05/09/2024 12:01 PM EDT from Last 3 Months Results * ECG-Annotated (06/25/2024) Only the most recent of4 resultswithin the time period is included. us Provider Onbase MD ECG ORDERABLES Final Result * Troponin I high sensitivity (06/24/2024 12:26 AM EDT) Only the most recent of5 resultswithin the time period is included. High Sensitivity Troponin I 12 <=79 ng/L LAB CHEMISTRY METHOD 06/24/2024 2:18 AM EDT [facility] Blood Venous blood specimen / Unknown Venipuncture / Unknown 06/24/2024 12:26 AM EDT 06/24/2024 1:38 AM EDT Narrative [facility] - 06/24/2024 2:18 AM EDT High levels of biotin in samples may falsely decrease hsTroponin values. ??Use caution when interpreting hsTroponin results in patients taking biotin who exhibit renal impairment (eGFR <60) or in patients taking more than 20 mg/day of biotin. us Bart [facility] LAB BLOOD ORDERABLES Huma l Result [facility] [address] [place] [address], * XR Chest 2 Views (06/23/2024 11:56 PM EDT) Only the most recent of3 resultswithin the time period is included. Anatomical Region Laterality Modality Body Radiographic Soumya ging 06/24/2024 8:05 AM EDT Impressions 06/24/2024 8:05 AM EDT No acute findings. -------- FINAL REPORT -------- Dictated By: Clovis Wagner Dictated Date: 06/24/2024 08:05 ET Assigned Physician: Clovis Wagner Reviewed and Electronically Signed By: Clovis Wagner Signed Date: 06/24/2024 08:05 ET Workstation ID: [id number] Transcribed By: Self Edit Transcribed Date: 06/24/2024 [...] Signed Date: 06/24/2024 08:05 ET Workstation ID: [id number] Transcribed By: Self Edit Transcribed Date: 06/24/2024 08:05 ET us Bart [facility] IMG XR PROCEDURES Final R esult * (ABNORMAL) CBC auto differential (06/23/2024 11:19 PM EDT) Only the most recent of6 resultswithin the time period is included. WBC 9.2 4.8 - 10.8 K/mcL LAB HEMETOLOGY METHOD 06/23/2024 11:49 PM EDT [facility] RBC 4.40(L) 4.50 - 5.50 M/mcL LAB HEMETOLOGY METHOD 06/23/2024 11:49 [facility] Hemoglobin 12.5(L) 13.5 - 17.5 g/dL LAB HEMETOLOGY METHOD 06/23/2024 11:49 PM [facility] Hematocrit 39.2(L) 42.0 - 54.0 % LAB HEMETOLOGY METHOD 06/23/2024 11:49 [facility] MCV 89.7 79.0 - 98.0 FL LAB HEMETOLOGY METHOD 06/23/2024 11:49 PM [facility] MCH 28.6 27.0 - 32.0 pcg LAB HEMETOLOGY METHOD 06/23/2024 11:49 PM [facility] MCHC 31.9(L) 32.0 - 37.0 g/dL LAB HEMETOLOGY METHOD 06/23/2024 11:49 PM [facility] RDW 15.3(H) 11.0 - 15.0 % LAB HEMETOLOGY METHOD 06/23/2024 11:49 PM [facility] Platelets 277 130 - 400 K/mcL LAB HEMETOLOGY METHOD 06/23/2024 11:49 PM [facility] MPV 12.4(H) 7.0 - 11.0 FL LAB HEMETOLOGY METHOD 06/23/2024 11:49 PM [facility] NRBC 0.0 <1.0 % LAB HEMETOLOGY METHOD 06/23/2024 11:49 PM [facility] NRBC Absolute 0.00 <0.10 K/mcL LAB HEMETOLOGY METHOD 06/23/2024 11:49 PM [facility] Neutrophils Relative 62.2 % LAB HEMETOLOGY METHOD 06/23/2024 11:49 PM [facility] Lymphocytes Relative 28.1 % LAB HEMETOLOGY METHOD 06/23/2024 11:49 PM [facility] Monocytes Relative 9.0 % LAB HEMETOLOGY METHOD 06/23/2024 11:49 PM [facility] Eosinophils Relative 0.1 % LAB HEMETOLOGY METHOD 06/23/2024 11:49 PM [facility] Basophils Relative 0.4 % LAB HEMETOLOGY METHOD 06/23/2024 11:49 PM [facility] Immature Granulocytes Relative 0.2 % LAB HEMETOLOGY METHOD 06/23/2024 11:49 PM [facility] Neutrophils Absolute 5.69 1.50 - 7.00 K/mcL LAB HEMETOLOGY METHOD 06/23/2024 11:49 PM [facility] Lymphocytes Absolute 2.57 1.00 - 5.00 K/mcL LAB HEMETOLOGY METHOD 06/23/2024 11:49 PM [facility] Monocytes Absolute 0.82 0.20 - 1.00 K/mcL LAB HEMETOLOGY METHOD 06/23/2024 11:49 PM [facility] Eosinophils Absolute 0.01 0.00 - 0.50 K/mcL LAB HEMETOLOGY METHOD 06/23/2024 11:49 PM [facility] Basophils Absolute 0.04 0.00 - 0.20 K/[facility] LAB HEMETOLOGY METHOD 06/23/2024 11:49 PM EDT [facility] Immature Granulocytes Absolute 0.02 0.00 - 0.03 K/[facility] LAB HEMETOLOGY METHOD 06/23/2024 11:49 PM EDT [facility] Blood Venous blood specimen / Unknown Venipuncture / Unknown 06/23/2024 11:19 PM EDT 06/23/2024 11:42 PM EDT Bart [facility] LAB BLOOD ORDERABLES Huma l Result Performing Organization Address City/[facility]/ZIP Co de Phone Number [facility] [address] [place] [address], [place] [phone] * B-type natriuretic peptide (06/23/2024 11:19 PM EDT) Only the most recent of2 resultswithin the time period is included. BNP 29 <=100 pcg/mL LAB CHEMISTRY METHOD 06/24/2024 12:15 AM EDT [facility] Blood Venous blood specimen / Unknown Venipuncture / Unknown 06/23/2024 11:19 PM EDT 06/23/2024 11:42 PM EDT [facility] LAB BLOOD ORDERABLES Huma l Result Performing Organization Address City/[facility]/ZIP Co de Phone Number [facility] [address] [place] [address], [place] [phone] * Magnesium (06/23/2024 11:19 PM EDT) Only the most recent of3 resultswithin the time period is included. Magnesium 2.0 1.9 - 2.6 mg/dL LAB CHEMISTRY METHOD 06/24/2024 12:22 AM EDT [facility] Comment:Hemolysis present Blood Venous blood specimen / Unknown Venipuncture / Unknown 06/23/2024 11:19 PM EDT 06/23/2024 11:42 PM EDT us Bart [facility] LAB BLOOD ORDERABLES Huma gabbie Result [facility] [address] [place] [address], [place] [phone] * (ABNORMAL) Comprehensive metabolic panel (06/23/2024 11:19 PM EDT) Only the most recent of4 resultswithin the time period is included. Sodium 143 133 - 145 mmol/L LAB CHEMISTRY METHOD 06/24/2024 12:22 AM [facility] Potassium 4.0 3.5 - 5.5 mmol/L LAB CHEMISTRY METHOD 06/24/2024 12:22 AM [facility] Comment:Hemolysis present Chloride 109 96 - 110 mmol/L LAB CHEMISTRY METHOD 06/24/2024 12:22 AM [facility] CO2 26 21 - 32 mmol/L LAB CHEMISTRY METHOD 06/24/2024 12:22 AM [facility] Anion Gap 8 3 - 11 LAB CHEMISTRY METHOD 06/24/2024 12:22 AM [facility] Glucose 117(H) 70 - 100 mg/dL LAB CHEMISTRY METHOD 06/24/2024 12:22 AM [facility] BUN 23 5 - 25 mg/dL LAB CHEMISTRY METHOD 06/24/2024 12:22 AM [facility] Creatinine 1.07 0.70 - 1.30 mg/dL LAB CHEMISTRY METHOD 06/24/2024 12:22 AM [facility] eGFR 93 >=60 mL/min/1. 73m2 LAB CHEMISTRY METHOD 06/24/2024 12:22 AM [facility] Comment:Calculation based on the??Chronic Kidney Disease Epidemiology Collaboration (CKD-EPI) equation refit??without adjustment for race. BUN/Creatinine Ratio 21.5 LAB CHEMISTRY METHOD 06/24/2024 12:22 AM [facility] Calcium 9.3 8.5 - 10.5 mg/dL LAB CHEMISTRY METHOD 06/24/2024 12:22 AM [facility] AST (SGOT) 49(H) 10 - 42 unit/L LAB CHEMISTRY METHOD 06/24/2024 12:22 AM [facility] Comment:Hemolysis present ALT (SGPT) 32 10 - 60 unit/L LAB CHEMISTRY METHOD 06/24/2024 12:22 AM [facility] Alkaline Phosphatase 73 42 - 121 unit/L LAB CHEMISTRY METHOD 06/24/2024 12:22 AM [facility] Total Protein 7.6 6.0 - 8.0 g/dL LAB CHEMISTRY METHOD 06/24/2024 12:22 AM [facility] Albumin 3.9 3.2 - 5.0 g/dL LAB CHEMISTRY METHOD 06/24/2024 12:22 AM [facility] Total Bilirubin 0.4 0.0 - 1.4 mg/dL LAB CHEMISTRY METHOD 06/24/2024 12:22 AM [facility] [facility] Blood Venous blood specimen / Unknown Venipuncture / Unknown 06/23/2024 11:19 PM EDT 06/23/2024 11:42 PM EDT us Bart [facility] BLOOD ORDERABLES Huma l Result [facility] [address] [place] [address], * ECG 12 lead (06/23/2024 10:22 PM EDT) Only the most recent of8 resultswithin the time period is included. Ventricular Rate ECG 107 BPM GEMUSE Atrial Rate 107 BPM GEMUSE P-R Interval 168 ms GEMUSE QRS Duration 80 ms GEMUSE Q-T Interval 314 ms GEMUSE QTc 419 ms GEMUSE P Wave Mchenry 59 degrees GEMUSE R Mchenry 44 degrees GEMUSE T Mchenry 74 degrees GEMUSE ECG Interpretation Sinus tachycardia Possible Left atrial enlargement Borderline ECG When compared with ECG of 14-JUN-2024 09:42, No significant change was found Confirmed by Lu HENDRICKS YUFENG ([id number]) on 06/24/2024 12:54:49 PM GEMUSE 06/23/2024 10:2 2 PM EDT 06/24/2024 12:54 PM EDT us Bart ACOSTA ECG ORDERABLES Final Res ult GEMUSE * TRANSTHORACIC ECHOCARDIOGRAM (TTE) COMPLETE W/ CONTRAST (06/14/2024 2:53 PM EDT) Left Atrium Minor Mchenry 5.1 cm CV PACS Left Atrium Major Mchenry 5.1 cm CV PACS LA Area Sys (A2C) 19 cm2 CV PACS LA Area Sys (A4C) 19 cm2 CV PACS LA Volume (BP) 54 mL CV PACS RA Area 16.1 cm2 CV PACS RA 2D Volume 39 mL CV PACS AV Mean Gradient 4 mmHg CV PACS Ao VTI 21.9 cm CV PACS AV Peak Anders 1.3 m/s CV PACS AV Peak Gradient 7 mmHg CV PACS AV Area Continuity Equation 3.6 cm2 CV PACS AV Area Peak Velocity 3.6 cm2 CV PACS Aortic Sinus Valsalva 3.8 cm CV PACS Ascending Aorta 3.5 cm CV PACS IVC Proximal 1.2 cm CV PACS IVSD 0.9 0.6 - 1.0 cm CV PACS LVIDD 4.8 4.2 - 5.8 cm CV PACS LVIDS 2.8 2.5 - 4.0 cm CV PACS LVOT Diameter 2.2 cm CV PACS LVOT Mean Anders 0.9 m/s CV PACS LVOT Mean Grad 4 mmHg CV PACS LVOT Peak VTI 20.8 cm CV PACS LVOT Peak Anders 1.3 m/s CV PACS LVOT Peak Gradient 6 mmHg CV PACS LVPWD 0.9 0.6 - 1.0 cm CV PACS MV E' Tissue Velocity Lateral 17 cm/s CV PACS LVOT Area 3.8 cm2 CV PACS LVOT Stroke Volume 79 mL CV PACS MV Deceleration [place] 6.1 m/s2 CV PACS E Wave Deceleration Time 150 119 - 242 ms CV PACS MV PHT 44 ms CV PACS MV Peak A Anders 0.82 m/s CV PACS MV Peak E Anders 0.91 m/s CV PACS MV Area PHT 5.0 cm2 CV PACS PV Acceleration Time 137 ms CV PACS PV Peak Velocity 1.1 m/s CV PACS PV Peak Gradient 5 mmHg CV PACS RV Diastolic Basal Dimension 3.4 2.5 - 4.1 cm CV PACS RV S' 19 cm/s CV PACS TAPSE 24 mm CV PACS LVOT Stroke Index 40 mL/m2 CV PACS Relative Wall Thickness ratio 0.38 CV PACS LVOT:AV VTI Index 0.95 CV PACS FS 42 % CV PACS LV Mass 2D 148 g CV PACS Ascending Aorta Index 1.75 cm/m2 CV PACS LVOT flow 342 mL/s CV PACS RA 2D Volume Index 20 mL/m2 CV PACS YOHAN Index (VTI) 1.80 cm2/m2 CV PACS YOHAN Index (Pk Anders) 1.80 cm2/m2 CV PACS LVIDD Index 2.40 cm/m2 CV PACS LVIDS Index 1.40 cm/m2 CV PACS AV Velocity Ratio 1.00 CV PACS E/A Ratio 1.1 CV PACS E/E' Ratio Lateral 5 CV PACS LA Volume Index (BP) 27 mL/m2 CV PACS LV Mass Index 2D 74 g/m2 CV PACS BSA 2.01 m2 CV PACS Est. RA Pressure 3 mmHg CV PACS Anatomical Region Laterality Modality Ultrasound Narrative 06/14/2024 3:22 PM EDT ?Left ventricle cavity size is normal. Left ventricular systolic function is in the normal range with an ejection fraction of 60-65%. ?No regional LV wall motion abnormalities noted. ?Left ventricle wall thickness is normal. ?Right ventricle cavity is normal. Right ventricular systolic function is normal. ?There was trace mitral insufficiency. ??There is trace tricuspid insufficiency. ??Cannot assess RV systolic pressure. ??And there is trace pulmonic valve regurgitation. ??The right atrial pressure is estimated to be normal at about 3 mmHg. ?In summary this is a normal echocardiogram. ??No prior echo for comparison. Left Ventricle Left ventricle cavity size is normal. Wall thickness is normal. Systolic function is normal with an ejection fraction of 60-65%. There are no regional LV wall motion abnormalities. There is no diastolic dysfunction. Right Ventricle Right ventricle cavity appears normal. Systolic function is normal. Left Atrium Left atrium volume index is normal. Right Atrium Right atrium cavity is normal. IVC/SVC RA pressures is estimated to be 3 mmHg (IVC diameter <21 mm and decreases >50% during inspiration). Mitral Valve The leaflets exhibit normal excursion. There is trace regurgitation. There is no evidence of mitral valve stenosis. Tricuspid Valve The leaflets exhibit normal excursion. There is trace regurgitation. There is no evidence of tricuspid valve stenosis. Cannot assess RVSP. Aortic Valve The aortic valve is trileaflet. There is no regurgitation or stenosis. Pulmonic Valve Visualized portions of the pulmonic valve appear normal. There is trace pulmonic valve regurgitation. There is no evidence of pulmonic valve stenosis. Ascending Aorta The aorta appears normal in size. Pericardium Pericardium appears normal. Study Details Overall the study quality was adequate. Definity contrast was given to enhance imaging. Study was difficult due to: poor endocardial visualization. us Clarice ACOSTA CV ECHO PROCEDURES Final Result * Methadone confirmation, urine (06/14/2024 5:19 AM EDT) Methadone Confirm Urine 46999 ng/mL 06/17/2024 12:57 AM EDT [facility] EDDP Confirm, Urine 63976 ng/mL 06/17 12:57 AM EDT [facility] Creatinine 47 20 - 250 mg/dL 06/17/2024 12:57 AM EDT [facility] Adulterants Negative 06/17/2024 12:57 AM EDT [facility] Comment: ? Confirmation (GC/MS) Decision Limits ?Methadone ? 100 ng/mL ?EDDP (Methadone Metabolite) ? 100 ng/mL ??Adulterant Decision Limit: ? General Oxidants ? 200 ug/mL ?The adulterant assay tests for General Oxidants, ??including Chromates and Nitrites. ??Adulterants are ??substances either ingested or added directly to a ??urine specimen to prevent the detection of drug use. If applicable, any drug confirmation testing reported here was developed and the performance characteristics determined by [facility]. This confirmation testing has not been cleared or approved by the FDA. The laboratory is regulated under CLIA as qualified to perform high-complexity testing. This test is used for patient testing purposes. It should not be regarded as investigational or for research. Test performed at [facility], [address] , [place], [place] ??[address] ? [phone] Rosalba Hall MD, PhD - Child Support Officer Urine Urine specimen from urethra / Unknown Non-blood Collection / Unknown 06/14/2024 5:19 AM EDT 06/14/2024 5:42 AM EDT us Clarice [facility] URINE ORDERABLES Final Resu lt [facility] [address] [place] [address] * Buprenorphine confirmation, urine (06/14/2024 5:19 AM EDT) Pathologist [facility] Buprenorphine Confirm, Urine Negative ng/mL 06/17/2024 12:57 AM EDT [facility] Norbuprenorphine Confirm, Urine Negative ng/mL 06/17/2024 12:57 AM EDT [facility] Creatinine 47 20 - 250 mg/dL 06/17/2024 12:57 AM EDT [facility] Adulterants Negative 06/17/2024 12:57 AM EDT [facility] Comment: ? Confirmation (LC/MS/MS) Decision Limits ?Buprenorphine ? 5 ng/mL ?Norbuprenorphine ?5 ng/mL ??Adulterant Decision Limit: ? General Oxidants ? 200 ug/mL ?The adulterant assay tests for General Oxidants, ??including Chromates and Nitrites. ??Adulterants are ??substances either ingested or added directly to a ??urine specimen to prevent the detection of drug use. If applicable, any drug confirmation testing reported here was developed and the performance characteristics determined by [facility]. This confirmation testing has not been cleared or approved by the FDA. The laboratory is regulated under CLIA as qualified to perform high-complexity testing. This test is used for patient testing purposes. It should not be regarded as investigational or for research. Test performed at [facility], [address] [place], [place] ??[address] ? [phone] Rosalba Hall MD, PhD - Child Support Officer Urine Urine specimen from urethra / Unknown Non-blood Collection / Unknown 06/14/2024 5:19 AM EDT 06/14/2024 5:42 AM EDT us Clarice [facility] URINE ORDERABLES Final Resu lt [facility] [address] [place] [address] * Hepatitis B surface antigen confirmation (06/14/2024 5:08 AM EDT) Hep B Surface Ag Confirmation Not Confirmed Not Confirmed LAB CHEMISTRY METHOD 06/14/2024 1:51 PM EDT [facility] Comment:Not confirmed indica nghia that the positive HBsAg result may be a false positive. Suggest retest if clinically indicated. Blood Venous blood specimen / Unknown Venipuncture / Unknown 06/14/2024 5:08 AM EDT 06/14/2024 5:13 AM EDT Clarice [facility]COSTA [facility] BLOOD ORDERABLES Final Resu lt [facility] [address] [place] [address], [place] [phone] * (ABNORMAL) AST, ALT, Bilirubin ELR state reportables (06/14/2024 5:08 AM EDT) ALT (SGPT) 38 10 - 60 unit/L LAB CHEMISTRY METHOD 06/14/2024 10:39 AM EDT [facility] AST (SGOT) 88(H) 10 - 42 unit/L LAB CHEMISTRY METHOD 06/14/2024 10:39 AM EDT [facility] Total Bilirubin 0.4 0.0 - 1.4 mg/dL LAB CHEMISTRY METHOD 06/14/2024 10:39 AM EDT [facility] Platelets 172 K/mcL LAB HEMETOLOGY METHOD 06/14/2024 10:39 AM EDT [facility] Blood Venous blood specimen / Unknown Venipuncture / Unknown 06/14/2024 5:08 AM EDT 06/14/2024 5:13 AM EDT Clarice ACOSTA LAB BLOOD ORDERABLES Final Resu lt [facility] [address] [place] [address], [place] [phone] * (ABNORMAL) Hepatitis panel, acute with reflex to confirmation (06/14/2024 5:08 AM EDT) Pathologist [facility] Hepatitis B Surface Ag Positive(A) Negative LAB CHEMISTRY METHOD 06/14/2024 10:36 AM EDT [facility] Hepatitis A Antibody IgM Negative Negative LAB CHEMISTRY METHOD 06/14/2024 10:36 AM EDT [facility] Hep B Core IgM Negative Negative LAB CHEMISTRY METHOD 06/14/2024 10:36 AM EDT [facility] Hepatitis C Antibody Negative Negative LAB CHEMISTRY METHOD 06/14/2024 10:36 AM EDT [facility] Blood Venous blood specimen / Unknown Venipuncture / Unknown 06/14/2024 5:08 AM EDT 06/14/2024 5:13 AM EDT Clarice ACOSTA LAB BLOOD ORDERABLES Final Resu lt Performing Organization Address [facility]/ZIP Co de Phone Number [facility] [address] [place] [address], [place] [phone] * (ABNORMAL) Sedimentation rate (06/14/2024 5:08 AM EDT) Sed Rate 25(H) 0 - 15 mm/hr LAB HEMETOLOGY METHOD 06/14/2024 5:57 AM EDT [facility] Blood Venous blood specimen / Unknown Venipuncture / Unknown 06/14/2024 5:08 AM EDT 06/14/2024 5:13 AM EDT us Clarice ACOSTA LAB BLOOD ORDERABLES Final Resu lt Performing Organization Address [facility]/ZIP Co de Phone Number [facility] [address] [place] [address], [place] [phone] * Basic metabolic panel (06/14/2024 5:08 AM EDT) Only the most recent of2 resultswithin the time period is included. Sodium 139 133 - 145 mmol/L LAB CHEMISTRY METHOD 06/14/2024 6:03 AM EDT [facility] Potassium 3.8 3.5 - 5.5 mmol/L LAB CHEMISTRY METHOD 06/14/2024 6:03 AM EDT [facility] Chloride 108 96 - 110 mmol/L LAB CHEMISTRY METHOD 06/14/2024 6:03 AM [facility] CO2 27 21 - 32 mmol/L LAB CHEMISTRY METHOD 06/14/2024 6:03 AM [facility] Anion Gap 4 3 - 11 LAB CHEMISTRY METHOD 06/14/2024 6:03 AM [facility] Glucose 81 70 - 100 mg/dL LAB CHEMISTRY METHOD 06/14/2024 6:03 AM [facility] BUN 14 5 - 25 mg/dL LAB CHEMISTRY METHOD 06/14/2024 6:03 AM [facility] Creatinine 1.01 0.70 - 1.30 mg/dL LAB CHEMISTRY METHOD 06/14/2024 6:03 AM [facility] eGFR 99 >=60 mL/min/1. 73m2 LAB CHEMISTRY METHOD 06/14/2024 6:03 AM [facility] Comment:Calculation based on the??Chronic Kidney Disease Epidemiology Collaboration (CKD-EPI) equation refit??without adjustment for race. BUN/Creatinine Ratio 13.9 LAB CHEMISTRY METHOD 06/14/2024 6:03 AM [facility] Calcium 8.5 8.5 - 10.5 mg/dL LAB CHEMISTRY METHOD 06/14/2024 6:03 AM [facility] Blood Venous blood specimen / Unknown Venipuncture / Unknown 06/14/2024 5:08 AM EDT 06/14/2024 5:13 AM EDT us Chicho Baron MD LAB BLOOD ORDERABLES Final Result [facility] [address] [place] [address], * US Abdomen Limited (06/14/2024 4:04 AM EDT) Only the most recent of2 resultswithin the time period is included. Anatomical Region Laterality Modality Body Ultrasound 06/14/2024 4:52 AM EDT Impressions 06/14/2024 4:52 AM EDT Dilated CBD with sludge and mild wall thickening. Although no gallstones are identified, developing cholecystitis is not excluded. If concern persists consider HIDA scan as well attention on follow-up. This document has been electronically signed by: Clovis Odonnell MD on 06/14/2024 04:52:05 Narrative 06/14/2024 4:52 AM EDT INDICATION: ? cirrhosis US abdomen limited Comparison: None Findings: The majority of the pancreas is obscured from visualization by the overlying bowel gas. Hepatomegaly with steatosis measuring 18.8 cm. There is no intrahepatic bile duct dilatation. The common duct measures up to 9 mm in diameter, dilated for age. No obvious choledocholithiasis. Gallbladder sludge with mild wall thickening measuring 3 mm. No obvious gallstones. There is no sonographic Sears sign. The main portal vein is antegrade. The right kidney is 11.5 cm in length. No ascites. Procedure Note Clovis Odonnell MD - 06/14/2024 INDICATION: ? cirrhosis US abdomen limited Comparison: None Findings: The majority of the pancreas is obscured from visualization by the overlying bowel gas. Hepatomegaly with steatosis measuring 18.8 cm. There is no intrahepatic bile duct dilatation. The common duct measures up to 9 mm in diameter, dilated for age. No obvious choledocholithiasis. Gallbladder sludge with mild wall thickening measuring 3 mm. No obvious gallstones. There is no sonographic Sears sign. The main portal vein is antegrade. The right kidney is 11.5 cm in length. No ascites. IMPRESSION: Dilated CBD with sludge and mild wall thickening. Although no gallstones are identified, developing cholecystitis is not excluded. If concern persists consider HIDA scan as well attention on follow-up. This document has been electronically signed by: Clovis Odonnell MD on 06/14/2024 04:52:05 Clarice ACOSTA IMM[place] US PROCEDURES Final Result * Respiratory virus panel molecular study (06/14/2024 12:32 AM EDT) Adenovirus Detection by PCR Not Detected Not Detected LAB MICROBIOLOGY METHOD 06/14/2024 3:08 AM EDT [facility] Influenza A PCR Not Detected Not Detected LAB MICROBIOLOGY METHOD 06/14/2024 3:08 AM EDT [facility] Influenza B PCR Not Detected Not Detected LAB MICROBIOLOGY METHOD 06/14/2024 3:08 AM EDT [facility] Coronavirus 229E Not Detected Not Detected LAB MICROBIOLOGY METHOD 06/14/2024 3:08 AM EDT [facility] Coronavirus HKU1 Not Detected Not Detected LAB MICROBIOLOGY METHOD 06/14/2024 3:08 AM EDT [facility] Coronavirus OC43 Not Detected Not Detected LAB MICROBIOLOGY METHOD 06/14/2024 3:08 AM EDT [facility] Coronavirus NL63 Not Detected Not Detected LAB MICROBIOLOGY METHOD 06/14/2024 3:08 AM EDT [facility] Parainfluenza Virus 1 Not Detected Not Detected LAB MICROBIOLOGY METHOD 06/14/2024 3:08 AM EDT [facility] Parainfluenza Virus 2 Not Detected Not Detected LAB MICROBIOLOGY METHOD 06/14/2024 3:08 AM EDT [facility] Parainfluenza Virus 3 Not Detected Not Detected LAB MICROBIOLOGY METHOD 06/14/2024 3:08 AM EDT [facility] Parainfluenza Virus 4 Not Detected Not Detected LAB MICROBIOLOGY METHOD 06/14/2024 3:08 AM EDT [facility] RSV PCR Not Detected Not Detected LAB MICROBIOLOGY METHOD 06/14/2024 3:08 AM EDT [facility] Human Metapneumovirus A and B Not Detected Not Detected LAB MICROBIOLOGY METHOD 06/14/2024 3:08 AM EDT [facility] Rhinovirus/Entero virus Not Detected Not Detected LAB MICROBIOLOGY METHOD 06/14/2024 3:08 AM EDT [facility] Bordetella pertussis Not Detected Not Detected LAB MICROBIOLOGY METHOD 06/14/2024 3:08 AM EDT [facility] Bordetella parapertussis Not Detected Not Detected LAB MICROBIOLOGY METHOD 06/14/2024 3:08 AM EDT [facility] Mycoplasma pneumo by PCR Not Detected Not Detected LAB MICROBIOLOGY METHOD 06/14/2024 3:08 AM EDT [facility] Chlamydia pneumoniae Not Detected Not Detected LAB MICROBIOLOGY METHOD 06/14/2024 3:08 AM EDT [facility] SARS COV-2 Not Detected Not Detected LAB MICROBIOLOGY METHOD 06/14/2024 3:08 AM EDT [facility] Swab Both anterior nares / Unknown Non-blood Collection / Unknown 06/14/2024 12:32 AM EDT 06/14/2024 2:10 AM EDT Narrative [facility] - 06/14/2024 3:08 AM EDT Testing was performed using the [employer] Respiratory Pathogen PCR Assay. All results must be correlated with the clinical findings. Results should not be used as the sole basis for diagnosis. False Negative results may occur from the presence of sequence variants in the region targeted by the assay or the presence of inhibitors. Results may be affected by concurrent antiviral/antimicrobial therapy or levels of organisms that are below the limit of detection. Clarice ACOSTA LAB MICROBIOLOGY - GENERAL CHRIS PATTEN Final Result [facility] [address] [place] [address], * MRSA molecular study (06/14/2024 12:32 AM EDT) [facility] MRSA Screen PCR Not Detected Not Detected LAB MICROBIOLOGY METHOD 06/14/2024 9:03 AM EDT [facility] Swab Both anterior nares / Unknown Non-blood Collection / Unknown 06/14/2024 12:32 AM EDT 06/14/2024 2:10 AM EDT Clarice ACOSTA LAB MICROBIOLOGY - GENERAL ORDToro PATTEN Final Result Performing Organization Address [facility]/ZIP Co de Phone Number [facility] [address] [place] [address], [place] [phone] * Blood Culture, Peripheral Draw #2 (06/13/2024 11:59 PM EDT) Only the most recent of4 resultswithin the time period is included. [facility] Culture, Blood No growth at 5 days 06/19/2024 5:02 AM EDT [facility] Blood Venous blood specimen / Unknown Venipuncture / Unknown 06/13/2024 11:59 PM EDT 06/14/2024 12:02 AM EDT Chicho Baron MD LAB MICROBIOLOGY - GENERAL ORDERABLES Final Result Performing Organization Address [facility]/ZIP Co de Phone Number [facility] [address] [place] [address], [place] [phone] * (ABNORMAL) Urinalysis with reflex microscopic and culture (06/13/2024 10:26 PM EDT) Only the most recent of2 resultswithin the time period is included. [facility] Specific Walton Urine 1.031(H) 1.003 - 1.030 LAB URINALYSIS - AUTOMATED METHOD 06/13/2024 11:24 PM EDT [facility] pH, Urine 5.5 5.0 - 8.0 pH LAB URINALYSIS - AUTOMATED METHOD 06/13/2024 11:24 PM EDT [facility] Leukocytes, Urine Negative Negative LAB URINALYSIS - AUTOMATED METHOD 06/13/2024 11:24 PM EDT [facility] Nitrite, Urine Negative Negative LAB URINALYSIS - AUTOMATED METHOD 06/13/2024 11:24 PM EDT [facility] Protein, Urine Trace <=Trace mg/dL LAB URINALYSIS - AUTOMATED METHOD 06/13/2024 11:24 PM [facility] Glucose, Urine Negative Negative mg/dL LAB URINALYSIS - AUTOMATED METHOD 06/13/2024 11:24 PM [facility] Ketones, Urine Trace(A) Negative mg/dL LAB URINALYSIS - AUTOMATED METHOD 06/13/2024 11:24 PM [facility] Urobilinogen, Urine 1.0 0.2 - 1.0 mg/dL LAB URINALYSIS - AUTOMATED METHOD 06/13/2024 11:24 PM [facility] Bilirubin, Urine Negative Negative LAB URINALYSIS - AUTOMATED METHOD 06/13/2024 11:24 PM [facility] Blood, Urine Small(A) Negative LAB URINALYSIS - AUTOMATED METHOD 06/13/2024 11:24 PM [facility] RBC, Urine 10(H) 0 - 4 /HPF LAB URINALYSIS - AUTOMATED METHOD 06/13/2024 11:24 PM [facility] WBC, Urine 4 0 - 4 /HPF LAB URINALYSIS - AUTOMATED METHOD 06/13/2024 11:24 PM [facility] Squamous Epithelial, Urine 25 0 - 60 /LPF LAB URINALYSIS - AUTOMATED METHOD 06/13/2024 11:24 PM [facility] Bacteria, Urine Negative Negative /HPF LAB URINALYSIS - AUTOMATED METHOD 06/13/2024 11:24 PM [facility] Hyaline Casts, Urine 10(H) 0 - 3 /LPF LAB URINALYSIS - AUTOMATED METHOD 06/13/2024 11:24 PM [facility] Urine Urine specimen obtained by clean catch procedure / Unknown Non-blood Collection / Unknown 06/13/2024 10:26 PM EDT 06/13/2024 10:59 PM EDT us Shabnam ACOSTA LAB URINE ORDERABLES Final Result Performing Organization Address City/[facility]/ZIP Co de Phone Number [facility] [address] [place] [address], [place] [phone] * Bowden urine culture tube (06/13/2024 10:26 PM EDT) Only the most recent of2 resultswithin the time period is included. Pathologist [facility] Extra Tube Hold for add-ons. 06/14/2024 12:02 AM EDT [facility] Comment:Auto resulted. Urine Urine specimen obtained by clean catch procedure / Unknown Non-blood Collection / Unknown 06/13/2024 10:26 PM EDT 06/13/2024 10:59 PM EDT Shabnam ACOSTA LAB URINE ORDERABLES Final Result Performing Organization Address [facility]/ZIP Co de Phone Number [facility] [address] [place] [address], [place] [phone] * (ABNORMAL) Drug abuse screen 8a panel, urine (06/13/2024 10:26 PM EDT) Pathologist [facility] Amphetamine Screen, Ur Positive(A ) Negative LAB CHEMISTRY METHOD 11:59 PM EDT [facility] Comment:Certain OTC medicati ons containing ephedrine, phenylephrine, pseudoephedrine and phenylpropanolamine can cause false positive results. Barbiturate Screen, Ur Negative Negative LAB CHEMISTRY METHOD 5 11:59 PM EDT [facility] Benzodiazepine Screen, Ur Negative Negative LAB CHEMISTRY METHOD 11:59 PM EDT [facility] Cocaine Screen, Ur Negative Negative LAB CHEMISTRY METHOD 5 11:59 PM EDT [facility] Opiate Screen, Ur Positive(A ) Negative LAB CHEMISTRY METHOD 5 11:59 PM EDT [facility] Cannabinoid (THC) Screen, Ur Negative Negative LAB CHEMISTRY METHOD 11:59 PM EDT [facility] Comment:Specimens from patie nts taking pantoprazole sodium (Protonix) have been shown to produce false positive results. Oxycodone Screen, Ur Negative Negative LAB CHEMISTRY METHOD 11:59 PM EDT [facility] Fentanyl, Ur Positive(A ) Negative LAB CHEMISTRY METHOD 11:59 PM EDT [facility] Urine Urine specimen obtained by clean catch procedure / Unknown Non-blood Collection / Unknown 06/13/2024 10:26 PM EDT 06/13/2024 10:59 PM EDT Narrative [facility] - 06/13/2024 11:59 PM EDT Assay cutoffs: Amphetamines ? 1000 ng/mL Barbiturates ?200 ng/mL Benzodiazepines ?? 200 ng/mL Cocaine ? 300 ng/mL Fentanyl ?1 ng/mL Opiates ? 300 ng/mL Oxycodone ? 100 ng/mL THC ?50 ng/mL Semi-quantitative assay for screening purposes only. Unconfirmed screening result should not be used for non-medical purposes. *ALTERNATE METHOD CONFIRMATION DONE UPON REQUEST ONLY* us Shabnam ACOSTA LAB URINE ORDERABLES Final Result [facility] [address] [place] [address], * CT Angio Chest wo and/or w Contrast (06/13/2024 9:48 PM EDT) Anatomical Region Laterality Modality Body Computed Tomogra phy 06/13/2024 10:3 9 PM EDT Impressions 06/13/2024 10:39 PM EDT No evidence of PE. This document has been electronically signed by: Clovis Odonnell MD on 06/13/2024 22:39:11 Narrative 06/13/2024 10:39 PM EDT INDICATION: PE suspected, high prob CT angiography chest with contrast. 3D Postprocessing. Comparison: None Findings: The heart is normal size. RV/LV ratio is normal. Unremarkable thoracic aorta and great vessels. No aneurysm. No acute pulmonary embolus. Diffuse esophageal mural thickening, nonspecific. Gynecomastia. Azygous fissure. Minimal atelectasis. No significant pleural effusion or pneumothorax. The upper abdomen is unremarkable. The bones are intact. Procedure Note Clovis Odonnell MD - 06/13/2024 INDICATION: PE suspected, high prob CT angiography chest with contrast. 3D Postprocessing. Comparison: None Findings: The heart is normal size. RV/LV ratio is normal. Unremarkable thoracic aorta and great vessels. No aneurysm. No acute pulmonary embolus. Diffuse esophageal mural thickening, nonspecific. Gynecomastia. Azygous fissure. Minimal atelectasis. No significant pleural effusion or pneumothorax. The upper abdomen is unremarkable. The bones are intact. IMPRESSION: No evidence of PE. This document has been electronically signed by: Clovis Odonnell MD on 06/13/2024 22:39:[address] PROCEDURES Final Re sult * (ABNORMAL) Procalcitonin (06/13/2024 6:54 PM EDT) Procalcitonin 0.37(H) <=0.16 ng/mL LAB CHEMISTRY METHOD 06/14/2024 7:36 AM EDT [facility] Blood Venous blood specimen / Unknown Venipuncture / Unknown 06/13/2024 6:54 PM EDT 06/13/2024 7:29 PM EDT Narrative [facility] - 06/14/2024 7:36 AM EDT Procalcitonin > 2.00 ng/ml: Procalcitonin Levels above 2.00 ng/ml, on the first day of ICU admission represent a high risk for progression to severe sepsis and/or septic shock. Procalcitonin < 0.50 ng/ml: Procalcitonin levels below 0.50 ng/ml on the first day of ICU admission represent a low risk for progression to severe sepsis and/or septic shock. Concentrations <0.5 ng/mL do not exclude an infection, on account of local ized infections (without systemic signs) which can be associated with such low concentrations, or a systemic infection in its initial stages (<6 hours). Furthermore, increased procalcitonin can occur without infection. PCT concentrations between 0.5 and 2.0 ng/mL should be interpreted taking into account the patient's history. It is recommended to retest PCT within 6-24 hours if any concentrations <2.0 ng/mL are obtained. Chicho Baron MD LAB BLOOD ORDERABLES Final Result Performing Organization Address [facility]/ZIP Co de Phone Number [facility] [address] [place] [address], * (ABNORMAL) C-reactive protein (06/13/2024 6:54 PM EDT) C-Reactive Protein 2.05(H) <=0.50 mg/dL LAB CHEMISTRY METHOD 06/14/2024 12:16 AM EDT [facility] Blood Venous blood specimen / Unknown Venipuncture / Unknown 06/13/2024 6:54 PM EDT 06/13/2024 7:29 PM EDT us Chicho Baron MD LAB BLOOD ORDERABLES Final Result Performing Organization Address [facility]/State/ZIP Co de Phone Number [facility] [address] [place] [address], [place] [phone] * Uric acid (06/13/2024 6:54 PM EDT) Uric Acid 6.4 3.7 - 9.2 mg/dL LAB CHEMISTRY METHOD 06/14/2024 12:48 AM EDT [facility] Blood Venous blood specimen / Unknown Venipuncture / Unknown 06/13/2024 6:54 PM EDT 06/13/2024 7:29 PM EDT Clarice ACOSTA LAB BLOOD ORDERABLES Final Resu lt Performing Organization Address City/[facility]/ZIP Co de Phone Number [facility] [address] [place] [address], [place] [phone] * (ABNORMAL) Lipase (06/13/2024 6:54 PM EDT) Only the most recent of2 resultswithin the time period is included. Lipase <10(L) 13 - 75 unit/L LAB CHEMISTRY METHOD 06/13/2024 8:08 PM EDT [facility] Blood Venous blood specimen / Unknown Venipuncture / Unknown 06/13/2024 6:54 PM EDT 06/13/2024 7:29 PM EDT Vinicio Barnett MD LAB BLOOD ORDERABLES Final Resu lt Performing Organization Address [facility] Co de Phone Number [facility] [address] [place] [address], [place] [phone] * Ethanol (06/13/2024 6:54 PM EDT) Only the most recent of3 resultswithin the time period is included. Ethanol Level <3 0 - 10 mg/dL LAB CHEMISTRY METHOD 06/14/2024 12:19 AM EDT [facility] Blood Venous blood specimen / Unknown Venipuncture / Unknown 06/13/2024 6:54 PM EDT 06/13/2024 7:29 PM EDT Clarice ACOSTA LAB BLOOD ORDERABLES Final Resu lt Performing Organization Address City/[facility]/ZIP Co de Phone Number [facility] [address] [place] [address], [place] [phone] * Vascular US Duplex Lower Extremity Venous Left (06/13/2024 6:00 PM EDT) Anatomical Region Laterality Modality Vascular, Abdomen Ultrasound 06/13/2024 7:20 PM EDT Impressions 06/13/2024 7:20 PM EDT 1. Negative for left lower extremity deep vein thrombosis. This document has been electronically signed by: Tiara Jeong DO on 06/13/2024 19:20:09 Narrative 06/13/2024 7:20 PM EDT INDICATION: pain VENOUS DUPLEX ULTRASOUND LEFT LOWER EXTREMITY Comparison: None Findings: The visualized deep veins are fully compressible with normal Doppler color flow and spectral tracings. There is flow in the greater saphenous confluence. No popliteal cyst. Procedure Note Tiara Jeong DO - 06/13/2024 INDICATION: pain VENOUS DUPLEX ULTRASOUND LEFT LOWER EXTREMITY Comparison: None Findings: The visualized deep veins are fully compressible with normal Dopplercolor flow and spectral tracings. There is flow in the greater saphenous confluence. No popliteal cyst. IMPRESSION: 1. Negative for left lower extremity deep vein thrombosis. This document has been electronically signed by: Tiara Jeong DO on 06/13/2024 19:20:09 Vinicio Barnett MD CV VASCULAR PROCEDURES Final Re sult * (ABNORMAL) Phosphorus (06/07/2024 5:23 AM EDT) Phosphorus 2.2(L) 2.5 - 4.5 mg/dL LAB CHEMISTRY METHOD 06/07/2024 7:10 AM EDT [facility] Blood Venous blood specimen / Unknown Venipuncture / Unknown 06/07/2024 5:23 AM EDT 06/07/2024 6:17 AM EDT Jono Sutherland MD LAB BLOOD ORDERABLES Huma l Result [facility] [address] [place] [address], [place] [phone] * SST tube (06/06/2024 5:18 AM EDT) Extra Tube Hold for add-ons. 06/06/2024 7:02 AM EDT [facility] Comment:Auto resulted. Blood Venous blood specimen / Unknown 06/06/2024 5:18 AM EDT 06/06/2024 5:35 AM EDT us Jono Sutherland MD LAB BLOOD ORDERABLES Huma l Result [facility] [address] [place] [address], [place] [phone] * Lavender tube (06/06/2024 5:18 AM EDT) Extra Tube Hold for add-ons. 06/06/2024 7:02 AM EDT [facility] Comment:Auto resulted. Blood Venous blood specimen / Unknown 06/06/2024 5:18 AM EDT 06/06/2024 5:35 AM EDT us Jono Sutherland MD LAB BLOOD ORDERABLES Huma l Result [facility] [address] [place] [address], [place] [phone] * Lactate (06/06/2024 5:18 AM EDT) Only the most recent of2 resultswithin the time period is included. Lactate 1.1 0.4 - 2.0 mmol/L LAB CHEMISTRY METHOD 06/06/2024 6:10 AM EDT [facility] Blood Venous blood specimen / Unknown Venipuncture / Unknown 06/06/2024 5:18 AM EDT 06/06/2024 5:34 AM EDT Angel ACOSTA LAB BLOOD ORDERABLES Final Res ult Performing Organization Address [facility] de Phone Number [facility] [address] [place] [address], [place] [phone] * D-Dimer (Quantitative) (06/06/2024 2:09 AM EDT) Pathologist [facility] D-Dimer, Quant (D-DU) <150 <=230 ng/mL DDU LAB COAGULATION METHOD 06/06/2024 2:31 AM EDT [facility] Blood Venous blood specimen / Unknown Venipuncture / Unknown 06/06/2024 2:09 AM EDT 06/06/2024 2:13 AM EDT Narrative [facility] - 06/06/2024 2:31 AM EDT D-Dimer <230 ng/mL (D-Dimer units) is the threshold for exclusion of DVT/PE. D-Dimer may be elevated in: Critically ill, severely infected, trauma patients, DIC, acute CVA, acute HI, unstable angina, AF, old age, , and smoking. D-Dimer may be decreased with: Initiation of heparin therapy and oral anticoagulants. us Garrett ACOSTA LAB BLOOD ORDERABLES Final Resul t Performing Organization Address [facility] de Phone Number [facility] [address] [place] [address], [place] [phone] * (ABNORMAL) Lactate, with reflex (06/06/2024 12:51 AM EDT) Only the most recent of2 resultswithin the time period is included. Pathologist [facility] LACTIC ACID 2.3(H) 0.4 - 2.0 mmol/L LAB CHEMISTRY METHOD 06/06/2024 1:22 AM EDT [facility] Blood Venous blood specimen / Unknown Venipuncture / Unknown 06/06/2024 12:51 AM EDT 06/06/2024 12:56 AM EDT us Garrett ACOSTA LAB BLOOD ORDERABLES Final Resul t [facility] [address] [place] [address], [place] [phone] * CT Abdomen Pelvis w Contrast (06/05/2024 8:49 PM EDT) Anatomical Region Laterality Modality Body Computed Tomogra phy 06/05/2024 9:42 PM EDT Impressions 06/05/2024 9:42 PM EDT 1. Significant colonic stool, correlate with constipation. Dilated colonic loops up to 5 cm likely ileus. 2. Chronic pancreatitis. This document has been electronically signed by: Georgia Miller MD on 06/05/2024 21:42:53 Narrative 06/05/2024 9:42 PM EDT INDICATION: Epigastric pain CT abdomen and pelvis with contrast Comparison: None Findings: The lung bases are clear. Gallbladder is unremarkable. No biliary ductal dilatation. Liver and spleen are unremarkable. Pancreas is atrophic with diffuse punctate calcifications throughout the pancreas suggestive of chronic pancreatitis. No peripancreatic inflammatory stranding to suggest acute pancreatitis. Adrenal glands are normal. Enhancement of bilateral kidneys with no ureteral stones and no hydronephrosis or hydroureter. No bowel obstruction, pneumoperitoneum, or pneumatosis. There is significant colonic stool in the colon is elongated and redundant with dilated colonic loops in upper and mid abdomen anteriorly up to 5 cm. Small bowels not distended. No free fluid. No loculated fluid collection. Normal appendix. Mildly distended urinary bladder which otherwise appears unremarkable. Prostate normal in size. Abdominal aorta normal in size. Minimal fat containing umbilical hernia. The bones are intact. Procedure Note Georgia Miller MD - 06/05/2024 INDICATION: Epigastric pain CT abdomen and pelvis with contrast Comparison: None Findings: The lung bases are clear. Gallbladder is unremarkable. No biliary ductal dilatation. Liver and spleen are unremarkable. Pancreas is atrophic with diffuse punctate calcifications throughout the pancreas suggestive of chronic pancreatitis. No peripancreatic inflammatory stranding to suggest acute pancreatitis. Adrenal glands are normal. Enhancement of bilateral kidneys with no ureteral stones and no hydronephrosis or hydroureter. No bowel obstruction, pneumoperitoneum, or pneumatosis. There is significant colonic stool in the colon is elongated andredundant with dilated colonic loops in upper and mid abdomen anteriorly up to 5cm. Small bowels not distended. No free fluid. No loculated fluidcollection. Normal appendix. Mildly distended urinary bladder which otherwise appears unremarkable. Prostate normal in size. Abdominal aorta normal in size. Minimal fat containing umbilical hernia. The bones are intact. IMPRESSION: 1. Significant colonic stool, correlate with constipation. Dilatedcolonic loops up to 5 cm likely ileus. 2. Chronic pancreatitis. This document has been electronically signed by: Georgia Miller MD on 06/05/2024 21:42:[address] PROCEDURES Final Result * ECG-Outside (05/10/2024) Only the most recent of2 resultswithin the time period is included. Provider Onbase ECG ORDERABLES Final Result * CT Head wo Contrast (05/09/2024 3:48 PM EDT) Anatomical Region Laterality Modality Head and Neck Computed Tomogra phy 05/09/2024 3:55 PM EDT Impressions 05/09/2024 4:01 PM EDT No intracranial hemorrhage. No mass. No focal area of abnormal brain attenuation. ?? -------- FINAL REPORT -------- Dictated By: Bharath Clayton Dictated Date: 05/09/2024 15:55 ET Assigned Physician: Bharath Clayton Reviewed and Electronically Signed By: Bharath Clayton Signed Date: 05/09/2024 16:01 ET Workstation ID: [id number] Transcribed By: Self Edit Transcribed Date: 05/09/2024 15:55 ET Narrative 05/09/2024 4:01 PM EDT EXAMINATION: CT HEAD WITHOUT CONTRAST CLINICAL INFORMATION: Mental status change. ??Disoriented. Passed out on couch. Slurred speech. Tachypnea. COMPARISON: None ?? TECHNIQUE: Multidetector CT. Examination of the head. Examination of the head without IV contrast. Reformatting in the coronal and sagittal planes. DLP: 809 mGy-cm Dose optimization was performed including the use of low-dose iterative reconstruction technique with automatic exposure control based on patient size. Type of contrast: None Volume of IV contrast: None Volume of contrast discarded: 0 mL FINDINGS: Intracranial hemorrhage: No evidence of recent intracranial hemorrhage. Ventricles, cisterns and sulci: ??There is no midline shift. The ventricle cisterns and sulci appear within normal limits. Extra-axial mass or collections: No extra-axial mass or collection ?? Intra-axial mass: No mass demonstrated Acute infarct: No acute territorial infarct demonstrated. ?? White matter disease: No significant white matter disease demonstrated. ?? Bowden-white interface: No disruption of the bowden-white interface. ?? Paranasal sinuses: The visualized paranasal sinuses are well pneumatized and aerated ?? Osseous/Scalp: ??No focal bony lesion Procedure Note Bharath Clayton MD - 05/09/2024 EXAMINATION: CT HEAD WITHOUT CONTRAST CLINICAL INFORMATION: Mental status change. Disoriented. Passed out on couch. Slurred speech.Tachypnea. COMPARISON: None TECHNIQUE: Multidetector CT. Examination of the head. Examination of the head without IV contrast. Reformatting in the coronal and sagittal planes. DLP: 809 mGy-cm Dose optimization was performed including the use of low-dose iterativereconstruction technique with automatic exposure control based on patientsize. Type of contrast: None Volume of IV contrast: None Volume of contrast discarded: 0 mL FINDINGS: Intracranial hemorrhage: No evidence of recent intracranial hemorrhage. Ventricles, cisterns and sulci: There is no midline shift. The ventriclecisterns and sulci appear within normal limits. Extra-axial mass or collections: No extra-axial mass or collection Intra-axial mass: No mass demonstrated Acute infarct: No acute territorial infarct demonstrated. White matter disease: No significant white matter disease demonstrated. Bowden-white interface: No disruption of the bowden-white interface. Paranasal sinuses: The visualized paranasal sinuses are well pneumatizedand aerated Osseous/Scalp: No focal bony lesion IMPRESSION: No intracranial hemorrhage. No mass. No focal area of abnormal brain attenuation. -------- FINAL REPORT -------- Dictated By: Bharath Clayton Dictated Date: 05/09/2024 15:55 ET Assigned Physician: Bharath Clayton Reviewed and Electronically Signed By: Bharath Clayton Signed Date: 05/09/2024 16:01 ET Workstation ID: [id number] Transcribed By: Self Edit Transcribed Date: 05/09/2024 15:55 ET us Vasyl ACOSTA IMG CT PROCEDURES Final Resul t * (ABNORMAL) Venous blood gas (05/09/2024 3:31 PM EDT) pH, Denzel 7.31(L) 7.32 - 7.42 pH 05/09/2024 3:51 PM EDT [facility] pCO2, Denzel 43 41 - 51 mmHg 05/09/2024 3:51 PM EDT [facility] pO2, Denzel 38 25 - 40 mmHg 05/09/2024 3:51 PM EDT [facility] HCO3, Venous 20.6(L) 22.0 - 26.0 mmol/L 05/09/2024 3:51 PM EDT [facility] O2 Sat, Denzel 63.4 % 05/09/2024 3:51 PM EDT [facility] Base Excess, Denzel -4.5(L) -2.0 - 2.0 mmol/L 05/09/2024 3:51 PM EDT [facility] Blood Venous blood specimen / Unknown Venipuncture / Unknown 05/09/2024 3:31 PM EDT 05/09/2024 3:48 PM EDT us Mena Jones DO LAB BLOOD ORDERABLES Huma l Result [facility] [address] [place] [address], [place] [phone] * (ABNORMAL) Thyroid stimulating hormone (TSH) (05/09/2024 12:40 PM EDT) Pathologist [facility] TSH 0.12(L) 0.40 - 4.00 mcIU/mL LAB CHEMISTRY METHOD 05/09/2024 1:25 PM EDT [facility] Blood Venous blood specimen / Unknown Venipuncture / Unknown 05/09/2024 12:40 PM EDT 05/09/2024 12:45 PM EDT Vasyl Frank PA LAB BLOOD ORDERABLES Final Re sult Performing Organization Address [facility]/ZIP Co de Phone Number [facility] [address] [place] [address], [place] [phone] * (ABNORMAL) Creatine kinase (05/09/2024 12:40 PM EDT) [facility] Total CK 914(H) 22 - 269 unit/L LAB CHEMISTRY METHOD 05/09/2024 3:38 PM EDT [facility] Blood Venous blood specimen / Unknown Venipuncture / Unknown 05/09/2024 12:40 PM EDT 05/09/2024 12:45 PM EDT Mena Jones DO LAB BLOOD ORDERABLES Huma l Result Performing Organization Address [facility]/ZIP Co de Phone Number [facility] [address] [place] [address], [place] [phone] * (ABNORMAL) Acetaminophen level (05/09/2024 12:40 PM EDT) [facility] Acetaminophen Level <2.0(L) 10.0 - 30.0 mcg/mL LAB CHEMISTRY METHOD 05/09/2024 1:33 PM EDT [facility] Blood Venous blood specimen / Unknown Venipuncture / Unknown 05/09/2024 12:40 PM EDT 05/09/2024 12:45 PM EDT Nick Medel MD LAB BLOOD ORDERABLES Huma l Result Performing Organization Address City/[facility]/ZIP Co de Phone Number [facility] [address] [place] [address], [place] [phone] * (ABNORMAL) Salicylate level (05/09/2024 12:40 PM EDT) Salicylate Level <1.7(L) 2.0 - 29.0 mg/dL LAB CHEMISTRY METHOD 05/09/2024 1:15 PM EDT [facility] Blood Venous blood specimen / Unknown Venipuncture / Unknown 05/09/2024 12:40 PM EDT 05/09/2024 12:45 PM EDT Nick Medel MD LAB BLOOD ORDERABLES Huma l Result Performing Organization Address [facility] Co de Phone Number [facility] [address] [place] [address], [place] [phone] from Last 3 Months Insurance [place]IC[place] Advance Directives * Full Code - Default (Latest Code Status on File) Date Activated Date Inactivated Comments 06/13/2024 11:27 PM 06/14/2024 7:06 PM This is ord er is used when code status has not been discussed with the patient, or code status is otherwise unknown/unconfirmed To update the patient's code status, place a code status order. Do not modify or discontinue any currently active code status orders. * Full Code - Default Date Activated Date Inactivated Comments 06/06/2024 1:02 AM 06/07/2024 5:02 PM This is order is used when code status has not been discussed with the patient, or code status is otherwise unknown/unconfirmed To update the patient's code status, place a code status order. Do not modify or discontinue any currently active code status orders. Care Teams Floor Cashier Relationship Specialty Start Date End Date Jsoh Velez DO [address] [facility] [address] [place], [place] PCP - General Internal Medicine 06/06/24
== END 2024-06-28 11:32 | disposition home or self-care (01) ==
LOC: HO.HGI 09:40
PROVIDERS: PCP Internal Medicine; Visit Provider Internal Medicine Gastroenterology
DX: K86.0 Alcohol-induced chronic pancreatitis (principal)
CPT/HCPCS: 99214

== ENCOUNTER → 2024-06-28 09:40 | Outpatient (BNVA) | payer MEDICARE, MEDICAID, SELFPAY | PROVIDERS: PCP Internal Medicine; Visit Provider Internal Medicine Gastroenterology ==

== ENCOUNTER 2024-10-25 10:30 | Outpatient (AMB) | payer MEDICARE, MEDICAID, SELFPAY ==
--- NOTE | 2024-10-25 10:30 | A.OFFVIS_ITS ---
Intake Visit Reasons: 4m f/u Intake Note: Kt presents as a telehealth today 4 month follow up. CC: States that he feels like it has made a huge difference from taking TWO linzess in the day. 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: No Allergies No Known Allergies (No Known Allergies*) Allergy (Verified 10/25/24 10:31) HPI HPI 4m f/u: Details: 34 yr old m being called for f/u for chronic pancreatitis RECAP; Hx of chronic pancreatitis related to alcohol he was c/o general body aches he feels constipated and takes miralax which helps, if not taking will n ot go to toilet for [address] for years, since even as a young child lots of anxiety has abdominal pain around umbilicus, soreness, can be 10/10 in severity if he passes stool or gas helps reduce pain appetite is fair, trying gluten free diet occ gerd, no dysphagia has joint pains, aches in general, no swollen joints he was on lyrica for pain but was changed to gabapentin He has been alcohol free for long time now CTe abdo-- 09/2019--calcified and atrophic pancreas, mild accentuation of the valvulae conniventes mid to distal jejunum and mid ileum without focal wall thickening He had been following up with pain mx, he had celiac axis blockade with short term benefit, he also failed nerve stimulator Gene testing: neg for SPINK and CFTR, for some reason PRSS was not checked MRI: 12/2021 atrophic pancreas, dilated, irreg PD, possible stricture of panc head but not well visualized MRI 2022 PD 5 mm--irregular sequela of chronic panc noted, no masses EGD/colo: 03/2023 Impression and Post Procedure Diagnosis: internal hemorrhoids bile acid reflux gastritis Plan: trial of bile acid binder- welchol US doppler r/o SMA thrombosis await rectal bx bx: pos h pylori, pos ganglion cells on staining, some rectal congestion H pylori: negative Repeat EGD 08/24 due to ongoing sx: again bile acid noted no h pylori seen INTERIM: enjoying the summer got a puppy and makes him feel a little better he has been taking x 2 linalcotide and working better for him nausea has been severe maybe few time a week, not every day not using THC mental health has been bad recently -depressed --no SI seeing psych on cocktail of meds he asked abt restarting mirtazepine EXAM: relaxed, low affect talking easily not distressed good color Assessments 1. gastroparesis 2. h pylori --cured 3. 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 depression, possible causing somatic complaints--ongoing PLAN: /1 - cont with linaclotide can double if needed 2/ advised we need psych provider details, and can ask if ok to restart mirtazepine PFSH Medical History GERD (gastroesophageal reflux disease) Depression Chronic pain syndrome Anxiety Chronic abdominal pain Chronic pancreatitis Surgical History History of esophagogastroduodenoscopy (EGD) Family History Father No problems noted. Mother No problems noted. Maternal Grandmother Pancreatic cancer Social History Household Members: Family and None Alcohol intake: current Alcohol intake frequency: former alcohol drinker Patient Tobacco Use Status: Current everyday Tobacco user Tobacco use type: Smokeless Tobacco Substance Use Type: Marijuana Telehealth Telehealth Telehealth Platform: [employer] Location of provider rendering services: practice address Location of patient: address on file Patient Identification confirmed using: Name, : Yes Telehealth method: video Patient verbally consented to treatment: Yes Patient verbally consented to billing insurance company: Yes Patient informed of any privacy concerns related to visit: Yes Minutes spent on Phone/Video with Pt.: 11 Assessment & Plan Assessment & Plan (1) Chronic pancreatitis: Code(s): K86.1 - Other chronic pancreatitis Category: Medical Qualifiers: Pancreatitis type: alcohol induced Qualified Code(s): K86.0 - Alcohol- induced chronic pancreatitis Plan as above Medications: Refilled linaclotide (Linzess) 290 mcg PO QAM 30 caps 4RF Coding Level of Care Code Tele Est Pt Level 3 (76092) Diagnoses Alcohol-induced chronic pancreatitis K86.0 Pancreatitis type: alcohol induced
--- OUTSIDE RECORDS SUMMARY | 2024-10-25 11:39 | XMS_ITS | Clinical Summary ---
Author Organization [facility] Address [address] [facility] [address] [place] [phone] Phone Care Team Providers Care Process Steward Name Role Phone Josh Velez Primary Care Provider [phone] Parth Khanna MD Unavailable Allergies No known active allergies Medications No known medications Active Problems Problem Noted Date Diagnosed Date Arthralgia of multiple sites, bilateral 09/29/19 20 Borderline Lyme serology 09/29/2019 Lyme disease with largest skin lesion of 2 inche s or more 09/29/2019 Major depressive disorder in partial remission 0 09/29/2019 Attention deficit hyperactivity disorder 018 Depressive disorder 08/04/2017 Acute pancreatitis 07/04/2017 Alcohol abuse 07/04/2017 Anxiety 07/04/2017 Family History Medical History Relation Comments Hypertension Father 2 Relation Status Comments Father 1 Alive Father 2 Social History Tobacco Use Types Packs/Day Years Used Date Smoking Tobacco: Former Smokeless Tobacco: Never Alcohol Use Standard Drinks/Week Comments Not Currently 0 (1 standard drink = 0.6 oz pur e alcohol) Education Answer Date Recorded Are you interested in more education? Not on feliciano e 06/28/2022 Are you concerned about learning? Not on file 06/28/2022 No 06/28/2022 No 06/28/2022 Digital Access Answer Date Recorded No 07/26/2022 No 07/26/2022 Reliable internet access at home? Not on file 07/26/2022 Device with a working camera? Not on file Sex and Gender Information Value Date Recorded Sex Assigned at Not on file Legal Sex Male 9:06 PM EDT Gender Identity Not on file Sexual Orientation Not on file Last Filed Vital Signs Vital Sign Reading Time Taken Comments Blood Pressure 130/85 09/29/2019 8:06 PM EDT Pulse 76 09/29/2019 8:06 PM EDT Temperature 36.9 C (98.4 F) 09/29/2019 8:06 PM EDT Respiratory Rate 16 09/29/2019 8:06 PM EDT Oxygen Saturation 100% 09/29/2019 8:06 PM EDT Inhaled Oxygen Concentration - - Weight 83.5 kg (184 lb) 05/10/2014 3:46 AM EDT Height 180.3 cm (5' 11 ) 05/10/2014 3:46 AM EDT Body Mass Index 25.66 05/10/2014 3:46 AM EDT Plan of Treatment Health Maintenance Due Date Last Done Comments Adult Td,Tdap Booster 1988 LIPID PANEL 1988 DEPRESSION SCREENING 2000 SMOKING Hx and SMOKELESS TOB ACCO SCREENING 2001 HEPATITIS C SCREENING 2006 HIV ONE-TIME SCREENING (18-6 5 YEARS) 2006 COVID-19 VACCINE (2023-2 5 season) 2023 05/20/2020 INFLUENZA VACCINE (#1) 2024 HEPATITIS A VACCINES Aged Out No long er eligible based on patient's age to complete this topic HIB VACCINES Aged Out No longer eligi ble based on patient's age to complete this topic MENINGOCOCCAL VACCINES (ACWY) Aged Out No longer eligible based on patient's age to complete this topic MENINGOCOCCAL VACCINES (B) Aged Out N o longer eligible based on patient's age to complete this topic PNEUMOCOCCAL VACCINES (0-49 years) Aged Out No longer eligible based on patient's age to complete this topic Medical Devices Not on file Insurance [facility] Member Subscriber Plan / Payer (Ef fective 2019-Present) Name:Kt Ibrahim Relation to Subscriber:Self Name:Kt Ibrahim Payer ID:Not on file Type:HMO Address: [address] Member Subscriber Plan / Payer (Ef fective 2019-Present) Name:Kt Ibrahim Relation to Subscriber:Self Name:Kt Ibrahim Payer ID:Not on file Type:HMO Address: [place] [id number] [facility] Member Subscriber Plan / Payer (Ef fective 2019-Present) Name:Kt Ibrahim Relation to Subscriber:Self Name:Kt Ibrahim Payer ID:Not on file Type:HMO Address: [address] [facility] O Member Subscriber Plan / Payer (Ef fective 2019-Present) Name:Kt Ibrahim Relation to Subscriber:Self Name:Kt Ibrahim Payer ID:Not on file Type:HMO Address: [place] [id number] [facility] Member Subscriber Plan / Payer (Ef fective 2019-Present) Name:Kt Ibrahim Relation to Subscriber:Self Name:Kt Ibrahim Payer ID:Not on file Type:HMO Address: [address] [facility] Member Subscriber Plan / Payer (Ef fective 2019-Present) Name:Kt Ibrahim Relation to Subscriber:Self Name:Kt Ibrahim Payer ID:Not on file Type:HMO Address: [address] [facility] Member Subscriber Plan / Payer (Ef fective 2019-Present) Name:Kt Ibrahim Relation to Subscriber:Self Name:Kt Ibrahim Payer ID:Not on file Type:HMO Address: [address] [facility] Member Subscriber Plan / Payer (Ef fective 2019-Present) Name:Kt Ibrahim Relation to Subscriber:Self Name:Kt Ibrahim Payer ID:Not on file Type:HMO Address: [place] [id number] [facility] H[facility] Member Subscriber Plan / Payer (Ef fective 2019-Present) Name:Kt Ibrahim Relation to Subscriber:Self Name:Kt Ibrahim Payer ID:Not on file Type:HMO Address: [address] [place] [id number] Care Teams Process Steward Relationship Specialty Start Date End Date Josh Velez DO PCP - General 03/06/17 Parth Khanna MD [email or web address] PCP - Hematology/Oncology Hematology and Oncology 06/18/19 Additional Source Comments The information contained in this document represents components of the legal health record. It is not the complete legal health record.[facility]
--- OUTSIDE RECORDS SUMMARY | 2024-10-25 11:39 | XMS_ITS | Clinical Summary ---
Author Organization [facility] Address [address] [place] [address] Phone Care Team Providers Care Marketing Researcher Name Role Phone Josh Velez DO Primary Care Provider [phone] Allergies No known active allergies Medications clonazePAM (KlonoPIN) 1 mg tablet Take 1 mg by mouth 2 times daily as needed. Active pancrelipase, Dxu-Jlna-Snng, (CREON) 12,000-38,000 -60,000 unit capsule Take 3 Caps by mouth 3 times daily. Active methadone (DOLOPHINE) 10 mg tabletIndication s:opioid use disorder Take 10.5 tablets (105 mg total) by mouth 1 (one) time each day at the same time. VERIFIED WITH N ON , LAST DOSED / Active hyoscyamine (ANASPAZ,LEVSIN) 0.125 mg tablet Take 1 [...] Active naloxone (NARCAN) 4 mg/0.1 mL nasal sprayIndications :opioid overdose,opioid- induced respiratory depression Administer 1 each (4 mg total) into affected nostril(s) if needed for opioid reversal or respiratory depression. Give 4 mg (1 spray) into one nostril. May repeat every 2-3 minutes if needed, alternating nostrils, until medical assistance becomes available. 2 each 5 06/08/19 26 Active doxepin (SINEquan) 10 mg capsule Take 3 capsules (30 mg total) by mouth at bedtime. 5 Active vilazodone (VIIBRYD) 20 mg tablet Take 1 tablet (20 mg total) by mouth 1 (one) time each day. Active furosemide (LASIX) 20 mg tablet Take 1 tablet (20 mg total) by mouth 1 (one) time each day for 5 days. 5 each 5 Active Active Problems Problem Noted Date Diagnosed Date Acute cystitis with hematuria 06/23/2024 Hyperglycemia 06/23/2024 Elevated troponin 06/13/2024 Chronic pancreatitis, unspec ified pancreatitis type ([facility] V24, [facility] V28) 06/06/2024 Assessment & Plan (06/06/2024 5:03 AM EDT): - Known chronic pancreatitis from alcohol abuse, albeit has a sustained remission of alcohol abuse - Continue pain control; consider input of GI team in further evaluation of possible flareup of chronic pancreatitis Opioid abuse ([facility] V24, [facility] V28) 06/07/19 25 Assessment & Plan (06/06/2024 [...] pain control program - Consider GI consult Surgical History Surgery Date Site/Laterality Comments OTHER SURGICAL HISTORY PROCEDURE: DENIES PREVIOUS SURGERY Medical History Medical History Date Comments Pancreatitis Chronic Pancreat itis Depression DX:Depression Chronic alcoholic pancreatit is ([facility] V24, [facility] V28) History of alcohol abuse Reports Sobriety since 2019 Opioid abuse ([facility] V24, [facility] V28) On methadone / with use [...] for your loved ones. For example, child watch attendant or elderly care for an older adult? [...] 105 06/24/2024 12:03 AM EDT Temperature 36.7 C (98.1 F) 06/24/2024 12:03 AM EDT Respiratory Rate 19 06/24/2024 12:03 AM EDT [...] 5 Years) and At-Risk Patients (6 to 49 Years) (1 of 2 - PCV) 09/03/2007 COVID-19 Vaccine (3 2023-2 5 season) 2023 06/14/2020, 05/20/2020 Depression Screening 03/03/2024 Cholesterol Screening (Lipid Panel) 06/05/2024 HIV Screening 06/05/2024 Medicare Annual Wellness Visit 06/05/2024 Influenza Vaccine (#1) 2024 Social Influencers of Health Screening 06/06/2025 [...] Procedure Name Priority Date/Time Associated Diagnosis Comments HEPATITIS PANEL, ACUTE WITH REFLEX TO CONFIRMATION Routine 06/14/2024 5:08 AM EDT from Last 3 Months or Most Recently Relevant to Health Maintenance Results * (ABNORMAL) Hepatitis panel, acute with reflex to confirmation (06/14/2024 5:08 AM EDT) Hepatitis B Surface Ag Positive(A) Negative LAB CHEMISTRY METHOD 06/14/2024 10:36 AM EDT [facility] Hepatitis A Antibody IgM Negative Negative LAB CHEMISTRY METHOD 06/14/2024 10:36 AM EDT [facility] Hep B Core IgM Negative Negative LAB CHEMISTRY METHOD 06/14/2024 10:36 AM EDT [facility] Hepatitis C Antibody Negative Negative LAB CHEMISTRY METHOD 06/14/2024 10:36 AM EDT [facility] Blood Venous blood specimen / Unknown Venipuncture / Unknown 06/14/2024 5:08 AM EDT 06/14/2024 5:13 AM EDT Clarice ACOSTA LAB BLOOD ORDERABLES Final Resu lt [facility] [address] [place] [address], from Last 3 Months or Most Recently Relevant to Health Maintenance Insurance MEDICARE MEDICAID - [place] MEDICARE MEDICAID [...] currently active code status orders. Care Teams Marketing Researcher Relationship Specialty Start Date End Date Josh Velez DO [address] [facility] [address] [place], [place] PCP - General Internal Medicine 06/06/24
== END 2024-10-25 11:02 | disposition home or self-care (01) ==
LOC: HO.HGI 10:30
PROVIDERS: PCP Internal Medicine; Visit Provider Internal Medicine Gastroenterology
DX: K86.0 Alcohol-induced chronic pancreatitis (principal)
CPT/HCPCS: 99213